=== PATIENT | male | born 1945 | race Caucasian/White ===

== ENCOUNTER 2021-01-01 22:15 | Emergency (ER) | payer OTHER ==
[~2021-01-01] VITALS: Ht 177.8 cm; Wt 63.5 kg
[~2021-01-01 22:15] MED LIST: RANI150 PO
[2021-01-01] MEDS ORDERED: ZESTORETIC 20-1 EAC1 (22:42)
[2021-01-01 22:54] LABS: BASOPHILS ABSOLUTE AUTO 0.04 K/mm3 (0.00-0.23); BASOPHILS PERCENT AUTO 0 % (0-2); EOSINOPHILS PERCENT AUTO 2 % (0-6); Hematocrit 38.8 % (37.0-53.0); Hemoglobin 13.7 g/dL (13.5-17.5); IMMATURE GRAN ABSOLUTE AUTO 0.06 K/mm3 (0.00-0.10); IMMATURE GRAN PERCENT AUTO 1 % (0-1); LYMPHOCYTES ABSOLUTE AUTO 2.42 K/mm3 (0.84-5.20); LYMPHOCYTES PERCENT AUTO 22 % (21-46); MONOCYTES ABSOLUTE AUTO 0.77 K/mm3 (0.16-1.47); MONOCYTES PERCENT AUTO 7 % (4-13); Mean Corpuscular HGB 32.5 pg (26.0-34.0); Mean Corpuscular HGB Conc 35.3 g/dL (31.5-36.5); Mean Corpuscular Volume 92 fL (80-100); Mean Platelet Volume 10.1 fL (9.1-12.4); NEUTROPHILS ABSOLUTE AUTO 7.61 K/mm3 (1.96-9.15); NEUTROPHILS PERCENT AUTO 69 % (41-73); Platelet Count 263 K/mm3 (150-400); RDW Coefficient Variation 12.5 % (11.7-14.2); RDW Standard Deviation 42.1 fL (35.1-46.3); Red Blood Cell Count 4.22 M/mm3 (4.30-5.90)
[2021-01-01 22:55] LABS: Source, Urine Voided
[2021-01-01 22:57] LABS: Bilirubin, Urine Neg (Neg); Blood, Urine 1+ (Neg); Glucose Qualitative, Urine Neg (Neg); Ketones, Urine Neg (Neg); Leukocyte Esterase, Urine Neg (Neg); Nitrite, Urine Neg (Neg); Protein, Urine Neg (Neg); Urobilinogen, Urine NORM (Normal); pH, Urine 6.5 (5.0-8.0)
[2021-01-01 23:08] LABS: International Normalized Ratio 0.98; Prothrombin Time Results 10.5 Sec (9.7-11.5)
[2021-01-01 23:09] LABS: Appearance, Urine Clear (Clear); Bacteria Not Seen /hpf; Color, Urine Yellow (P-Yellow); Red Blood Cells, Urine Rare /hpf (0-2); Squamous Epithelial Cells Not Seen /hpf (Few); White Blood Cells, Urine Not Seen /hpf (0-5)
[2021-01-01 23:13] LABS: Ethanol (Alcohol), Blood, Med 227 mg/dL
[2021-01-01 23:14] LABS: Alanine Aminotransfer (ALT/SGP 18 U/L (12-78); Albumin, Blood 3.9 g/dL (3.4-5.0); Albumin/Globulin Ratio 1.1 (0.8-1.8); Alk Phos 52 U/L (50-136); Anion Gap 10 mmol/L (6-16); Aspartate Aminotrans (AST/SGOT 31 U/L (12-37); Bilirubin, Total 0.6 mg/dL (0.1-1.0); Blood Urea Nitrogen 9 mg/dL (8-24); Bun/Creatinine Ratio 10.9 (12.0-20.0); CO2, Blood 26 mmol/L (21-32); Calcium, Blood 8.9 mg/dL (8.5-10.1); Chloride, Blood 98 mmol/L (98-108); Creatinine, Blood 0.83 mg/dL (0.60-1.20); Globulin, Blood 3.7 g/dL (2.2-4.0); Glomerular Filtration Rate >60 (60-); Glucose, Blood 112 mg/dL (70-99); Potassium, Blood 3.1 mmol/L (3.5-5.5); Sodium, Blood 134 mmol/L (136-145); Total Protein, Blood 7.6 g/dL (6.4-8.2); Troponin I <0.015 ng/mL (0.000-0.040)
[2021-01-02 02:04] LABS: Influenza A, PCR NEGATIVE (NEGATIVE); Influenza B, PCR NEGATIVE (NEGATIVE); Resp Syncytial Virus, PCR NEGATIVE (NEGATIVE); SARS-Cov-2 (COVID-19) PCR, MMC NEGATIVE (NEGATIVE)
[2021-05-12] MEDS ORDERED: CHLO25B PO (17:02)
[2021-05-12] MEDS ORDERED: CREON DR 12,001 EACH PT (17:03)
[2021-05-12] MEDS ORDERED: DOCU LIQUI50 MG/5 ML PO (17:04)
[2021-05-12] MEDS ORDERED: FENTANYL1 EAC7 TOP (17:04)
[2021-05-12] MEDS ORDERED: HYDHCL25 PO (17:05)
[2021-05-12] MEDS ORDERED: NAPROXEN250 MG PO (17:05)
[2021-05-12] MEDS ORDERED: MIRALAX17 GM PO (17:06)
[2021-05-12] MEDS ORDERED: Protonix40 M1 PO (17:06)
[2021-05-12] MEDS ORDERED: SERT20L PO (17:07)
[2021-05-24] MEDS ORDERED: DILAUDID 00.5 MG/0.1 PO (07:51)
[2021-05-24] MEDS ORDERED: Ativan1 MG PO (07:52)
[2021-05-24] MEDS ORDERED: ONDA4SO PO (07:53)
[2021-05-24] MEDS ORDERED: DULCOLAX400 MG/51 PO (07:53)
== END 2021-01-02 02:31 | disposition short-term general hospital (02) ==
LOC: ER 22:15
PROVIDERS: Emergency Medicine
DX: S09.90XA Unspecified injury of head, initial encounter (principal); X58.XXXA Exposure to other specified factors, initial encounter; Z20.822 Contact with and (suspected) exposure to COVID-19
CPT/HCPCS: 0241U; 70450; 71045; 72125; 80053; 81001; 84484; 85025; 85610; 90471; 90714; 93005; 93010; 96374; 96376; 99285-25; G0480; J3010; L0160

== ENCOUNTER 2021-02-01 09:53 | Inpatient (IN) | payer OTHER ==
[~2021-02-01] VITALS: Ht 177.8 cm; Wt 70.2 kg
[~2021-02-01 09:53] MED LIST changes: +ZESTORETIC 20-1 EAC1
[2021-02-01] MEDS ORDERED: Adalat/Procardi10 MG (10:13)
[2021-02-01] MEDS ORDERED: MELATONIN5 M1 PO ×2 (10:25→18:47)
[2021-02-01] MEDS ORDERED: TRAZ50 PO (10:25)
[2021-02-01] MEDS ORDERED: Atarax10 MG PO (10:25)
[2021-02-01 10:30] LABS: Hematocrit 41.3 % (37.0-53.0); Hemoglobin 14.2 g/dL (13.5-17.5); Mean Corpuscular HGB 32.1 pg (26.0-34.0); Mean Corpuscular HGB Conc 34.4 g/dL (31.5-36.5); Mean Corpuscular Volume 93 fL (80-100); Mean Platelet Volume 9.9 fL (9.1-12.4); Platelet Count 370 K/mm3 (150-400); RDW Coefficient Variation 12.8 % (11.7-14.2); RDW Standard Deviation 43.7 fL (35.1-46.3); Red Blood Cell Count 4.42 M/mm3 (4.30-5.90); White Blood Cell Count 14.06 K/mm3 (4.00-11.30)
[2021-02-01 10:47] LABS: Alanine Aminotransfer (ALT/SGP 13 U/L (12-78); Albumin, Blood 3.1 g/dL (3.4-5.0); Albumin/Globulin Ratio 0.8 (0.8-1.8); Alk Phos 59 U/L (50-136); Anion Gap 10 mmol/L (6-16); Aspartate Aminotrans (AST/SGOT 27 U/L (12-37); Bilirubin, Total 1.1 mg/dL (0.1-1.0); Blood Urea Nitrogen 18 mg/dL (8-24); Bun/Creatinine Ratio 22.3 (12.0-20.0); CO2, Blood 27 mmol/L (21-32); Calcium, Blood 10.9 mg/dL (8.5-10.1); Chloride, Blood 100 mmol/L (98-108); Creatinine, Blood 0.81 mg/dL (0.60-1.20); Globulin, Blood 4.1 g/dL (2.2-4.0); Glomerular Filtration Rate >60 (60-); Glucose, Blood 164 mg/dL (70-99); Potassium, Blood 3.5 mmol/L (3.5-5.5); Sodium, Blood 137 mmol/L (136-145); Total Protein, Blood 7.2 g/dL (6.4-8.2); Troponin I <0.015 ng/mL (0.000-0.040)
[2021-02-01 11:15] LABS: BAND PERCENT MAN 28 % (0-8); BASOPHILS PERCENT MAN 0 % (0-2); EOSINOPHILS PERCENT MAN 0 % (0-6); LYMPHOCYTES ABSOLUTE MAN 1.12 K/mm3 (0.84-5.20); LYMPHOCYTES PERCENT MAN 8 % (21-46); METAMYELOCYTE ABSOLUTE MAN 0.14 K/mm3 (0.00-0.00); METAMYELOCYTE PERCENT MAN 1 % (0-0); MONOCYTES ABSOLUTE MAN 0.28 K/mm3 (0.16-1.47); MONOCYTES PERCENT MAN 2 % (4-13); NEUTROPHILS ABSOLUTE MAN 12.51 K/mm3 (1.96-9.15); SEG NEUTROPHILS PERCENT MAN 61 % (41-73); TOTAL CELLS COUNTED 100
[2021-02-01] MEDS ORDERED: Hydroxyzine HCl50 MG PO (16:46)
[2021-02-01] MEDS ORDERED: BACL10 PO (16:46)
[2021-02-01] MEDS ORDERED: CHLO25B PO (16:46)
[2021-02-01] MEDS ORDERED: B-1100 M1 PO (16:47)
[2021-02-01] MEDS ORDERED: NAPROXEN250 M1 PO (16:47)
[2021-02-01] MEDS ORDERED: NIFE30ER PO (16:47)
[2021-02-01] MEDS ORDERED: NICO21TP TOP (16:47)
[2021-02-01] MEDS ORDERED: TRAZ100 PO (16:48)
[2021-02-01 17:00] LABS: Influenza A, PCR NEGATIVE (NEGATIVE); Influenza B, PCR NEGATIVE (NEGATIVE); Resp Syncytial Virus, PCR NEGATIVE (NEGATIVE); SARS-Cov-2 (COVID-19) PCR, MMC NEGATIVE (NEGATIVE)
--- NOTE | 2021-02-01 17:30 | NUR ---
02/01/21 1730 Tesha Arboleda PT ON SCHEDULED ANTIBIOTICS
--- NOTE | 2021-02-02 01:41 | NUR ---
BLADDER SCAN OBTAINED PT HAS BEEN UNABLE TO VOID. DISCUSSED VOIDING POST-OP, URINE RETENTION, AND POSSIBILITY OF NEEDING STRAIGHT CATH. PT WANTS TO WAIT A LITTLE LONGER AND TRY TO VOID.
[2021-02-02 04:39] LABS: Hematocrit 35.3 % (37.0-53.0); Hemoglobin 12.3 g/dL (13.5-17.5); Mean Corpuscular HGB 32.5 pg (26.0-34.0); Mean Corpuscular HGB Conc 34.8 g/dL (31.5-36.5); Mean Corpuscular Volume 93 fL (80-100); Mean Platelet Volume 9.9 fL (9.1-12.4); Platelet Count 297 K/mm3 (150-400); RDW Coefficient Variation 13.1 % (11.7-14.2); RDW Standard Deviation 44.5 fL (35.1-46.3); Red Blood Cell Count 3.78 M/mm3 (4.30-5.90); White Blood Cell Count 18.05 K/mm3 (4.00-11.30)
[2021-02-02 04:53] LABS: Alanine Aminotransfer (ALT/SGP 11 U/L (12-78); Albumin, Blood 2.1 g/dL (3.4-5.0); Albumin/Globulin Ratio 0.6 (0.8-1.8); Alk Phos 40 U/L (50-136); Anion Gap 6 mmol/L (6-16); Aspartate Aminotrans (AST/SGOT 10 U/L (12-37); Bilirubin, Total 0.5 mg/dL (0.1-1.0); Blood Urea Nitrogen 33 mg/dL (8-24); Bun/Creatinine Ratio 33.4 (12.0-20.0); CO2, Blood 27 mmol/L (21-32); Calcium, Blood 9.9 mg/dL (8.5-10.1); Chloride, Blood 106 mmol/L (98-108); Creatinine, Blood 0.99 mg/dL (0.60-1.20); Globulin, Blood 3.5 g/dL (2.2-4.0); Glomerular Filtration Rate >60 (60-); Glucose, Blood 136 mg/dL (70-99); Magnesium, Blood 1.9 mg/dL (1.6-2.4); Potassium, Blood 3.1 mmol/L (3.5-5.5); Sodium, Blood 139 mmol/L (136-145); Total Protein, Blood 5.6 g/dL (6.4-8.2)
[2021-02-02 05:33] LABS: BAND PERCENT MAN 23 % (0-8); BASOPHILS PERCENT MAN 0 % (0-2); EOSINOPHILS PERCENT MAN 0 % (0-6); LYMPHOCYTES ABSOLUTE MAN 1.44 K/mm3 (0.84-5.20); LYMPHOCYTES PERCENT MAN 8 % (21-46); METAMYELOCYTE ABSOLUTE MAN 0.18 K/mm3 (0.00-0.00); METAMYELOCYTE PERCENT MAN 1 % (0-0); MONOCYTES PERCENT MAN 5 % (4-13); NEUTROPHILS ABSOLUTE MAN 15.52 K/mm3 (1.96-9.15); SEG NEUTROPHILS PERCENT MAN 63 % (41-73); TOTAL CELLS COUNTED 100
--- NOTE | 2021-02-02 06:03 | NUR ---
SHIFT SUMMARY PT HAS BEEN A/O X4 OVERNIGHT. S/P GRAHM PATCH ON 02/01. PT HAS DENIED PAIN OVERNIGHT. NPO WITH NG TUBE TO LOW INT. SUCTION IN PLACE. 280ML FROM NG TUBE OVERNIGHT. RICCARDO DRAIN HAD 60ML OUT THIS SHIFT. O2 WEANED FROM 3L DOWN TO 1.5L WITH O2 AT 94%. C-COLLAR IN PLACE R/T RECENT NECK SURGERY. PT WAS UNABLE TO VOID AFTER SURGERY AND HAD BLADDER SCAN OF 471 THIS AM; NOTIFIED PROVIDER AND OBTAINED ORDER FOR ONE TIME STRAIGHT CATH. PT TOLERATED WELL. PT RESTING IN BED AT THIS TIME. CALL LIGHT IN REACH.
--- NOTE | 2021-02-02 17:53 | NUR ---
SHIFT SUMMARY POD 1 PERF ULCER REPAIR.
--- NOTE | 2021-02-02 18:25 | NUR ---
SHIFT SUMMARY POD 1 ULCER REPAIR PT AA0X4, VSS. PT HAS DENIED PASSING GAS DURING SHIFT, NO BM. PT REPORTS NO PAIN DURING SHIFT. DENIES NAUSEA SINCE REMOVAL OF NG TUBE THIS AM. TOLERATING SIPS AND CHIPS. PT ABLE TO STAND AND TRANSFER TO CHAIR WITH MINIMAL ASSISTANCE. REPORTS SOME SOB, REMAINS ON 2L OXYGEN VIA NC. SATS >93%. LEFT LOWER LOBE DIMINISHED DURING SHIFT. RICCARDO DRAIN PATENT AND DRAINING. WOUND VAC IN PLACE. PT REPORTS BEING CONCERNED ABOUT HOME SITUATION WHEN RETURNING TO HIS LIVE IN [place], WILL GET TEARS IN HIS EYE WHEN DISCUSSING GOING HOME. PT CURRENTLY RESTING IN BED WATCHING TV. DENIES FURTHER NEEDS. PT ABLE TO URINATE ON HIS OWN WHILE STANDING.
[2021-02-02] MEDS ORDERED: MELATONIN5 M1 PO (19:11)
[2021-02-03 04:37] LABS: Hemoglobin 10.5 g/dL (13.5-17.5); Mean Corpuscular HGB 32.3 pg (26.0-34.0); Mean Corpuscular Volume 92 fL (80-100); Mean Platelet Volume 9.8 fL (9.1-12.4); Platelet Count 253 K/mm3 (150-400); RDW Coefficient Variation 13.1 % (11.7-14.2); RDW Standard Deviation 44.2 fL (35.1-46.3); Red Blood Cell Count 3.25 M/mm3 (4.30-5.90); White Blood Cell Count 14.88 K/mm3 (4.00-11.30)
[2021-02-03 04:55] LABS: Anion Gap 6 mmol/L (6-16); Blood Urea Nitrogen 25 mg/dL (8-24); Bun/Creatinine Ratio 28.9 (12.0-20.0); CO2, Blood 27 mmol/L (21-32); Calcium, Blood 9.2 mg/dL (8.5-10.1); Chloride, Blood 105 mmol/L (98-108); Creatinine, Blood 0.86 mg/dL (0.60-1.20); Glomerular Filtration Rate >60 (60-); Glucose, Blood 85 mg/dL (70-99); Potassium, Blood 2.9 mmol/L (3.5-5.5); Sodium, Blood 138 mmol/L (136-145)
--- NOTE | 2021-02-03 05:02 | NUR ---
SHIFT SUMMARY PT IS A/O X4. S/P GRAHM PATCH 02/01. BRIANA AND RICCARDO IN PLACE TO MIDLINE WNL. C-COLLAR IN PLACE FOR RECENT NECK SURGERY. PT IS TAKING SIPS OF WATER W/O NAUSEA. VOIDING IN URINAL. NO BM THIS SHIFT. HE HAS DENIED PAIN OVERNIGHT. PT WAS ABLE TO STAND AT EDGE OF BED WITH 2X ASSIST AND CANE. PT IS RESTING AT THIS TIME, CALL LIGHT IN REACH.
[2021-02-03 05:25] LABS: BAND PERCENT MAN 16 % (0-8); BASOPHILS PERCENT MAN 0 % (0-2); EOSINOPHILS PERCENT MAN 0 % (0-6); LYMPHOCYTES ABSOLUTE MAN 1.78 K/mm3 (0.84-5.20); LYMPHOCYTES PERCENT MAN 12 % (21-46); MONOCYTES ABSOLUTE MAN 0.44 K/mm3 (0.16-1.47); MONOCYTES PERCENT MAN 3 % (4-13); NEUTROPHILS ABSOLUTE MAN 12.64 K/mm3 (1.96-9.15); SEG NEUTROPHILS PERCENT MAN 69 % (41-73); TOTAL CELLS COUNTED 100
--- NOTE | 2021-02-03 06:00 | NUR ---
CALL PLACED TO PHYSICIAN REGARDING AM POTASSIUM LEVEL. AWAITING PHONE CALL RETURN.
--- NOTE | 2021-02-03 18:13 | NUR ---
SHIFT SUMMARY PT A&O X 4. POD 2 FROM MANUEL PATCH ULCER REPAIR. PT STATED NOT FEELING WELL TODAY. WAS ABLE TO RELEASE FLATUS FOR THE FIRST TIME TODAY SINCE SURGERY. FELT LIKE HE NEEDED TO HAVE A BM. TRANSFERRED TO BEDSIDE COMMODE BUT JUST RELEASED FLATUS AND URINATED 500 ML WITHOUT DIFFICULTY. ORDERS GIVEN TO SWITCH PT TO CLEAR LIQUID DIET. TOLERATED STRAWBERRY JELLO WITH MILD ABD DISCOMFORT. LEFT FOREARM IV INFULTRATED AND D/C'D. INSERTED NEW 20 G IV ON RIGHT UPPER ARM. PT TOLERATED WELL. COLLECTED 180 ML SEROSANGINOUS FLUID FROM RICCARDO DRAIN DURING SHIFT. DIME SIZE DARK RED DRAINAGE ON PICCO MIDLINE ABD DRESSING THAT IS NEW TODAY FROM YESTERDAY. DISCUSSED IMPORTANCE OF MOVING AND DEEP BREATHING. OFFERED PT TO GET UP TO CHAIR AND ORAL CARE THROUGHOUT THE DAY, PT DECLINED.
--- NOTE | 2021-02-03 18:31 | NUR ---
PT HAD LOW GRADE FEVER AT VITALS CHECK. HAVE BEEN ENCOURAGING COUGHING AND DEEP BREATHING. PT DECLINED COOL WASHCLOTH WHEN OFFERED. REPORTS FEELING A LITTLE COLD AT THIS TIME.
--- NOTE | 2021-02-03 19:44 | NUR ---
spoke with dr dixon regarding fever and pt's pain. pt does not want to take iv pain medications. dr dixon to place orders. will report to oncoming rn and administer once available.
[2021-02-04 04:16] LABS: Anion Gap 7 mmol/L (6-16); Blood Urea Nitrogen 20 mg/dL (8-24); Bun/Creatinine Ratio 23.9 (12.0-20.0); CO2, Blood 26 mmol/L (21-32); Calcium, Blood 8.6 mg/dL (8.5-10.1); Chloride, Blood 107 mmol/L (98-108); Creatinine, Blood 0.84 mg/dL (0.60-1.20); Glomerular Filtration Rate >60 (60-); Glucose, Blood 98 mg/dL (70-99); Magnesium, Blood 1.9 mg/dL (1.6-2.4); Potassium, Blood 2.7 mmol/L (3.5-5.5); Sodium, Blood 140 mmol/L (136-145)
--- NOTE | 2021-02-04 04:36 | NUR ---
SHIFT SUMMARY: POD 3 ULCER REPAIR PATIENT IS ALERT AND ORIENTED X4 WHILE AWAKE. VS ARE WNL AND IS ON RA. PAIN IS CONTROLLED WITH PO ROGER. HE HAS A C-COLLAR ON DUE TO PREVIOUS SPINAL SURGERY. HE IS VOIDING AND TOLERATING SMALL AMOUNTS OF PO INTAKE. BRIANA IS C/D/I. RICCARDO DRAIN HAS HAD SMALL AMOUNTS OF RED OUTPUT. IT WAS RECENTLY EMPTIED AND BULB IS COMPRESSED. PATIENT CALLS APPROPRIATELY. HE HAS CONTINUOUS PROTONIX GOING THROUGH ONE IV AND FLUIDS IN THE OTHER IV. BOTH IVS ARE WNL AND INFUSING. CALL LIGHT WITHIN REACH. THE PLAN IS TO ENCOURAGE DEEP BREATHING AND INCREASE PO INTAKE.
--- NOTE | 2021-02-04 15:12 | NUR ---
RICCARDO OUTPUT: AT ABOUT 11:15, 10ML OF DARK GREEN BILE LIKE FLUID DRAINED FROM RICCARDO, PT REPORTS INCREASED PAIN AT LOWER ABD, ABD IS MODERATLY DISTENDED, NO SIGNIFICANT CHANGE FROM MY ASSESSMENT THIS MORNING, VSS. DR. FITZPATRICK NOTIFIED OF THESE FINDINGS, SEE NEW ORDERS.
--- NOTE | 2021-02-04 16:42 | NUR ---
NGT: THIS RN ATTEMPTED NGT PLACEMENT IN L NARE WITHOUT SUCCESS. DR. FITZPATRICK AT BEDSIDE AT ABOUT 1630 AND NGT PLACED IN R NARE AND SECURED, ABOUT 500ML OF DARK GREEN OUTPUT IN CANISTER. RICCARDO DRAIN TO SUCTION AT THIS TIME WELL, SCANT DRINAGE PRESENT. WILL CTM.
--- NOTE | 2021-02-05 06:35 | NUR ---
SHIFT SUMARRY LYING IN HIGH FOWLERS WITH EYES CLOSED. HAS RESTED WELL THIS SHIFT. NO SIGNIFICANT CHANGES NOTED. HAS HAD SIPS AND CHIPS. NG TUBE TO LEFT NARE REMAINS PATENT, DRAINING GREEN FLUID TO LIWS. PLACEMENT VERIFIED WITH AIR BOLUS AND RESIDUAL CHECK. IVF AT TKO FOR ABX. RESPIRATIONS CLEAR BILATERALLY. HAS DENIES PAIN, DISCOMFORT, OR FURTHER NEEDS AT THIS TIME. SAFETY MEASURES IN PLACE. WILL CONTINUE TO MONITOR AND GIVE HAND OFF TO ONCOMING SHIFT USING SBAR DURING BEDSIDE REPORT.
[2021-02-05 08:40] LABS: Anion Gap 8 mmol/L (6-16); Blood Urea Nitrogen 34 mg/dL (8-24); CO2, Blood 22 mmol/L (21-32); Calcium, Blood 8.4 mg/dL (8.5-10.1); Chloride, Blood 110 mmol/L (98-108); Creatinine, Blood 1.03 mg/dL (0.60-1.20); Glomerular Filtration Rate >60 (60-); Glucose, Blood 190 mg/dL (70-99); Magnesium, Blood 2.2 mg/dL (1.6-2.4); Potassium, Blood 3.6 mmol/L (3.5-5.5); Sodium, Blood 140 mmol/L (136-145)
--- NOTE | 2021-02-05 19:24 | NUR ---
SUMMARY: NO ACUTE CHANGE TODAY, VSS, A/O. SURGICAL SITE WNL. ABD SOFTER TODAY THAN YESTERDAY. RICCARDO AND NGT TO LOW INTER. SUCTION, SEE CHARTED OUTPUT. PT REPORTS PASSING GAS, NO BM. PT REPORTED PAIN AFTER SITTING UP IN CHAIR FOR SOME TIME, OTHERWISE DENIED. PT ABLE TO WORK WITH PHYSICAL THERAPY AND TRANSFERED TO CHAIR X2 TODAY. NO ACUTE CONCERNS AT THIS TIME, REPORT PASSED TO ADILIA RN.
--- NOTE | 2021-02-06 05:00 | NUR ---
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 WHEN ASKED WHAT HE WAS DOING HE STATED, "I'M GOING HOME, I DONE WITH THIS PLACE." WHEN NURSING REITERATED NEED TO STAY IN HOSPITAL AND TALK TO ABOUT WANTING TO GO HOME HE SAID HE DIDN'T CARE. HE SAID THAT HE HAD FRIENDS THAT WILL COME BY AND HELP HIM IF HE NEEDS THEM T. NURSING REMINDED HIM THAT THE NG TUBE WAS A NECESSITY AND NEEDED TO BE REPLACE HE STATED, "LIKE HELL YOU ARE, YOU'RE NOT PUTTING THAT BACK IN ME!" ABLE TO ANSWER ALL QUESTIONS PROPRELY, BUT ADMITS TO CONFUSION AT TIMES. PT FOUND TO HAVE HAD A SMALL BM WITH A NUGGET AND CLEAR MUCUS. STATED THAT HE NEEDED TO GET OOB AND SIT ON COMMODE TO FINISH HAVING HIS BM. 2 PERSON ASSIST WITH GB/FWW TO COMMODE, PT RUSHED AND WORE HIMSELF OUT. NURSING REITERATED NEED TO SLOW DOWN AND MAKE PURPOSEFUL MOVEMENTS. SMALL FORMED BM NOTED AND 400ML URINE IN COMMODE. ASSISTED BACK TO BED AND REPOSITIONED FOR COMFORT. STATED THAT HE HAD PLANNED ON LEAVING THIS MORNING, BUT WILL STILL LEAVE TODAY. STATED, "I DON'T WANT ANYMORE OF THAT FENTANYL STUFF, IT WORE ME OUT." DENIES FURTHER NEEDS OR WANTS AT THIS TIME. SAFETY MEASURES IN PLACE. WILL CONTINUE TO MONITOR AND GIVE HAND OFF TO ONCOMING SHIFT USING SBAR.
[2021-02-06 05:54] LABS: Hematocrit 35.7 % (37.0-53.0); Hemoglobin 11.9 g/dL (13.5-17.5); Mean Corpuscular HGB 31.5 pg (26.0-34.0); Mean Corpuscular HGB Conc 33.3 g/dL (31.5-36.5); Mean Corpuscular Volume 94 fL (80-100); Mean Platelet Volume 9.6 fL (9.1-12.4); Platelet Count 423 K/mm3 (150-400); RDW Coefficient Variation 13.5 % (11.7-14.2); RDW Standard Deviation 47.1 fL (35.1-46.3); Red Blood Cell Count 3.78 M/mm3 (4.30-5.90); White Blood Cell Count 21.29 K/mm3 (4.00-11.30)
[2021-02-06 06:16] LABS: Anion Gap 8 mmol/L (6-16); Blood Urea Nitrogen 38 mg/dL (8-24); Bun/Creatinine Ratio 46.2 (12.0-20.0); CO2, Blood 23 mmol/L (21-32); Calcium, Blood 8.5 mg/dL (8.5-10.1); Chloride, Blood 111 mmol/L (98-108); Creatinine, Blood 0.82 mg/dL (0.60-1.20); Glomerular Filtration Rate >60 (60-); Glucose, Blood 128 mg/dL (70-99); Potassium, Blood 3.2 mmol/L (3.5-5.5); Sodium, Blood 142 mmol/L (136-145)
--- NOTE | 2021-02-06 07:32 | NUR ---
ASSUMED CARE: PT LAYING FLAT IN BED, C COLLAR ON. NG TO LIS TO RICCARDO DRAIN. NG PULLED OUT BY PT OVERNIGHT. WILL DISCUSS WITH SURGEON. NO FURTHER NEEDS AT THIS TIME.
--- NOTE | 2021-02-06 08:44 | NUR ---
DR SHARPE CAME TO SEE PT AND IS AWARE THAT PT REMOVED NG TUBE. CALL TO MANAGER [employer] FOR PICC LINE PLACEMENT
--- NOTE | 2021-02-06 10:17 | NUR ---
MESSAGE LEFT AT DR KESSLER'S OFFICE REGARDING PT REMOVING NG TUBE LAST NIGHT.
--- NOTE | 2021-02-06 10:18 | NUR ---
SPOKE WITH DR KESSLER REGARDING PULLED NG TUBE LAST LIGHT. REPORTED APPROX 240ML GREEN OUTPUT IN DRAIN LAST NIGHT AND MINIMAL TODAY SINCE START OF SHIFT. RECIEVED ORDER TO KEEP NG TUBE OUT AT THIS TIME.
--- NOTE | 2021-02-06 16:19 | NUR ---
DR KESSLER VISIT DR KESSLER IN TO VISIT PATIENT. PRIMARY RN DISCUSSED COLOR AND QUANTITY OF RICCARDO DRAINAGE. PRIMARY RN DISCUSSED PATIENT PULLING NG TUBE OUT DURING THE NIGHT WITH DR KESSLER. NG TUBE TO REMAIN OUT AT THIS TIME. ORDER FOR TPN RECIEVED BY PRIMARY RN.
--- NOTE | 2021-02-06 18:40 | NUR ---
SHIFT SUMMARY POD 4 FROM MANUEL PATCH ULCER REPAIR. PATIENT IS A/O X4 WHILE AWAKE. VS STABLE AND RECIEVING 3.5L VIA NC. C COLLAR IN PLACE FROM RECENT SPINE SURGERY. BRIANA DRESSING C/D/I. RICCARDO DRESSING C/D/I. RICCARDO DRAIN HOOKED UP TO INTERMITTENT SUCTION. GREEN IN COLOR. NG TUBE WAS PULLED OUT DURING THE NIGHT. NG TUBE WILL REMAIN OUT AT THIS TIME PER DR. KESSLER. PICC LINE PLACED THIS MORNING. DIETARY CONSULTED FOR SUPPLEMENTAL NUTRITION. PAIN HAS BEEN WELL CONTROLLED THROUGHOUT SHIFT. MEDICATED PER EMAR. NO FURTHER COMPLAINTS OR CONCERNS FROM PATIENT.
[2021-02-07 06:23] LABS: Anion Gap 7 mmol/L (6-16); Blood Urea Nitrogen 28 mg/dL (8-24); Bun/Creatinine Ratio 37.5 (12.0-20.0); CO2, Blood 25 mmol/L (21-32); Calcium, Blood 8.2 mg/dL (8.5-10.1); Chloride, Blood 112 mmol/L (98-108); Creatinine, Blood 0.75 mg/dL (0.60-1.20); Glomerular Filtration Rate >60 (60-); Glucose, Blood 127 mg/dL (70-99); Magnesium, Blood 2.6 mg/dL (1.6-2.4); Potassium, Blood 3.4 mmol/L (3.5-5.5); Sodium, Blood 144 mmol/L (136-145)
--- NOTE | 2021-02-07 07:25 | NUR ---
SHIFT SUMMARY AOX4.APPROPRIATE AND PLEASANT T/O SHIFT. HE SLEPT GOOD T/O THE NIGHT. PT DENIES PAIN. VSS. PT REMAIN NPO, DENIES NAUSEA AND VOMITING. PT ON 3.5L VIA N/C. RICCARDO DRESSING CDI W/ LOW INT SUCTION WITH 10ML OUTPUT, GREEN COLOR. PT HAD A BED BATH AND SHAMPOO AT THIS MORNING. PT GOT UP IN BEDSIDE COMMODE X1, WEAK AND HAD MILD DIZZINESS. HE HAS BEEN PASSING FLATUS BUT NO BM T/O SHIFT. CALL LIGHT WITHIN REACH. WILL PROVIDE REPORT FOR UPCOMING AM NURSE.
--- NOTE | 2021-02-07 17:02 | NUR ---
SHIFT SUMMARY PT A&OX4, VSS, POD6 EXP LAP, BRIANA WNL, RICCARDO DRAIN TO SUCTION 150 MLS/TO GRAVITY PER SURGEON ORDER NOW. PT REP PASSING FLATUS/SMALL BM TODAY. DENIES PAIN. DENIES N&V WITH INTAKE OF ICE CHIPS, OTHERWISE NPO. TPN @ 75 MLS/HR. STAND PIVOT TO BSC AND UP TO CHAIR TODAY; DEEP BREATHING EXERCISES & BUE/BLE EXERCISES EDU TO/DEMONSTRATED BY PATIENT ENCOURAGED TO DO INTERMITTENTLY WHILE AWAKE. WILL REPORT TO ONCOMING NOC RN.
[2021-02-08 06:28] LABS: Hemoglobin 10.1 g/dL (13.5-17.5); Mean Corpuscular HGB 33.6 pg (26.0-34.0); Mean Corpuscular HGB Conc 32.6 g/dL (31.5-36.5); Mean Platelet Volume 10.7 fL (9.1-12.4); Platelet Count 469 K/mm3 (150-400); RDW Coefficient Variation 14.4 % (11.7-14.2); RDW Standard Deviation 54.4 fL (35.1-46.3); Red Blood Cell Count 3.01 M/mm3 (4.30-5.90); White Blood Cell Count 32.23 K/mm3 (4.00-11.30)
--- NOTE | 2021-02-08 06:28 | NUR ---
SHIFT SUMMARY: GORDON IS A&O X3, VSS, NO ACUTE EVENTS OVERNIGHT. HE REMAINS NPO, DENIES NAUSEA, AND HAS HAD BOWEL MOVEMENTS OVERNIGHT. HE REPORTS THAT HE IS UNABLE TO GET ANY SLEEP AT ALL WITHOUT HIS HOME REGIMEN OF TRAZODONE, MELATONIN, AND HYDROXYZINE. C-COLLAR IN PLACE. HE IS A TWO PERSON ASSIST TO THE BEDSIDE COMMODE WITH THE GAIT BELT AND FWW. ATTENDS IN PLACE. HE HAS DECLINED PAIN MEDICATION THIS SHIFT. HE IS ABLE TO MAKE HIS NEEDS KNOWN. HE IS LYING IN BED WITH THE CALL LIGHT IN REACH. WILL REPORT TO DAY SHIFT RN.
[2021-02-08 06:30] LABS: Mean Corpuscular Volume 103 fL (80-100)
[2021-02-08 06:37] LABS: BAND PERCENT MAN 14 % (0-8); BASOPHILS PERCENT MAN 0 % (0-2); EOSINOPHILS PERCENT MAN 0 % (0-6); LYMPHOCYTES ABSOLUTE MAN 1.61 K/mm3 (0.84-5.20); LYMPHOCYTES PERCENT MAN 5 % (21-46); MONOCYTES ABSOLUTE MAN 0.64 K/mm3 (0.16-1.47); MONOCYTES PERCENT MAN 2 % (4-13); NEUTROPHILS ABSOLUTE MAN 29.97 K/mm3 (1.96-9.15); SEG NEUTROPHILS PERCENT MAN 79 % (41-73); TOTAL CELLS COUNTED 100
[2021-02-08 08:18] LABS: Magnesium, Blood 2.5 mg/dL (1.6-2.4)
[2021-02-08 08:23] LABS: Alanine Aminotransfer (ALT/SGP 9 U/L (12-78); Albumin, Blood 1.3 g/dL (3.4-5.0); Albumin/Globulin Ratio 0.4 (0.8-1.8); Alk Phos 92 U/L (50-136); Anion Gap 6 mmol/L (6-16); Aspartate Aminotrans (AST/SGOT 17 U/L (12-37); Bilirubin, Total 0.5 mg/dL (0.1-1.0); Blood Urea Nitrogen 26 mg/dL (8-24); Bun/Creatinine Ratio 42.3 (12.0-20.0); CO2, Blood 29 mmol/L (21-32); Calcium, Blood 8.2 mg/dL (8.5-10.1); Chloride, Blood 112 mmol/L (98-108); Creatinine, Blood 0.61 mg/dL (0.60-1.20); Globulin, Blood 3.7 g/dL (2.2-4.0); Glomerular Filtration Rate >60 (60-); Glucose, Blood 173 mg/dL (70-99); Phosphorus, Blood 2.1 mg/dL (2.5-4.9); Potassium, Blood 2.6 mmol/L (3.5-5.5); Sodium, Blood 147 mmol/L (136-145)
--- NOTE | 2021-02-08 14:57 | NUR ---
Supportive visit this afternoon. Visit to establish rapport. Pt reports a tolerable 4/10 pain. Pt reports current regimen is managing pain. Pt reports living at home with his girlfriend who is not very supportive. Pt states he is considering breaking off the relationship. Pt reports having 2 children who he has been estranged for 4 years. Engaged in therapeutic listening as Pt reports drinking 6 beers a day and smoking marijuana. Pt had neck surgery at the beginning of January. Listened to life stories and validated concerns. Pt agreeable for continued visits. Palliative Care will remain available.
--- NOTE | 2021-02-08 19:21 | NUR ---
END OF SHIFT SUMMARY: PATIENT STARTED OUT FEELING "HOPEFUL" AND WILLING TO WORK WITH PT THIS MORNING. PATIENT UP TO THE RECLINER THIS MORNING. PATIENT PARTIALLY INCONTINENT IN HIS BRIEF WITH DARK GREEN/BROWN UNFORMED STOOL. PATIENT TOLERATED STANDING WELL AND SITTING IN THE RECLINER. THE DAY PROGRESSED, PATIENT REPORTED INCREASED NAUSEA. PATIENT HAD BEEN MEDICATED FOR PAIN, NAUSEA AND ANXIETY. PATIENT REPORTED THAT THESE MEDICATIONS DID NOT HELP HIM VERY MUCH. PATIENT RELUCTANT TO TAKE MORE MEDICATIONS. PATIENT APPRECIATED COOL CLOTHES AND THE FAN IN THE ROOM. PATIENT DID WORK WITH PT WITH BED EXERCISES. PATIENT REPORTS THAT HE IS FEELING ENCOURAGED THAT TOMORROW WILL BE A BETTER DAY. RICCARDO DRAIN CONTINUED TO HAVE SEROSANGINOUS OUTPUT. PATIENT CONTINUED TO HAVE HYPOACTIVE BOWEL SOUNDS.
[2021-02-09 05:33] LABS: Anion Gap 6 mmol/L (6-16); Blood Urea Nitrogen 24 mg/dL (8-24); Bun/Creatinine Ratio 42.4 (12.0-20.0); CO2, Blood 28 mmol/L (21-32); Calcium, Blood 8.4 mg/dL (8.5-10.1); Chloride, Blood 112 mmol/L (98-108); Creatinine, Blood 0.57 mg/dL (0.60-1.20); Glomerular Filtration Rate >60 (60-); Glucose, Blood 163 mg/dL (70-99); Magnesium, Blood 2.5 mg/dL (1.6-2.4); Phosphorus, Blood 2.6 mg/dL (2.5-4.9); Potassium, Blood 2.7 mmol/L (3.5-5.5); Sodium, Blood 146 mmol/L (136-145)
--- NOTE | 2021-02-09 07:29 | NUR ---
SHIFT SUMMARY POD8 DUODENAL ULCER REPAIR W/ MANUEL PATCH, A/O X4, VSS, TOLERATING SIPS/CHIPS, SOME NAUSEA REPORTED AT BEGINNING OF SHIFT, PT REPORTED CURRENT MED NOT HELPING, ORDER OBTAINED FOR ALTERNATIVE ANTI EMETIC AND PAIN MEDS. PT DENIED PAIN T/O SHIFT. RICCARDO IN PLACE, DRAINING SS FLUID, BRIANA IN PLACE SUCTION SEAL INTACT, PT GIVEN 900 ML CONTRAST IN WHICH HE WAS ABLE TO DRINK 825 ML W/O COMPLAINT OF N/V. PT REQUESTING TO HAVE DIET ADVANCED. NO ACUTE EVENTS THIS SHIFT. CALL LIGHT IN REACH, REPORT GIVEN TO DAY RN.
--- NOTE | 2021-02-09 09:50 | NUR ---
TACHYPNEA AND TACHYCARDIA: MARIAN HART AND MYSELF IN ROOM AT ABOUT 0920 TO HELP PT TO TRANSFER TO RECLINER. CALL RECEIVED FROM BENZOL STILL OPERATOR REPORTING THAT PT HR IN THE 140-160 SR WITH FREQUENT PVC'S AND PAC'S. PT DENIES CP, DOES REPORT "SOME DIZZINESS" AND PAIN AT ABD, PAIN MED GIVEN AND VITAL SIGNS TAKEN AT THIS TIME, RR IS 30-40, LUNGS ARE CLEAR AND DIM, SP02 95% ON 2L NC. PT REPORTS MORE SOB WITH MOVEMENT. DR. SHARPE MADE AWEAR OF THESE FINDINGS AT 0950, NO NEW ORDERS DR. SHARPE TO SPEAK WITH DR. KESSLER. PT RECLINED IN CHAIR AT THIS TIME, RESTING. HR PER TELE IS 109 AND RR 30. WILL CTM.
--- NOTE | 2021-02-09 17:01 | NUR ---
ATTEMPTED TO CALL PT FRIEND SHINE WITH AN UPDATE ON PT STATUS AT THIS TIME. MESSAGE LEFT WITH CALL BACK NUMBER.
--- NOTE | 2021-02-09 17:46 | NUR ---
CHEST PAIN: MYSELF AND MARIAN YANG IN ROOM AT ABOUT 1630 TO TURN AND CHANGE PT'S ATTENDS. AFTER TURNING PT REPORTED CHEST PAIN AND PAIN THAT RADIATED TO L ARM. VSS, SEE RESULTS. DR. SHARPE MADE AWARE OF CP AND PT RR OF 40, ALL OTHER VSS. SEE NEW ORDERS. WILL CTM.
--- NOTE | 2021-02-09 18:14 | NUR ---
PT CONTINUES TO HAVE TACHYPNEA, RR 40'S. PT DENIES CP AT THIS TIME. PER RATING OFFICER HR 110-130'S, SR WITH FREQUENT PAC'S AND PVC'S. DR. SHARPE NOTIFIED OF THESE FINDINGS, AWAITING NEW ORDERS AT THIS TIME.
[2021-02-09 18:35] LABS: PCO2 Arterial 25.5 mmHg (35-45); PO2 Arterial 72.1 mmHg (80-100); pH Blood Arterial 7.54 (7.35-7.45)
--- NOTE | 2021-02-09 18:50 | NUR ---
ATTEMPTED TO CALL REPORT TO PCU AT THIS TIME, AWAITING CALL BACK
--- NOTE | 2021-02-09 19:31 | NUR ---
REPORT PASSED TO MANAGER RAILCORIE VARGAS AT THIS TIME
--- NOTE | 2021-02-09 20:00 | NUR ---
PT AND BELONGINGS TRANSFERED TO ICU 13. SAM Rene RN IN ROOM
--- NOTE | 2021-02-09 20:30 | NUR ---
PT ARRIVES TO ROOM ICU 13 FROM SURGICAL FLOOR AT 1950 THIS EVENENING. PT SLIDE TRANSFERRED FROM BED TO BED. PT GRIMACING, AND SPLINTING ABDOMEN. RICCARDO DRAIN DEFLATED AND HAS SEROUSAINGEOUS DRAINAGE. PT'S HEART RATE IN 130'S WITH RESPIRATORY RATE 30'S. PT MEDICATED WITH 1 MG DILAUDID, AND 1 MG ATIVAN. THIS WAS AFFECTIVE. 16 KOREAN NG TUBE PLACED WITH RETURN OF GAS AND BILE COLORED SECRETIONS. PT RESTING AT THIS TIME. ABDOMEN NO LONGER TAUT AND PT NO LONGER GAURDING. SIMPLE PERCUSION TO ABDOMEN REVEALS VERY HOLLOW SOUNDS LOWER BI LATERAL QUADRANTS, AND LEFT UPPER QUADRANT. DULL TO RIGHT UPPER QUADRANT. HYPO BOWEL TONES NOTED. WILL REVIEW CHART AND PLAN OF CARE FOR THIS PT.
--- NOTE | 2021-02-09 23:42 | NUR ---
PT HAS RECEIVED ONE LITER LACTATED RINGERS BOLUS. 250 ML SALINE BOLUS WITH BLOOD PRESSURES IMPROVING FROM BEING HYPOTENSIVE. WILL USE LEVOPHED IF NEEDED FOR BLOOD PRESSURE SUPPORT. PT REMAINS IN BED RESTING. DOES AWAKEN AND STATE THAT HE IS FEELING SOME BETTER. HAVE SPOKEN TO PT'S FRIEND BRY ON TELEPHONE AND GAVE UPDATE. WILL GIAUE TO MONITOR PT.
--- NOTE | 2021-02-10 05:09 | NUR ---
PT HAS NOT REQUIRED TO HAVE LEVOPHED STARTED. BLOOD PRESSURES REMAINS WITH MAP > 60. HAS BEEN MEDICATED TWICE WITH 1 MG DILAUDID FOR PAIN. PT VOICES THAT HE HAS AN ADDICTIVE PERSONALITY, AND IS AFRAID HE WILL BECOME ADDICTED TO PAIN MEDICATIONS. TEACHING DONE ON PAIN MEDS USED ADEQUATELY AND NOT TO EXCESS TO PAIN MANAGEMENT HAS LOW CHANCES OF ADDICTION. PT VOICES UNDERSTANDING. RICCARDO DRAIN WITH SEROUSAINGEOUS DRAINAGE. NGT WITH GREENISH COLORED DRAINAGE. PT STATES THAT HE FEELS MUCH BETTER SINCE LIWS INITIATED AND GOOD RESULTS FROM DILAUDID. WILL CONTINUE TO MONITOR PT, AND WILL REPORT OFF TO ONCOMING RN.
[2021-02-10 05:25] LABS: Anion Gap 7 mmol/L (6-16); Blood Urea Nitrogen 40 mg/dL (8-24); Bun/Creatinine Ratio 46.2 (12.0-20.0); CO2, Blood 25 mmol/L (21-32); Calcium, Blood 7.9 mg/dL (8.5-10.1); Chloride, Blood 111 mmol/L (98-108); Creatinine, Blood 0.87 mg/dL (0.60-1.20); Glomerular Filtration Rate >60 (60-); Glucose, Blood 211 mg/dL (70-99); Magnesium, Blood 2.4 mg/dL (1.6-2.4); Phosphorus, Blood 4.4 mg/dL (2.5-4.9); Potassium, Blood 4.3 mmol/L (3.5-5.5); Sodium, Blood 143 mmol/L (136-145)
--- NOTE | 2021-02-10 08:00 | NUR ---
[place] of Care: Care assumed at 0700hr. Patient alert and oriented x4. C/o pain to ABD 4/10 and requested prn pain medications. x1 prn Dilaudid given with good effect noted. VSS, spO2 90-94% on RA at shift change, patient then required 2L/NC after receiving prn Dilaudid. ABD moderate distention with hypoactive bowel tones. Mid-line ABD incision with mariana-drain/vac in place. Dressing to mid-line incision shows scant amount of dry serosanguineous drainage, otherwise C/D/I. RICCARDO drain also in place to rt mid ABD, small amount of bile drainage noted in tubing, secured with transparent dressing. Small amount of purulent drainage noted around insertion site, plan to clean and re-place transparent dressing early this shift. PICC line to CLARITA patent and intact, infusing without difficulty. Voiding using urinal in bed without difficulty. Call light in reach, makes needs known. Plan to discuss plan of care with Dr. Bartholomew this morning. Will continue to monitor.
[2021-02-10 09:00] LABS: Vancomycin, Trough 8.5 ug/mL (5.0-10.0)
[2021-02-10 09:31] LABS: Hematocrit 36.1 % (37.0-53.0); Hemoglobin 12.1 g/dL (13.5-17.5); Mean Corpuscular HGB 31.8 pg (26.0-34.0); Mean Corpuscular HGB Conc 33.5 g/dL (31.5-36.5); Mean Platelet Volume 10.6 fL (9.1-12.4); Platelet Count 565 K/mm3 (150-400); RDW Coefficient Variation 13.7 % (11.7-14.2); RDW Standard Deviation 47.8 fL (35.1-46.3); White Blood Cell Count 41.86 K/mm3 (4.00-11.30)
[2021-02-10 09:37] LABS: Mean Corpuscular Volume 95 fL (80-100)
--- NOTE | 2021-02-10 09:53 | NUR ---
Spoke with Bedside RN Paul and discussed case. Pt's perforation is worsening. Dr Bartholomew plans to call [facility] to consider transfer. Pt resting in bed and denies pain and dyspnea at this time. Offered therapeutic listening as Pt discusses current condition. Pt reports hopefullnes that he can be transfered to [facility] and receive intervention. Continued therapeutic listening and validated concerns. Palliative Care will remain available for supportive and therapeutic visits.
[2021-02-10 10:02] LABS: BAND PERCENT MAN 3 % (0-8); BASOPHILS PERCENT MAN 0 % (0-2); EOSINOPHILS PERCENT MAN 0 % (0-6); LYMPHOCYTES ABSOLUTE MAN 2.51 K/mm3 (0.84-5.20); LYMPHOCYTES PERCENT MAN 6 % (21-46); MONOCYTES ABSOLUTE MAN 2.09 K/mm3 (0.16-1.47); MONOCYTES PERCENT MAN 5 % (4-13); MYELOCYTE ABSOLUTE MAN 0.41 K/mm3 (0.00-0.00); MYELOCYTE PERCENT MAN 1 % (0-0); NEUTROPHILS ABSOLUTE MAN 36.83 K/mm3 (1.96-9.15); SEG NEUTROPHILS PERCENT MAN 85 % (41-73); TOTAL CELLS COUNTED 100
--- NOTE | 2021-02-10 10:16 | NUR ---
Update on Plan of Care: Dr. Bartholomew to patient's room at approx 0800hr. Discussed plan with Dr. Bartholomew, who stated he would contact [facility] to [facility] for transfer. Dr. Bartholomew then returned to unit and informed this RN that [facility] would not accept the patient as he is not a surgical candidate at this time. Dr. Bartholomew also stated plan to talk with radiology department to place a drain in the sub-hepatic space.
[2021-02-10 11:15] LABS: International Normalized Ratio 1.03
--- NOTE | 2021-02-10 17:43 | NUR ---
Shift Summary: Patient remains stable throughout shift. VSS, spO2 90-97% on 2-3L/NC. Continues to have ABD pain, affectively managed with x3 prn doses of Dilaudid. Patient transferred to CT room 1 and 1400hr, for CT guided drain placement by Dr. Mc. Uresil drain inserted to upper mid ABD, just medial of midline incision. Drain placed to sub-hepatic space, draining fluid from perforated ulcer. Dark green/brown drainage noted from Uresil drain, serous drainage noted from RICCARDO drain. Gricelda wound vac removed from mid-line incision (per Dr. Bartholomew), remains well approximated with no drainage noted. PICC line remains patent and intact, infusing without difficulty. Voiding using urinal in bed, although only approx 575ml output this shift. Call light in reach, makes needs known. Will continue to monitor until report to NOC shift RN.
--- NOTE | 2021-02-10 19:00 | NUR ---
ASSUMED CARE NOTE: ASSUMED CARE OF PT AT 1900, RECEVIED REPORT FROM ERROL FONTENOT. PT IS SLEEPING, AWAKENS TO VERBAL STIMULI. PT IS ORIENTED TO SELF, PLACE, EVENT AND ABLE TO FOLLOW COMMANDS. PT IS ABLE TO COMMUNICATE NEEDS EFFECTIVLEY. PT ON 2L OF O2 VIA NC, WITH SPO2 ABOVE 90% NO RESP DISTRESS NOTED. PT IN SINUS RYTHYM TO SINUS TACH WITH PAC'S AND PVC'S HR BETWEEN 90-110. SOFT BP NOTED, MAP REMAIN ABOVE 65. PT HAS AN OGT TO LIS, MINIMAL OUTPUT NOTED. MIDLINE INCISION IS FREE FROM REDNESS, BLEEDING, OR DRAIINGE AROUND STABLES.TEGADREM DRESSING COVERING INCISION. PERC DRAIN LOCATED ON THE RIGHT SIDE OF MIDLINE INCISION. PERC DRAIN TO URESIL COLLECTION BAG, DARK BROWN DRAINAGE NOTED. RICCARDO DRAIN TO LOWER ABDOMEN NOTED, SEROUS FLUID NOTED, DRESSING TO INSERTION SITE IS CLEAN AND DRY. SEE SHIFT ASSESSMENT. PT DENIES ANY PAINN AT THIS TIME. PT USING URINAL AT BEDSIDE. WILL CONTINUE TO MONITOR PT T/O SHIFT.
--- NOTE | 2021-02-11 03:40 | NUR ---
UPDATE: RICCARDO DRESSING CHANGED. SEROUS FLUID NOTED IN COLLECTION BULB, THICK STRINGY PURULENT DRAINAGE NOTED IN TUBE AND AROUND INSERTION SITE. PT HAS BEEN C/O PAIN TO ABD, PAIN MEDS GIVEN PER EMAR.
[2021-02-11 04:48] LABS: Hemoglobin 11.9 g/dL (13.5-17.5); Mean Corpuscular HGB 31.3 pg (26.0-34.0); Mean Corpuscular HGB Conc 33.1 g/dL (31.5-36.5); Mean Corpuscular Volume 95 fL (80-100); Mean Platelet Volume 10.5 fL (9.1-12.4); NRBC ABSOLUTE 0.02 K/mm3 (0.00-0.02); NRBC Auto 0.1 /100 WBC (0.0-0.2); Platelet Count 484 K/mm3 (150-400); RDW Coefficient Variation 13.8 % (11.7-14.2); White Blood Cell Count 29.95 K/mm3 (4.00-11.30)
[2021-02-11 05:07] LABS: Alanine Aminotransfer (ALT/SGP 10 U/L (12-78); Albumin/Globulin Ratio 0.3 (0.8-1.8); Alk Phos 65 U/L (50-136); Anion Gap 5 mmol/L (6-16); Aspartate Aminotrans (AST/SGOT 17 U/L (12-37); Bilirubin, Total 0.6 mg/dL (0.1-1.0); Blood Urea Nitrogen 37 mg/dL (8-24); Bun/Creatinine Ratio 49.3 (12.0-20.0); CO2, Blood 28 mmol/L (21-32); Calcium, Blood 7.6 mg/dL (8.5-10.1); Chloride, Blood 113 mmol/L (98-108); Creatinine, Blood 0.75 mg/dL (0.60-1.20); Globulin, Blood 3.4 g/dL (2.2-4.0); Glomerular Filtration Rate >60 (60-); Glucose, Blood 158 mg/dL (70-99); Potassium, Blood 3.9 mmol/L (3.5-5.5); Sodium, Blood 146 mmol/L (136-145); Total Protein, Blood 4.4 g/dL (6.4-8.2)
[2021-02-11 05:30] LABS: BAND PERCENT MAN 6 % (0-8); BASOPHILS PERCENT MAN 0 % (0-2); EOSINOPHILS PERCENT MAN 0 % (0-6); LYMPHOCYTES ABSOLUTE MAN 3.29 K/mm3 (0.84-5.20); LYMPHOCYTES PERCENT MAN 11 % (21-46); MONOCYTES ABSOLUTE MAN 0.89 K/mm3 (0.16-1.47); MONOCYTES PERCENT MAN 3 % (4-13); NEUTROPHILS ABSOLUTE MAN 25.75 K/mm3 (1.96-9.15); SEG NEUTROPHILS PERCENT MAN 80 % (41-73); TOTAL CELLS COUNTED 100
--- NOTE | 2021-02-11 05:38 | NUR ---
SHIFT SUMMARY: NO SIGNIFICANT CHANGES. PT CONTINUES TO BE ALERT AND ORIENTEDX3. PT HAS BEEN ON 2L OF 02 VIA NC WHILE SLEEPING TO MAINTAIN SPO2 ABOVE 90% PT HAS BEEN HAVING FREQUENT PVC'S AND PAC'S T/O SHIFT, HR BETWEEN 90-110. SP HAS BEEN STABLE. NO CHANGES TO MIDLINE INCISION, KJ INTACT. PERC DRAIN IS DRAINING DARK BROWN/GREEN DRAINAGE. RICCARDO DRAINING PURULET/SEROUS DRAINAGE. RICCARDO DRESSING CHANGED TWICE THIS SHIFT. PT HAS BEEN USING URINAL T/O SHIFT, DRAK TEA COLORED URINE NOTED. PT HAS BEEN USING BEDPAN, MUCOUSY BROWN STOOL NOTED, PT HAS BEEN INCONT OF STOOL AT TIMES. PT HAS BEEN RECEVING HYDROMORPHONE PER EMAR FOR PAIN. PT GIVEN PILLOW TO HOLD WITH REPOSITIONING TO LESSEN STRAIN TO ABDOMEN. C-COLLAR STILL IN PLACE. WILL CONTINUE TO MONITOR PT UNTIL REPORT IS GIVEN TO ONCOMING SHIFT.
--- NOTE | 2021-02-11 08:05 | NUR ---
AM NOTE... ASSUMED CARE OF PT AT 0700. PT IS A&Ox4. PT IS S/P EX LAP WITH MIDLINE INCISION SECURED WITH KJ, PT HAS A RICCARDO DRAIN TO THE RLQ AND PERC DRAIN TO THE MID/LEFT QUADRANT. RICCARDO DRAIN HAS CLEAR YELLOW FLUID WITH SOME WHITE CREAMY SEDIMENT/CHUNKS. PERC DRAIN HAS GREENISH/BROWN LIQUID NOTED WITH THE URISIL DRAIN. ABD HAS MODERATE DISTENTION, FIRM AND TENDER TO PALP. BT VERY HYPOACTIVE. PT IS IN SR W/PACs AND PVCs IN THE 80'S-100'S PT'S BP STABLE WITH MAPS >65. PT HAS 1+-2+ EDEMA TO HIS BUE, BILAT KNEES AND BLE. PT IS ABLE TO VOID IN A URINAL WITH MIN ASSIST. PT HAS NG TUBE SET TO INT LOW SUCTION. PT HAS CPN RUNNING PER ORDERS INTO THE PICC LINE IN THE CLARITA. PT IS ON RA AT THIS TIME L/S CLEAR AND DIM T/O. NECK BRACE IS IN PLACE AND IS TO STAY UNTIL February PER THE PT. CALL LIGHT IN REACH WILL CONTINUE TO MONITOR.
--- NOTE | 2021-02-11 11:23 | NUR ---
PT UPDATE... AT APROX 0900 DR[address] BROOKS AT THE BEDSIDE TO ASSESS THE PT. THE INT SUCTION THE PT'S NG TUBE WAS CONNECTED TO WAS NOT WORKING, DR. BROOKS SWITCHED THE SUCTION HEAD TO CONT AND APROX 100MLS OF CLEAR FLUID WITH A PINK/YELLOW TING CAME OUT. THIS HAPPENED THE PT'S ABD BECAME LESS FIRM THE FLUID WAS REMOVED VIA THE NG TUBE. PT WAS C/O OF A 5/10 PAIN, HOWEVER THE PT NEVER SAYS ANYTHING HIGHER THAN A 5/10 WHEN HIS PAIN IS ASSESSED. PT WAS ABLE TO USE THE BED WHITLEY AND HAD A MED BROWN LOOSE MUCOUSY STOOL. PT ALSO USED THE URINAL AND VOIDED 175MLS OF CLEAR DARK YELLOW URINE. A NEW SUCTION HEAD WAS OBTAINED AND VERIFIED THAT THE INT SUCTION DOES INDEED WORK. AT 1110 THIS RN WAS DOING HOURLY ROUNDING, PT WAS AWAKE AND SEEMED MORE PALE THAN HE HAD BEFORE, PT'S BP 134/54 HR IN THE 90'S-110'S. PT C/O OF 10/10 PAIN "ALL OVER BUT MORE IN MY ABDOMEN." WHEN ASKED ABOUT THE PAIN THE PT SAID "ITS WORSE THAN BEFORE AND A LITTLE DIFFERENT." PT THEN STARTED TO MAKE COMMENTS ABOUT BEING IN ROOM 13 AND 13 BEING "AN UNLUCKY NUMBER." PT ALSO WAS MAKING COMMENTS ABOUT BEING READY TO "GIVE UP." PT'S DRAINS WERE QUICKLY ASSESSED TO ENSURE THEY WERE NOT BLOCKED OR KINKED IN ANYWAY, PT'S ABD IS MORE FRIM AND PAINFUL TO PALP THAN IT WAS AFTER DR. BROOKS HAD LEFT. THE INT SUCTION IS RUNNING WELL TO THE NG TUBE. A BLADDER SCAN WAS DONE AND FOUND 274MLS OF URINE. PT WAS MEDICATED PER EMAR WHICH HAS PACO HIS PAIN FROM A 10/10 TO AN 8/10. PALLIATIVE CARE RN JAME AT THE BEDSIDE TO VISIT WITH THE PT. WILL CONTINUE TO MONITOR.
--- NOTE | 2021-02-11 11:30 | NUR ---
[facility] Care Visit - RN and chargeback specialist in room with pt, assessing bladder fullness by ultrasound due to pt's report of increased abdominal pain. Pt alert, oriented, appears anxious and painful. Pt had approx 264ml urine noted by bladderscan. Pt verbalized feeling scared and worried about his current condition. He states his head feels "fuzzy". I asked if he had a proxy medical decision maker if needed. He states Laurence Alford, friend and Caregiver, would be his proxy decision maker. He states he was in phone contact with her earlier this am and RN states she called nurses for an update also. Pt was stressed about Laurence being able to reach the [place] Pt advocate to get an advanced directive done. I offered to assist him with that while he is here. Pt states he needs to do one thru the [place] for his burial expenses to be paid for. I am unsure if this is correct but pt is distressed about it. I asked Grant, what he was most afraid of and we discussed his wishes for life sustaining treatment also. He states, "I'm not ready to go yet. I thought I was but I'm not". He reports that he wants FULL Code status at this time. I educated on benefits vs burdens of CPR. Pt was processing information and I offered to come back if he would like to talk about it further or with his friend, Laurence, when she came to visit. Updated RN on my visit. Friend/proxy of pt, Laurence's # is [phone].
--- NOTE | 2021-02-11 18:00 | NUR ---
SHIFT SUMMARY.... NO ACUTE NEGATIVE CHANGES SINCE PREVIOUS NOTES. PT'S VS HAVE BEEN STABLE T/O SHIFT. PT'S BP HAS BEEN ON THE SOFT SIDE BUT MAPS >60. PT HAS BEEN MEDICATED FOR PAIN AND ANXIETY PER EMAR. CLEAR YELLOW FLUID WITH SOLID WHITE SEDIMENT. PT'S URISIL DRAIN HAS EMPTIED APROX 400MLS OF THICK BROWNISH/YELLOW FLUID. PT HAS BEEN USING THE URINAL TO VOID SMALL AMOUNTS OF URINE T/O THE SHIFT, PT WAS BLADDER SCANNED AND FOUND TO HAVE 357MLS OF URINE, DR. CHU NOTIFIED, ORDERS FOR BLADDER SCAN AND STRAIGHT CATH Q4 IF >400MLS IS FOUND. PT HAD ONE MED BM THIS SHIFT USING THE BED WHITLEY. NG TUBE IS SET TO LIGHT INT SUCTION, 450MLS OF CLEAR/PINKISH/YELLOWISH FLUID WITH SOME DARK YELLOW/BROWN SEDIMENT WAS NOTED. PT HAS TPN RUNNING AT 72MLS/HR AND LR RUNNING AT 100MLS/HR. PT'S FRIEND WAS AT THE BEDSIDE THIS AFTERNOON FOR APROX 1 HOUR VISITING. CALL LIGHT IN REACH, WILL CONTINUE TO MONITOR UNTIL REPORT IS GIVEN TO ONCOMING RN.
--- NOTE | 2021-02-11 21:07 | NUR ---
SHIFT ASSESSMENT ASSUMED CARE OF PT @ 1900, REPORT FROM CORIE MIMS. PT ALERT AND ORIENTED X 4, RESTING QUIETLY IN BED. APPEARS FAIRLY COMFORTABLE BUT GRIMACES WITH SMALL MOVEMENT OF ARMS, ESPECIALLY WHEN MOVING ARMS OFF THE PILLOWS ON ABDOMEN, WILL MEDICATE WITH PRN PAIN MEDS. C-COLLARY IN PLACE. PICC LINE FLUSHES EASILY, SITE C/D/I. PT IS POST OP EX LAP c INCISION TO MIDLINE ABDOMEN, INCISION C/D/I WITH KJ SECURELY IN PLACE. ABDOMEN FIRM AND DISTENDED. RICCARDO DRAIN TO R LOWER ABD QUADRANT AND PERC DRAIN TO MID LEFT QUADRANT. RICCARDO DRAIN c CLEAR/ YELLOW FLUID, PERC DRAINING DARK GREENISH LIQUID IN THE URESIL. VOIDING WITH THE USE OF THE URINAL IN BED WITHOUT ISSUE CURRENTLY. PT USING BED WHITLEY FOR BM'S, ABLE TO NOTIFY NURSE. CALL LIGHT WITHIN REACH, WILL CONTINUE TO MONITOR.
[2021-02-12 03:38] LABS: Hematocrit 31.5 % (37.0-53.0); Hemoglobin 10.4 g/dL (13.5-17.5); Mean Corpuscular HGB 31.5 pg (26.0-34.0); Mean Corpuscular Volume 96 fL (80-100); NRBC ABSOLUTE 0.02 K/mm3 (0.00-0.02); NRBC Auto 0.1 /100 WBC (0.0-0.2); Platelet Count 564 K/mm3 (150-400); RDW Coefficient Variation 13.7 % (11.7-14.2); RDW Standard Deviation 48.5 fL (35.1-46.3); White Blood Cell Count 29.87 K/mm3 (4.00-11.30)
[2021-02-12 03:57] LABS: BAND PERCENT MAN 8 % (0-8); BASOPHILS PERCENT MAN 0 % (0-2); EOSINOPHILS PERCENT MAN 0 % (0-6); LYMPHOCYTES ABSOLUTE MAN 0.59 K/mm3 (0.84-5.20); LYMPHOCYTES PERCENT MAN 2 % (21-46); METAMYELOCYTE ABSOLUTE MAN 0.29 K/mm3 (0.00-0.00); METAMYELOCYTE PERCENT MAN 1 % (0-0); MONOCYTES ABSOLUTE MAN 0.59 K/mm3 (0.16-1.47); MONOCYTES PERCENT MAN 2 % (4-13); NEUTROPHILS ABSOLUTE MAN 28.37 K/mm3 (1.96-9.15); SEG NEUTROPHILS PERCENT MAN 87 % (41-73); TOTAL CELLS COUNTED 100
--- NOTE | 2021-02-12 06:41 | NUR ---
SHIFT SUMMARY PT REMAINS A&OX4, STATES HE FEELS A BIT STRONGER, BUT STILL VERY WEAK WHEN TURNING AND ASSISTING WITH BEDPAN. PT VERY PAINFUL WITH ANY MOVEMENT, MEDICATED c PRN PAIN MEDS. PT HAD NO ISSUES URINATING DURING THE NIGHT, UTILIZING URINAL WITH MINIMAL ASSISTANCE. ONE LOOSE BM DURING THE NIGHT. NO CHANGES IN THE INTEGRITY OF THE MIDLINE INCISION, REMAINS C/D/I. RICCARDO DRAINING YELLOWISH FLUID. PERC CONTINUES TO DRAIN GREEN/ DARK FLUID. VSS REMAIN STABLE. NO OTHER CHANGES IN PT CONDITION DURING THE NIGHT, WILL CONTINUE TO MONITOR. CALL LIGHT WITHIN REACH.
--- NOTE | 2021-02-12 08:10 | NUR ---
INITIAL ASSESSMENT PATIENT ALERT AND ORIENTED X 4, AFEBRILE. PATIENT PLEASANT AND COOPERATIVE. PATIENT IN C-COLLAR FROM RECENT NECK INJURY. PATIENT STATES THAT HE HAS BEENF FALLING AT HOME. PATIENT WEAK BUT ABLE TO MOVE ALL EXTREMITIES. PATIENT VERY PAINFUL IN STOMACH WITH REPOSITIONING; PRN PAIN MEDICATIONS BEING GIVEN BEFORE TURNS. PATIENT SATTING 90% AND GREATER ON 2 L NC. PATIENT ON RA AT HOME. SHALLOW BREATHS NOTED. PATIENT STATES HE HAS OCCASIONAL COUGH AND DOES COUGH UP SMALL AMOUNTS OF PHLEGM BUT THAT HE DOES SWALLOW IT. LUNGS CLEAR IN UPPER LOBES, DIMINISHED IN R LOWER LOBE AND HAS RUB NOTED IN L LOWER LUNG LOBE. PATIENT IN SR TO ST, WITH PACS AND PVCS. HR 90S TO LOW 100S. SBP 90S TO 1-TEENS. ABDOMEN MODERATELY DISTENDED AND FIRM. ALL QUADRANTS HYPOACTIVE EXCEPT L LOWER LOBE THAT IS HYPERACTIVE. NG TO LIS. PATIENT TOLERATING ICE CHIPS WELL. 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 PATIENT VOIDING DARK YELLOW COLORED URINE. PATIENT DOES HAVE PROBLEMS WITH RETENTION. BLADDER SCANS Q4H. SCAN SHOWED 308 MLS OF URINE IN BLADDER AFTER AM VOID. ORDER TO STRAIGHT CATH IF OVER 400 MLS OF URINE IN BLADDER. PATIENT IS BEING ASSISTED WITH USE OF URINAL. MIDLINE INCISION WITH KJ NOTED. TEGADERM IN PLACE. PER DRAIN FROM INCISION NOTED TO URISEAL COLLECTION BAG; DRAINAGE GREEN IN COLOR. RICCARDO DRAIN TO R ABDOMEN- DRAINAGE SEROUS IN COLOR. SCATTERED BRUISING NOTED. BODY OF PENIS BEHIND GLANS IS EDEMATOUS. NS TKO, LR AT 100 MLS/ HOUR, TPN AT 72 MLS/ HOUR. PATIENT HAS BEEN RECEIVING VANCO, ZOSYN AND DIFLUCAN SCHEDULED. BED LOW, CALL LIGHT IN REACH. WILL CONTINUE TO MONITOR PATIENT FREQUENTLY THROUGHOUT SHIFT.
[2021-02-12 09:33] LABS: Vancomycin, Trough 8.9 ug/mL (5.0-10.0)
--- NOTE | 2021-02-12 10:33 | NUR ---
Pt affect is a little brighter, we reviewed his needs and symptoms. He denies headache, no fdifficulty swallowing, he dienes ringing in his ears or dizziness, His neck and shoulders are sore and he has deep pressures in pain in abdomen some cramping. HE is rigid and guarding his torso. Review of medication with nursing, hopitalist and suregeon. Plan is to start him aon a fentanly patch and start reducing his iv pain meds. Will start with a lower judicious dose due to his BMI and work our way up. Pt feels urge to have a BM today. Doctor Dudley spoke with pt about time for his GI system to settle and loosen and then they will consider going back in. Asked pt if he want to rehab here in [place] or would consider going to [facility] services. He woudl go but prefers to stay here in [place]. [facility] and ask they fax a copy of their advance directive and we will help him fill it out and have a notary witness it and get into his [facility] chart. Pt pps score is score is 20%. Pt have more hope for survival so converstion today was supportive. Told him today that out team will help him plan his future care and help him with his stress and fear over possibly not surviving this event versus another major surgery. Will have the chaplian speak with him about some resolution in his life with his family. it
--- NOTE | 2021-02-12 10:47 | NUR ---
DR. BROOKS AND DR. WHITNEY UPDATED ON PATIENT STATUS. DR. BROOKS STATED OKAY TO RESUME LOVENOX. ORDERS RECEIVED.
--- NOTE | 2021-02-12 12:56 | NUR ---
SHIFT SUMMARY PATIENT REMAINED ALERT AND ORIENTED X 4, AFEBRILE. PATIENT GIVEN PRN FENTANYL AND DILAUDID TO HELP WITH STOMACH PAIN. FENTANYL PATCH STARTED THIS SHIFT. RUB REMAINS TO LEFT LOWER LOBE. PATIENT DECREASED FROM 2 L NC TO 1 L NC. PATIENT HAS REMAINED SR TO ST, HR 80S TO LOW 100S. SBP 90S TO 140S. NG TO LIS- 100 MLS OF CLEAR LIQUID OUT. AMOUNT OF ICE CUBES PATIENT ALLOWED HAS DECREASED PER DR. BROOKS. ABDOMEN REMAINS MODERATELY DISTENDED, FIRM, WITH HYPERACTIVE BS THROUGHOUT. BLADDER SCAN SHOWED 308 AND 280 MLS OF URINE IN BLADDER AFTER VOIDS. PATIENT REMAINS USING URINAL WELL WITH ASSISTANCE. NO CHANGE IN SKIN. RICCARDO DRAINED DRAINING SCANT AMOUNT OF SEROUS FLUID. UROSEAL DRAINED 180 MLS OF DARK GREEN DRAINAGE. PATIENT REPOSITIONED Q2H. ABD XR PERFORMED THIS SHIFT. PATIENT TO TRANSFER TO SURGICAL FLOOR SHORTLY.
--- NOTE | 2021-02-12 13:10 | NUR ---
PATIENT TRANSFERRED TO SURGICAL FLOOR. ALL BELONGINGS SENT WITH PATIENT.
--- NOTE | 2021-02-12 13:34 | NUR ---
TRANSFER PT TRANSFERED TO UNIT FROM ICU AT APROX 1300. REPORT RECIEVED FROM ARTHUR FONTENOT.
--- NOTE | 2021-02-12 18:04 | NUR ---
SHIFT SUMMARY SINCE TX TO UNIT PT UP TO BSC 2 PERSON MOD ASSIST WITH GAIT BELT AND THEN SAT UP IN CHAIR FOR APROX 1 HR, TOLERATED FAIRLY WELL. CPN AND LR TO PICC LINE PER EMAR. PERCUTANEOUS DRAIN WITH MOD AMT BROWN/GREEN DRAINAGE. RICCARDO WITH SMALL AMT SS DRAINAGE. NG TUBE TO LIS SINCE ARRIVAL TO UNIT WITH NO GASTRIC OUTPUT. PT C/O ABD PAIN ONCE, MEDICATED WITH DILAUDID. PLAN TO CONTINUE IV ABX.
--- NOTE | 2021-02-12 23:36 | NUR ---
PT GIVES PERMISSION TO PARTICIPATE IN CARE
--- NOTE | 2021-02-13 04:49 | NUR ---
SHIFT SUMMARY: TRANSFER FROM ICU, TELE SINUS 97-112 W/ PAC AND PVC,PT CSPINE IN PLACE,HUMMID O2 @2LNC AND HAS NG TO LIS,HAS UROSEAL MIDLINE W/ DARK GREEN DRAINAGE T/O THE SHIFT, MIDLINE RICCARDO WITH CLEAR YELLOW DRAINAGE, DRESSINGSX3 C/D/I TO MID UMBILICUS WITH KJ, PT HAS APPRESOLINE AVAILABLE FOR HTN, PAIN MANAGED W/ MEDICATONS, PT HAS BSC BUT WAS INC.OF STOOLX1, APPEARS TO BE RESTING CALL LIGHT WITHIN REACH.
[2021-02-13 05:38] LABS: BASOPHILS ABSOLUTE AUTO 0.09 K/mm3 (0.00-0.23); BASOPHILS PERCENT AUTO 0 % (0-2); EOSINOPHILS ABSOLUTE AUTO 0.12 K/mm3 (0.00-0.68); EOSINOPHILS PERCENT AUTO 0 % (0-6); Hematocrit 30.8 % (37.0-53.0); Hemoglobin 10.3 g/dL (13.5-17.5); IMMATURE GRAN ABSOLUTE AUTO 1.03 K/mm3 (0.00-0.10); IMMATURE GRAN PERCENT AUTO 4 % (0-1); LYMPHOCYTES ABSOLUTE AUTO 1.25 K/mm3 (0.84-5.20); LYMPHOCYTES PERCENT AUTO 5 % (21-46); MONOCYTES ABSOLUTE AUTO 1.11 K/mm3 (0.16-1.47); MONOCYTES PERCENT AUTO 4 % (4-13); Mean Corpuscular HGB 31.9 pg (26.0-34.0); Mean Corpuscular HGB Conc 33.4 g/dL (31.5-36.5); Mean Corpuscular Volume 95 fL (80-100); Mean Platelet Volume 9.8 fL (9.1-12.4); NEUTROPHILS ABSOLUTE AUTO 23.96 K/mm3 (1.96-9.15); NEUTROPHILS PERCENT AUTO 87 % (41-73); NRBC ABSOLUTE 0.02 K/mm3 (0.00-0.02); NRBC Auto 0.1 /100 WBC (0.0-0.2); Platelet Count 609 K/mm3 (150-400); RDW Coefficient Variation 13.6 % (11.7-14.2); RDW Standard Deviation 47.7 fL (35.1-46.3); Red Blood Cell Count 3.23 M/mm3 (4.30-5.90); White Blood Cell Count 27.56 K/mm3 (4.00-11.30)
[2021-02-13 06:05] LABS: Alanine Aminotransfer (ALT/SGP 13 U/L (12-78); Albumin, Blood 1.1 g/dL (3.4-5.0); Albumin/Globulin Ratio 0.3 (0.8-1.8); Alk Phos 82 U/L (50-136); Anion Gap 6 mmol/L (6-16); Aspartate Aminotrans (AST/SGOT 20 U/L (12-37); Bilirubin, Total 0.8 mg/dL (0.1-1.0); Blood Urea Nitrogen 22 mg/dL (8-24); Bun/Creatinine Ratio 33.9 (12.0-20.0); CO2, Blood 27 mmol/L (21-32); Chloride, Blood 111 mmol/L (98-108); Creatinine, Blood 0.65 mg/dL (0.60-1.20); Globulin, Blood 3.9 g/dL (2.2-4.0); Glomerular Filtration Rate >60 (60-); Glucose, Blood 138 mg/dL (70-99); Potassium, Blood 3.4 mmol/L (3.5-5.5); Sodium, Blood 144 mmol/L (136-145)
--- NOTE | 2021-02-13 15:21 | NUR ---
contacted [place] palliative care team. INformation obtained on burial benefits will help pt sign up. He is a little distraught today on his progress and feearful. Theraputic time with patient. Will see if he can go to the [facility] for care.
--- NOTE | 2021-02-13 18:15 | NUR ---
SHIFT SUMMARY PT SAT UP IN CHAIR FOR > 1 HR. NGT APPEARS TO ONLY HAVE THE ICE CHIPS HE ATE. URESEL DRAIN SLOWED ON OUTPUT & HAVING LOOSE JELLY, GREEN BM's. IV LASIX DECREASED SWELLING. PT PLEASANT & COOPERATIVE.
[2021-02-14 04:15] LABS: BASOPHILS ABSOLUTE AUTO 0.08 K/mm3 (0.00-0.23); BASOPHILS PERCENT AUTO 0 % (0-2); EOSINOPHILS ABSOLUTE AUTO 0.09 K/mm3 (0.00-0.68); EOSINOPHILS PERCENT AUTO 0 % (0-6); Hematocrit 29.7 % (37.0-53.0); Hemoglobin 9.9 g/dL (13.5-17.5); IMMATURE GRAN ABSOLUTE AUTO 1.02 K/mm3 (0.00-0.10); IMMATURE GRAN PERCENT AUTO 4 % (0-1); LYMPHOCYTES ABSOLUTE AUTO 1.15 K/mm3 (0.84-5.20); LYMPHOCYTES PERCENT AUTO 5 % (21-46); MONOCYTES ABSOLUTE AUTO 0.93 K/mm3 (0.16-1.47); MONOCYTES PERCENT AUTO 4 % (4-13); Mean Corpuscular HGB 31.4 pg (26.0-34.0); Mean Corpuscular HGB Conc 33.3 g/dL (31.5-36.5); Mean Corpuscular Volume 94 fL (80-100); Mean Platelet Volume 9.9 fL (9.1-12.4); NEUTROPHILS ABSOLUTE AUTO 21.67 K/mm3 (1.96-9.15); NEUTROPHILS PERCENT AUTO 87 % (41-73); Platelet Count 637 K/mm3 (150-400); RDW Coefficient Variation 13.5 % (11.7-14.2); RDW Standard Deviation 46.7 fL (35.1-46.3); Red Blood Cell Count 3.15 M/mm3 (4.30-5.90); White Blood Cell Count 24.94 K/mm3 (4.00-11.30)
[2021-02-14 04:34] LABS: BAND PERCENT MAN 1 % (0-8); BASOPHILS PERCENT MAN 0 % (0-2); EOSINOPHILS PERCENT MAN 0 % (0-6); LYMPHOCYTES ABSOLUTE MAN 1.24 K/mm3 (0.84-5.20); LYMPHOCYTES PERCENT MAN 5 % (21-46); METAMYELOCYTE ABSOLUTE MAN 0.24 K/mm3 (0.00-0.00); METAMYELOCYTE PERCENT MAN 1 % (0-0); MONOCYTES ABSOLUTE MAN 0.24 K/mm3 (0.16-1.47); MONOCYTES PERCENT MAN 1 % (4-13); MYELOCYTE ABSOLUTE MAN 0.24 K/mm3 (0.00-0.00); MYELOCYTE PERCENT MAN 1 % (0-0); NEUTROPHILS ABSOLUTE MAN 22.69 K/mm3 (1.96-9.15); PROMYELOCYTE ABSOLUTE MAN 0.24 K/mm3 (0.00-0.00); PROMYELOCYTE PERCENT MAN 1 % (0-0); SEG NEUTROPHILS PERCENT MAN 90 % (41-73); TOTAL CELLS COUNTED 100
[2021-02-14 04:36] LABS: Alanine Aminotransfer (ALT/SGP 15 U/L (12-78); Albumin, Blood 1.3 g/dL (3.4-5.0); Albumin/Globulin Ratio 0.3 (0.8-1.8); Alk Phos 86 U/L (50-136); Anion Gap 6 mmol/L (6-16); Aspartate Aminotrans (AST/SGOT 21 U/L (12-37); Bilirubin, Total 1.1 mg/dL (0.1-1.0); Blood Urea Nitrogen 18 mg/dL (8-24); CO2, Blood 29 mmol/L (21-32); Calcium, Blood 8.1 mg/dL (8.5-10.1); Chloride, Blood 111 mmol/L (98-108); Globulin, Blood 4.1 g/dL (2.2-4.0); Glomerular Filtration Rate >60 (60-); Glucose, Blood 153 mg/dL (70-99); Magnesium, Blood 2.1 mg/dL (1.6-2.4); Phosphorus, Blood 3.4 mg/dL (2.5-4.9); Sodium, Blood 146 mmol/L (136-145); Total Protein, Blood 5.4 g/dL (6.4-8.2); Triglycerides 186 mg/dL (30-160)
--- NOTE | 2021-02-14 06:02 | NUR ---
SHIFT SUMMARY POD13 EXLAP W/ MANUEL PATCH OVER DUODENAL ULCER, A/O X4, VSS, TOLERATING ICE CHIPS, NG SET TO LIS, REPORTS PAIN TOLERABLE T/O SHIFT, DENIES NEED FOR PAIN MEDS, URESIL AND RICCARDO DRAINS ARE PATENT, VOIDING IN URINAL, MULTIPLE LOOSE BM THIS SHIFT. NO ACUTE EVENTS THIS SHIFT. CALL LIGHT IN REACH, WILL CONTINUE TO MONITOR AND REPORT TO ONCOMING DAY RN.
--- NOTE | 2021-02-14 18:34 | NUR ---
SHIFT SUMMARY PT HAS BEEN MORE DEPRESSED TODAY. WAS ONLY ABLE TO STAND TWICE W/ OT. BOTH DRAIN OUTPUTS HAVE CONTINUED TO DECREASE.
--- NOTE | 2021-02-15 02:00 | NUR ---
PT DESATURATING AT 46% W/ HIS CONTINOUS BIOX FOR APPROXIMATELY 20-30 SECS AND OXIMIZER ON 2L. APPEARS CALM AND COMFORTABLE SLEEPING IN BED. PT AWAKEN, ENC TO TAKE DEEP BREATHES, OXIMIZER INCRESED TO 4L 02, SAT PATIENT IN BED. PT'S SATURATION IMPROVED TO 99%. STILL COMFORTABLE SLEEPING IN BED. WILL CONTINUE TO MONITOR FOR ANY CHANGES. CALL LIGHT W/IN REACH.
--- NOTE | 2021-02-15 03:36 | NUR ---
SHIFT SUMMARY POD14 EXPLAP W/ MANUEL PATCH R/T DUODENAL ULCER. AOX4. TOLERATING ICE CHIPS, DENIES N/V. NG TUBE INTACT W/ LOW INT SUCTIONING. WITH 50 CLEAR OUTPUT.PT DENIES PAIN. HE HAD 1 LIQ BOWEL MOV'T LAST NIGHT. URESIL WITH AN OUTPUT OF 120ML, GREEN BILE LIQ. AND RICCARDO DRAIN ON RIGHT ABD OUTPUT OF 10ML, LIGHT YELLOW. NO ACUTE CHANGES OVERNIGHT. PT SLEPT GOOD T/O SHIFT. VSS, PT ON 3L 02 N/C. DENIES CP AND SOB. PT ALSO USES URINAL, DENIES DIFFICULTY/ISSUES IN VOIDING. CALL LIGHT W/IN REACH. WILL PROVIDE REPORT TO ONCOMING NURSE.
[2021-02-15 04:52] LABS: BASOPHILS ABSOLUTE AUTO 0.05 K/mm3 (0.00-0.23); BASOPHILS PERCENT AUTO 0 % (0-2); EOSINOPHILS ABSOLUTE AUTO 0.14 K/mm3 (0.00-0.68); EOSINOPHILS PERCENT AUTO 1 % (0-6); Hematocrit 29.5 % (37.0-53.0); Hemoglobin 9.7 g/dL (13.5-17.5); IMMATURE GRAN ABSOLUTE AUTO 0.88 K/mm3 (0.00-0.10); IMMATURE GRAN PERCENT AUTO 4 % (0-1); LYMPHOCYTES ABSOLUTE AUTO 1.04 K/mm3 (0.84-5.20); LYMPHOCYTES PERCENT AUTO 5 % (21-46); MONOCYTES ABSOLUTE AUTO 0.85 K/mm3 (0.16-1.47); MONOCYTES PERCENT AUTO 4 % (4-13); Mean Corpuscular HGB 30.9 pg (26.0-34.0); Mean Corpuscular HGB Conc 32.9 g/dL (31.5-36.5); Mean Corpuscular Volume 94 fL (80-100); Mean Platelet Volume 9.7 fL (9.1-12.4); NEUTROPHILS PERCENT AUTO 87 % (41-73); NRBC ABSOLUTE 0.02 K/mm3 (0.00-0.02); NRBC Auto 0.1 /100 WBC (0.0-0.2); Platelet Count 617 K/mm3 (150-400); RDW Coefficient Variation 13.8 % (11.7-14.2); Red Blood Cell Count 3.14 M/mm3 (4.30-5.90); White Blood Cell Count 22.76 K/mm3 (4.00-11.30)
[2021-02-15 05:12] LABS: Albumin, Blood 1.3 g/dL (3.4-5.0); Anion Gap 6 mmol/L (6-16); Blood Urea Nitrogen 17 mg/dL (8-24); Bun/Creatinine Ratio 31.6 (12.0-20.0); CO2, Blood 29 mmol/L (21-32); Calcium, Blood 8.1 mg/dL (8.5-10.1); Chloride, Blood 107 mmol/L (98-108); Creatinine, Blood 0.54 mg/dL (0.60-1.20); Glomerular Filtration Rate >60 (60-); Glucose, Blood 142 mg/dL (70-99); Phosphorus, Blood 3.7 mg/dL (2.5-4.9); Sodium, Blood 142 mmol/L (136-145)
--- NOTE | 2021-02-15 07:44 | NUR ---
repositioned pt he req more ice chips stated that he has some tenderness to the abd but other hernandez ok dist no flatus except when having loose stool pt has scant drainage to alexis drain light yellow poss removal today per pt uracel drain has dk green drainage ngt to low int sx min drainage cl on color
--- NOTE | 2021-02-15 10:45 | NUR ---
pt sitting up in recliner ice chips given pt req his legs be elev
--- NOTE | 2021-02-15 13:37 | NUR ---
s/s at bedside to talk with pt
--- NOTE | 2021-02-15 16:49 | NUR ---
pt resting this morning. Will see if we shoudl start tapering his nicotine patch. Will review his pain and symptoms daily to refine medications.
--- NOTE | 2021-02-15 17:00 | NUR ---
ice chips given per pt req earlier pt had liq bm oob to bsc also voided
--- NOTE | 2021-02-15 18:15 | NUR ---
awaiting dr jarvis will req iv benadryl per pt req to help sleep
[2021-02-16 04:52] LABS: BASOPHILS ABSOLUTE AUTO 0.07 K/mm3 (0.00-0.23); BASOPHILS PERCENT AUTO 0 % (0-2); EOSINOPHILS ABSOLUTE AUTO 0.18 K/mm3 (0.00-0.68); EOSINOPHILS PERCENT AUTO 1 % (0-6); Hematocrit 28.3 % (37.0-53.0); Hemoglobin 9.5 g/dL (13.5-17.5); IMMATURE GRAN ABSOLUTE AUTO 0.84 K/mm3 (0.00-0.10); IMMATURE GRAN PERCENT AUTO 4 % (0-1); LYMPHOCYTES ABSOLUTE AUTO 1.24 K/mm3 (0.84-5.20); LYMPHOCYTES PERCENT AUTO 6 % (21-46); MONOCYTES ABSOLUTE AUTO 0.78 K/mm3 (0.16-1.47); MONOCYTES PERCENT AUTO 4 % (4-13); Mean Corpuscular HGB 31.6 pg (26.0-34.0); Mean Corpuscular HGB Conc 33.6 g/dL (31.5-36.5); Mean Corpuscular Volume 94 fL (80-100); Mean Platelet Volume 9.5 fL (9.1-12.4); NEUTROPHILS ABSOLUTE AUTO 18.01 K/mm3 (1.96-9.15); NEUTROPHILS PERCENT AUTO 85 % (41-73); Platelet Count 550 K/mm3 (150-400); RDW Coefficient Variation 13.6 % (11.7-14.2); RDW Standard Deviation 46.5 fL (35.1-46.3); Red Blood Cell Count 3.01 M/mm3 (4.30-5.90); White Blood Cell Count 21.12 K/mm3 (4.00-11.30)
[2021-02-16 05:07] LABS: Anion Gap 5 mmol/L (6-16); Blood Urea Nitrogen 17 mg/dL (8-24); Bun/Creatinine Ratio 29.9 (12.0-20.0); CO2, Blood 29 mmol/L (21-32); Chloride, Blood 106 mmol/L (98-108); Creatinine, Blood 0.57 mg/dL (0.60-1.20); Glomerular Filtration Rate >60 (60-); Glucose, Blood 102 mg/dL (70-99); Potassium, Blood 3.4 mmol/L (3.5-5.5); Sodium, Blood 140 mmol/L (136-145)
--- NOTE | 2021-02-16 05:12 | NUR ---
SHIFT SUMMARY AOX4. VSS. PT WAS ANXIOUS AT THE BEGINNING OF SHIFT. CONCERN ABOUT NIGHTMARES. PT REPORTS THAT HE DIDN'T GET SLEEP NIGHT AGO. REQUESTING A MEDICATION FOR SLEEP AT NIGHT. TELEPHONE ORDER OBTAINED FROM DR. KESSLER. IV BENADRYL WAS PRESCRIBED. PT REPORTS THAT BENADRYL HAD HELPED WITH HIS SLEEP T/O SHIFT. NG TUBE STILL IN PLACED, IN LOW INT SUCTION. PT ON 3L O2 N/C. DENIES SOB AND CHEST PAIN. URESIL DRAINING AT 250ML T/O SHIFT, WITH GREEN/BILE COLOR. VERY MINIMAL OUTPUT ON RICCARDO DRAIN WITH YELLOW DRAINAGE. PT REPORTS PAIN THIS AM AFTER REPOSITIONING. PAIN MANAGED WITH DILAUDID. HE WAS ALSO ANXIOUS, ATIVAN WAS ADMINISTERED. TPN INFUSING. HE ALSO HAD BM THIS MORNING. PT TOLERATING ICE CHIPS DENIES NAUSEA AND VOMITING. CALL LIGHT WITHIN REACH. WILL PROVIDE REPORT TO AM NURSE.
--- NOTE | 2021-02-16 10:36 | NUR ---
Pt resting in recliner chair upon arrival. Pt recently worked with therapy and reports tiredness. Pt denies pain, dyspnea, and anxiety at this time. Listened as Pt reports continued optimism and hopefulness of recovery. Pt reports no concerns at this time. Spoke with Bedside RN Keyona and discussed case. Keyona reports no concerns at this time. Palliative Care will remain available.
--- NOTE | 2021-02-16 15:58 | NUR ---
NG TUBE CAME OUT OF PT
--- NOTE | 2021-02-16 15:59 | NUR ---
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 DENIES PAIN. NG CAME OUT TODAY; PT PJ ICE CHIPS, DENIES N&V. AMBULATES WITH FWW/SBA, UP IN ROOM, TO BSC, UP TO CHAIR = PT TOLERATES VERY WELL. VOIDING WELL, BMS TODAY. WILL REPORT TO ONCOMING NOC RN.
--- NOTE | 2021-02-17 03:16 | NUR ---
SHIFT SUMMARY: POD 16 EXPLORE LAP PATIENT IS ALERT AND ORIENTED X4 WHILE AWAKE. VS ARE WNL AND IS ON RA. PAIN REPORTS NO PAIN. PATIENT IS TOLERATING PO ICE CHIPS WITH NO NAUSEA AND VOMITING. AMBULATES WITH FWW AND USES A BEDSIDE COMMODE. URICEL IS DRIANING GREEN/BROWN FLUID. PATIENT USES A URNAL AND WILL CALL WHEN NEEDING HELP. PATIENT IS RECIEVING TPN FOR NUTRITION WITH PICC LINE. C-COLLAR BRACE IS IN PLACE. KJ ARE OPEN TO AIR AND ARE DRY/INTACT. CALL LIGHT WITHIN REACH. THE PLAN IS TO HAVE PATIENT AMBULATE MORE WITH PT/OT.
[2021-02-17 04:29] LABS: Hematocrit 27.1 % (37.0-53.0); Mean Corpuscular HGB 30.8 pg (26.0-34.0); Mean Corpuscular HGB Conc 33.2 g/dL (31.5-36.5); Mean Corpuscular Volume 93 fL (80-100); Mean Platelet Volume 9.2 fL (9.1-12.4); Platelet Count 547 K/mm3 (150-400); RDW Coefficient Variation 13.6 % (11.7-14.2); RDW Standard Deviation 46.5 fL (35.1-46.3); Red Blood Cell Count 2.92 M/mm3 (4.30-5.90); White Blood Cell Count 23.35 K/mm3 (4.00-11.30)
[2021-02-17 04:59] LABS: Albumin, Blood 1.4 g/dL (3.4-5.0); Anion Gap 7 mmol/L (6-16); Blood Urea Nitrogen 17 mg/dL (8-24); CO2, Blood 27 mmol/L (21-32); Calcium, Blood 7.9 mg/dL (8.5-10.1); Chloride, Blood 103 mmol/L (98-108); Creatinine, Blood 0.63 mg/dL (0.60-1.20); Glomerular Filtration Rate >60 (60-); Glucose, Blood 104 mg/dL (70-99); Phosphorus, Blood 4.2 mg/dL (2.5-4.9); Potassium, Blood 3.4 mmol/L (3.5-5.5); Sodium, Blood 137 mmol/L (136-145)
--- NOTE | 2021-02-17 13:42 | NUR ---
Pt resting in bed and denies pain at this time. Pt reports feeling fatigued from working with therapy. Pt states being in agreement with plan [facility]. Offered therapeutic listening and validated concerns. Pt expresses appreciation of visit and reports no other concerns at this time. Spoke with Bedside Kaye and discussed case. Palliative Care will remain available.
--- NOTE | 2021-02-17 17:28 | NUR ---
SHIFT SUMMARY PT IS ALERT AND ORIENTEDx4, REPORTS MORE FATIGUE TODAY. MODERATE ABD DISTENTION. UROSIL DRAIN CONTINUES TO PUT OUT GREEN DRAINAGE AND LOTS OF AIR WHERE BAG NEEDS BURPED MULTIPLE TIMES DURING THE DAY. SMALL LOOSE BM TODAY. BOWEL TONES HYPOACTIVE. PT TOLERATING ICE CHIPS. PICC IN PLACE TO LEFT UPPER EXTREMETY, DRESSING CHANGE DONE TODAY. TPN CONTINUES TO INFUSE. PT WORKED WITH PHYSICAL THERAPY WALKING IN ROOM, BUT TIRED QUICKLY AND BECAME DYSPNIC. SPO2 REMAINED >92% ON ROOM AIR. VITALS HAVE REMAINED STABLE.
--- NOTE | 2021-02-18 03:34 | NUR ---
SHIFT SUMMARY: POD 17 PERF BOWEL RELATED TO NSAIDS PATIENT IS ALERT AND ORIENTED X4 WHILE AWAKE. HE HAS BEEN ASLEEP MAJORITY OF THE SHIFT. VS ARE WNL AND IS ON RA. PATIENT DENIES PAIN THROUGHOUT SHIFT THOUGH HAS HAD BENEDRYL AND ATIVAN TO "HAVE BETTER SLEEP AND LESS ANXIETY". URICEL HAS HAD BROWN OUTPUT AND SOMETIMES BURPED. KJ ARE DRY AND INTACT DOWN THE MIDLINE. C-COLLAR IS STILL ON AND IS STABLE. PATIENT IS A SBA TO BEDSIDE COMMODE. HE HAS BEEN VOIDING AND DID HAVE A SMALL BM YESTERDAY DURING DAYSHIFT. HE IS TOLERATING HIS ICE CHIPS. CALLS WHEN NEEDING ASSISTANCE WITH PLACEMENT OF URNAL. CALL LIGHT WITHIN REACH. THE PLAN IS TO CONTINUE PT LATER TODAY.
--- NOTE | 2021-02-18 12:01 | NUR ---
REPORT PASSED TO CORIE SUAREZ
[2021-02-18 13:57] LABS: BASOPHILS ABSOLUTE AUTO 0.05 K/mm3 (0.00-0.23); BASOPHILS PERCENT AUTO 0 % (0-2); EOSINOPHILS ABSOLUTE AUTO 0.06 K/mm3 (0.00-0.68); EOSINOPHILS PERCENT AUTO 0 % (0-6); Hematocrit 24.8 % (37.0-53.0); Hemoglobin 8.3 g/dL (13.5-17.5); IMMATURE GRAN ABSOLUTE AUTO 0.36 K/mm3 (0.00-0.10); IMMATURE GRAN PERCENT AUTO 2 % (0-1); LYMPHOCYTES ABSOLUTE AUTO 1.11 K/mm3 (0.84-5.20); LYMPHOCYTES PERCENT AUTO 5 % (21-46); MONOCYTES ABSOLUTE AUTO 0.74 K/mm3 (0.16-1.47); MONOCYTES PERCENT AUTO 4 % (4-13); Mean Corpuscular HGB Conc 33.5 g/dL (31.5-36.5); Mean Corpuscular Volume 93 fL (80-100); Mean Platelet Volume 9.4 fL (9.1-12.4); NEUTROPHILS ABSOLUTE AUTO 18.85 K/mm3 (1.96-9.15); NEUTROPHILS PERCENT AUTO 89 % (41-73); Platelet Count 451 K/mm3 (150-400); RDW Coefficient Variation 13.4 % (11.7-14.2); RDW Standard Deviation 45.6 fL (35.1-46.3); Red Blood Cell Count 2.68 M/mm3 (4.30-5.90); White Blood Cell Count 21.17 K/mm3 (4.00-11.30)
--- NOTE | 2021-02-18 18:13 | NUR ---
PATIENT HAS BEEN STABLE SINCE THIS RN ASSUMED CARE. PT HAS HAD SOME LOW GRADE FEVERS. ENCOURAGED SPIROMETRY. RESP ELEVATED AT TIMES. PT TACHY. PT WORKED POORLY WITH THERAPY AND IS RELUCTANT TO GET OOB. TURNING EVERY 2 HOURS. PT USING URINAL WITH ASSIST. ALSO HAS SOME URGENCY INCONTINENCE. ATTENDS IN PLACE. PT HAVING SMALL AMTS SMEARED BM. REMAINS NPO EXCEPT FOR ICE CHIPS. NO N/V. CONT TPN. PAIN CONTROLLED WITH FENT PATCH WHICH WAS CHANGED TODAY. LARGE AMT BROWN GREEN DRAINAGE FROM URACIL DRAIN CHARTED. CBC COMPLETED THIS AFTERNOON. PT CALLS APPROPRIATELY FOR HELP NEEDED.
[2021-02-19 04:30] LABS: BASOPHILS ABSOLUTE AUTO 0.03 K/mm3 (0.00-0.23); BASOPHILS PERCENT AUTO 0 % (0-2); EOSINOPHILS ABSOLUTE AUTO 0.12 K/mm3 (0.00-0.68); EOSINOPHILS PERCENT AUTO 1 % (0-6); Hematocrit 24.5 % (37.0-53.0); Hemoglobin 7.9 g/dL (13.5-17.5); IMMATURE GRAN ABSOLUTE AUTO 0.34 K/mm3 (0.00-0.10); IMMATURE GRAN PERCENT AUTO 2 % (0-1); LYMPHOCYTES ABSOLUTE AUTO 1.15 K/mm3 (0.84-5.20); LYMPHOCYTES PERCENT AUTO 6 % (21-46); MONOCYTES ABSOLUTE AUTO 0.69 K/mm3 (0.16-1.47); MONOCYTES PERCENT AUTO 4 % (4-13); Mean Corpuscular HGB 30.3 pg (26.0-34.0); Mean Corpuscular HGB Conc 32.2 g/dL (31.5-36.5); Mean Corpuscular Volume 94 fL (80-100); Mean Platelet Volume 9.5 fL (9.1-12.4); NEUTROPHILS ABSOLUTE AUTO 16.58 K/mm3 (1.96-9.15); NEUTROPHILS PERCENT AUTO 88 % (41-73); Platelet Count 443 K/mm3 (150-400); RDW Coefficient Variation 13.4 % (11.7-14.2); RDW Standard Deviation 46.2 fL (35.1-46.3); Red Blood Cell Count 2.61 M/mm3 (4.30-5.90); White Blood Cell Count 18.91 K/mm3 (4.00-11.30)
[2021-02-19 04:54] LABS: Albumin, Blood 1.4 g/dL (3.4-5.0); Anion Gap 6 mmol/L (6-16); Blood Urea Nitrogen 15 mg/dL (8-24); Bun/Creatinine Ratio 24.8 (12.0-20.0); CO2, Blood 28 mmol/L (21-32); Calcium, Blood 7.7 mg/dL (8.5-10.1); Chloride, Blood 103 mmol/L (98-108); Creatinine, Blood 0.61 mg/dL (0.60-1.20); Glomerular Filtration Rate >60 (60-); Glucose, Blood 114 mg/dL (70-99); Phosphorus, Blood 4.3 mg/dL (2.5-4.9); Potassium, Blood 3.4 mmol/L (3.5-5.5); Sodium, Blood 137 mmol/L (136-145)
--- NOTE | 2021-02-19 05:26 | NUR ---
SHIFT SUMMARY LYING IN SEMI FOWLERS WITH EYES CLOSED, HAS SLEPT WELL THIS SHIFT. MEDICATED WITH PRN PAIN MEDS PER REQUEST. DRESSINGS TO UPPER ABD ARE C/D/I. RUQ UROSEAL DRAIN IS PATENT, CHAMBER DEPRESSED AND BROWN/GREEN FLUID WITH AIR EMPTIED INTO THE BAG. NO SIGNIFICANT CHANGED NOTED THIS SHIFT. DENIES PAIN, DISCOMFORT, OR FURTHER NEEDS AT THIS TIME. SAFETY MEASURES IN PLACE. WILL CONTINUE TO MONITOR FOR CHANGES/NEEDS AND ADDRESS THEM THEY ARISE, AND WILL GIVE HAND OFF TO ONCOMING SHIFT USING SBAR DURING BEDSIDE REPORT.
[2021-02-19 18:01] LABS: Source, Urine Clean Catch
[2021-02-19 18:12] LABS: Appearance, Urine Clear (Clear); Bilirubin, Urine Neg (Neg); Color, Urine Yellow (P-Yellow); Glucose Qualitative, Urine Neg (Neg); Ketones, Urine Neg (Neg); Nitrite, Urine Neg (Neg); Urobilinogen, Urine NORM (Normal)
[2021-02-19 18:25] LABS: Leukocyte Esterase, Urine Neg (Neg); Protein, Urine Neg (Neg); pH, Urine 6.5 (5.0-8.0)
[2021-02-19 18:26] LABS: Blood, Urine Neg (Neg)
--- NOTE | 2021-02-19 18:52 | NUR ---
DR. LOPES IN ROOM AT ABOUT 1330 AND MADE AWARE OF BROWN DRAINAGE FROM URESIL. BAG APPEARS TO FILL WITH GAS AND NEED TO BE FREQUENTLY RE-COMPRESSED. TOTAL DRAINAGE OUT TODAY WAS ABOUT 350ML. NO NEW ORDERS AT THIS TIME
--- NOTE | 2021-02-19 18:56 | NUR ---
SUMMARY: PT IS POD17 GRAM PATCH.NO ACUTE CHANGE TODAY, VSS, A/O. SURGICAL SITES WNL. PT CONTINUES TO TAKE IN ICE CHIPS, TPN INFUSING. ABD IS FIRM AND MODERATELY DISTENDED. PT HAD MUCUS AND LIQ BROWN BM TODAY. DID HAVE SOME URINE RETENTION, BLADDER SCAN SHOWED OVER 500ML. PT STRAIGHT CATHED AT 1530 AND 600ML URINE DRAINED. OTHERWISE PT STABLE, PARTICIPATES WITH CARE AND Q2 TURNS. IS ANXIOUS AT TIMES WHEN MOVING. NO ACUTE SAFETY CONCERNS.
[2021-02-20 05:58] LABS: Anion Gap 6 mmol/L (6-16); Blood Urea Nitrogen 13 mg/dL (8-24); Bun/Creatinine Ratio 20.5 (12.0-20.0); CO2, Blood 27 mmol/L (21-32); Calcium, Blood 7.9 mg/dL (8.5-10.1); Chloride, Blood 103 mmol/L (98-108); Creatinine, Blood 0.63 mg/dL (0.60-1.20); Glomerular Filtration Rate >60 (60-); Glucose, Blood 118 mg/dL (70-99); Magnesium, Blood 1.9 mg/dL (1.6-2.4); Phosphorus, Blood 4.5 mg/dL (2.5-4.9); Potassium, Blood 4.2 mmol/L (3.5-5.5); Sodium, Blood 136 mmol/L (136-145); Triglycerides 105 mg/dL (30-160)
--- NOTE | 2021-02-20 06:32 | NUR ---
SHIFT SUMMARY LYING IN LOW FOWLERS WITH EYES CLOSED. PT HAS NAPPED OFF AND ON THIS SHIFT. MEDICATED WITH PRN MEDS AVAILABLE. NO SIGNIFICANT CHANGED NOTED THIS SHIFT. ABDOMEN REMAINS FIRM, HAS HAD A FEW SMALL BM'S THAT WERE BROWN TINGED MUCUS. RUQ UROSEL DRAIN REMAINS PATENT, DRAINAING BROWN/GREEN FLUID INTO COLLECTION BAG. DENIES PAIN, DISCOMFORT, OR FURTHER NEEDS AT THIS TIME. SAFETY MEASURES IN PLACE. WILL CONTINUE TO MONITOR FOR CHANGES/NEEDS AND ADDRESS THEM THEY ARISE, AND WILL GIVE HAND OFF TO ONCOMING SHIFT USING SBAR DURING BEDSIDE REPORT.
--- NOTE | 2021-02-20 18:18 | NUR ---
SHIFT SUMMARY PT A&OX4, VSS, S/P DUOD ULCER REPAIR, KJ REMOVED/STERIS ON, URACIL DRAIN WITH GREEN BILE & AIR. PJ ICE CHIPS. PICC LINE, INFUSING WITH TPN & ABX ORDERED. URINATING FREQUENTLY IN URINAL. PAIN MANAGED WITH 0.5 MG DIL, FENT PATCH R SHOULDER. NICOTINE PATCH ON RIGHT SHOULDER. WILL REPORT TO ONCOMING ADILIA FONTENOT.
--- NOTE | 2021-02-21 04:54 | NUR ---
SHIFT SUMMARY: DARRON AROUSES EASILY AND RESPONDS APPROPRIATELY. VSS, NO ACUTE EVENTS OVERNIGHT. C-COLLAR IN PLACE, URESIL DRAINING GAS AND BROWNISH GREEN FLUID. HE IS ABLE TO MAKE HIS NEEDS KNOWN. HE IS CONTINENT/INCONTINENT, VOIDING SMALL AMOUNTS AT A TIME, ATTENDS IN PLACE. PICC TO CLARITA, TPN INFUSING. HE IS TOLERATING ICE CHIPS WELL, DENIES NAUSEA. HE IS LYING IN BED WITH HIS CALL LIGHT IN REACH. WILL REPORT TO DAY SHIFT RN.
[2021-02-21 06:14] LABS: Anion Gap 7 mmol/L (6-16); Blood Urea Nitrogen 15 mg/dL (8-24); Bun/Creatinine Ratio 25.6 (12.0-20.0); CO2, Blood 27 mmol/L (21-32); Calcium, Blood 8.1 mg/dL (8.5-10.1); Chloride, Blood 100 mmol/L (98-108); Creatinine, Blood 0.59 mg/dL (0.60-1.20); Glomerular Filtration Rate >60 (60-); Glucose, Blood 114 mg/dL (70-99); Phosphorus, Blood 4.8 mg/dL (2.5-4.9); Potassium, Blood 3.7 mmol/L (3.5-5.5); Sodium, Blood 134 mmol/L (136-145)
--- NOTE | 2021-02-21 18:24 | NUR ---
SHIFT SUMMARY PT A&OX4, VSS, S/P ULCER REPAIR, URACIL DRAIN W/GREEN BILE AND GAS OUT, STERI STRIPS CDI. PAIN MANAGED WITH 0.5 MG DILAUDID AND FENT PATCH. NPO, PJ PO ICE CHIPS ONLY. PICC LINE FLUSHES/DRAWS, TPN @ 84 MLS. AMB 1 PP MOD ASSIST W/ W/FWW & GB; UP TO CHAIR T/O SHIFT, BLE ELEVATED. VOIDING IN URINAL AND/OR BSC, FREQUENCY AND URGENCY; LIQUID BMS TODAY. XRAY CERVICAL COMPLETED TODAY, PUSHED BY IMAGING TO [facility], DR AZIZA RUTH; AWAITING DR RUTH'S RECOMMENDATION ON REMOVING C-COLLAR AND FOLLOW UP AT [facility]. WILL REPORT TO ONCOMING NOC CORIE.
--- NOTE | 2021-02-22 00:45 | NUR ---
0045 PT WOULD BENEFIT FROM STOOL SOFTENER. MOVING BOWELS WITH SOME DIFFICULTY.
--- NOTE | 2021-02-22 05:33 | NUR ---
SUMMARY PT HAD NOT VOIDED FOR MOST OF SHIFT. PT C/O OF LOW ABD DISCOMFORT. PT BLADDER SCANNED AND NOTED >850ML. DR SHARPE CALLED AND INFORMED. PROVIDER ORDERED PT TO HAVE BENOIT CATH, 1400 ML REMOVED. PT REPORTS DECREASED DISCOMFORT. PT IS EAGER TO HAVE OK TO REMOVE C-COLLAR WILL PASS ON TO DAY RN TO FOLLOW UP. PT ABD WOUND IS C/D/I. PT URSIL DRAIN HAD LITTLE OUT PUT NOTED THIS SHIFT. PT CONTINUES TO BE ANXIOUS. PT CURRENTLY SLEEPING IN NO DISTRESS. CALL LIGHT IN REACH.
[2021-02-22 06:38] LABS: Albumin, Blood 1.5 g/dL (3.4-5.0); Anion Gap 7 mmol/L (6-16); Blood Urea Nitrogen 18 mg/dL (8-24); Bun/Creatinine Ratio 25.2 (12.0-20.0); CO2, Blood 26 mmol/L (21-32); Calcium, Blood 7.4 mg/dL (8.5-10.1); Chloride, Blood 102 mmol/L (98-108); Creatinine, Blood 0.71 mg/dL (0.60-1.20); Glomerular Filtration Rate >60 (60-); Glucose, Blood 120 mg/dL (70-99); Phosphorus, Blood 5.2 mg/dL (2.5-4.9); Potassium, Blood 4.1 mmol/L (3.5-5.5); Sodium, Blood 135 mmol/L (136-145)
--- NOTE | 2021-02-22 07:17 | NUR ---
ASSUMED CARE: PT RESTING IN BED, CPN RUNNING THROUGH PICC LINE. C-COLLAR IN PLACE, WITH DISCUSS WITH NEUROLOGIST IF IT CAN COME OFF. NO ACUTE NEEDS OR CONCERNS AT THIS TIME.
--- NOTE | 2021-02-22 10:10 | NUR ---
CALL TO DR RUTH'S OFFICE TO SEE IF C-COLLAR CAN BE REMOVED. LAB CLERK STATES DR IS IN OR AND WILL GIVE MESSAGE WHEN DR BECOMES AVAILABLE. PT AWARE
--- NOTE | 2021-02-22 17:59 | NUR ---
SHIFT SUMMARY PT A/OX4. VERY SOFT SPOKEN. DR RUTH'S OFFICE WAS CALLED ABOUT REMOVAL OF C COLLAR, WITH NO RETURN OF PHONE CALL TO PRIMARY RN. BENOIT PLACED DURING PSYCH SPECIALIST DUE TO RETENTION AND DISCOMFORT PER PATIENT AND PSYCH SPECIALIST RN. PATIENT REMAINS NPO BUT IS TOLERATING ICE CHIPS. MIDLINE INCISION HAS MINIMAL REDNESS AND STERI STRIPS REMAIN C/D/I. URESEL DRAINING BROWN/GREEN FLUID AND FREQUENTLY FILLING WITH GAS. PICC LINE DRESSING CHANGED TODAY, CPN INFUSING. PATIENT HAVING BOWEL MOVEMENTS AND IS USING BEDSIDE COMMODE WITH ONE ASSIST AND WALKER.
[2021-02-23 05:53] LABS: BASOPHILS ABSOLUTE AUTO 0.02 K/mm3 (0.00-0.23); BASOPHILS PERCENT AUTO 0 % (0-2); EOSINOPHILS ABSOLUTE AUTO 0.25 K/mm3 (0.00-0.68); EOSINOPHILS PERCENT AUTO 2 % (0-6); Hematocrit 21.7 % (37.0-53.0); IMMATURE GRAN ABSOLUTE AUTO 0.13 K/mm3 (0.00-0.10); IMMATURE GRAN PERCENT AUTO 1 % (0-1); LYMPHOCYTES ABSOLUTE AUTO 0.86 K/mm3 (0.84-5.20); LYMPHOCYTES PERCENT AUTO 8 % (21-46); MONOCYTES PERCENT AUTO 7 % (4-13); Mean Corpuscular HGB Conc 32.3 g/dL (31.5-36.5); Mean Corpuscular Volume 93 fL (80-100); Mean Platelet Volume 9.5 fL (9.1-12.4); NEUTROPHILS ABSOLUTE AUTO 8.89 K/mm3 (1.96-9.15); NEUTROPHILS PERCENT AUTO 81 % (41-73); Platelet Count 545 K/mm3 (150-400); RDW Coefficient Variation 13.3 % (11.7-14.2); RDW Standard Deviation 45.3 fL (35.1-46.3); Red Blood Cell Count 2.33 M/mm3 (4.30-5.90); White Blood Cell Count 10.95 K/mm3 (4.00-11.30)
[2021-02-23 06:18] LABS: Alanine Aminotransfer (ALT/SGP 14 U/L (12-78); Albumin, Blood 1.5 g/dL (3.4-5.0); Albumin/Globulin Ratio 0.3 (0.8-1.8); Alk Phos 86 U/L (50-136); Anion Gap 7 mmol/L (6-16); Aspartate Aminotrans (AST/SGOT 14 U/L (12-37); Bilirubin, Total 0.6 mg/dL (0.1-1.0); Blood Urea Nitrogen 15 mg/dL (8-24); Bun/Creatinine Ratio 25.3 (12.0-20.0); CO2, Blood 26 mmol/L (21-32); Chloride, Blood 102 mmol/L (98-108); Creatinine, Blood 0.59 mg/dL (0.60-1.20); Globulin, Blood 4.3 g/dL (2.2-4.0); Glomerular Filtration Rate >60 (60-); Glucose, Blood 105 mg/dL (70-99); Phosphorus, Blood 4.2 mg/dL (2.5-4.9); Potassium, Blood 3.8 mmol/L (3.5-5.5); Sodium, Blood 135 mmol/L (136-145); Total Protein, Blood 5.8 g/dL (6.4-8.2)
--- NOTE | 2021-02-23 07:32 | NUR ---
PT HAD NO CHANGES T/O NIGHT. URESIL DRAINING LARGE AMT OF BILE DRNG+GAS. INCISIONS CDI. ABD MOD DISTENDED, BT HYPERACTIVE. PT REMAINS NPO, TPN CONT PER ORDERS. PT REPOSITIONED PJ, MED FOR PAIN X1 W/REP RELIEF. C-COLLAR IN PLACE, AWAITING FOLLOW UP FROM [facility]. REPORT GIVEN TO GOKUL Mcmahan RN.
--- NOTE | 2021-02-23 07:59 | NUR ---
PT GAVE STUDENT NURSE PERMISSION FOR CARE AT 0700 ON 02/23/21
--- NOTE | 2021-02-23 10:39 | NUR ---
PT'S NEUROSURGEON DR. RUTH'S OFFICE CONTACTED REGARDING C-COLLAR STATUS, PER WATER GAS OPERATOR RAND, "THE IMAGES HAVEN'T BEEN REVIEWED" STATES WILL LET US KNOW ONCE IMAGES HAVE BEEN REVIEWED.
[2021-02-23 13:21] LABS: Hematocrit 20.9 % (37.0-53.0); Hemoglobin 6.9 g/dL (13.5-17.5); Mean Corpuscular HGB 30.7 pg (26.0-34.0); Mean Corpuscular Volume 93 fL (80-100); Mean Platelet Volume 9.4 fL (9.1-12.4); Platelet Count 528 K/mm3 (150-400); RDW Coefficient Variation 13.2 % (11.7-14.2); Red Blood Cell Count 2.25 M/mm3 (4.30-5.90); White Blood Cell Count 10.78 K/mm3 (4.00-11.30)
--- NOTE | 2021-02-23 15:00 | NUR ---
DR KESSLER IN TO SEE PT.
--- NOTE | 2021-02-23 18:11 | NUR ---
SHIFT SUMMARY. PT POD 22 FOR PERFORATED DUODENAL ULCER REPAIR. URICEL DRAIN PUT OUT 610ML OF DARK GREEN THICK DRAINAGE AND GAS. PT TOLERATING NPO DIET, ICE CHIPS AND TPN. OT AND PT VISITED PT TODAY. PT ABLE TO AMBULATE WITH ASSISTANCE AND FWW. CCOLLAR IN PLACE- JAYMIE FONTENOT CALLED DR PICKERING OFFICE, AWAITING FURTHER INSTRUCTION. PAIN TREATED PER EMAR. PT RECEIVING ONE UNIT OF PRBC. PT RESTING IN BED. CALL LIGHT IN REACH.
--- NOTE | 2021-02-23 21:03 | NUR ---
1 UNIT OF BLOOD FINISHED AT 2054. PT TOLERATED WELL.
--- NOTE | 2021-02-23 22:17 | NUR ---
BLOOD DRAWN FOR CBC AND SENT TO LAB
[2021-02-23 22:25] LABS: Hematocrit 23.9 % (37.0-53.0); Hemoglobin 8.1 g/dL (13.5-17.5); Mean Corpuscular HGB 30.7 pg (26.0-34.0); Mean Corpuscular HGB Conc 33.9 g/dL (31.5-36.5); Mean Corpuscular Volume 91 fL (80-100); Mean Platelet Volume 9.2 fL (9.1-12.4); Platelet Count 533 K/mm3 (150-400); RDW Coefficient Variation 13.2 % (11.7-14.2); RDW Standard Deviation 43.5 fL (35.1-46.3); Red Blood Cell Count 2.64 M/mm3 (4.30-5.90); White Blood Cell Count 11.73 K/mm3 (4.00-11.30)
--- NOTE | 2021-02-24 03:21 | NUR ---
SURGERY AT 23 DAYS AGO FOR A PERFORATED DUODENAL ULCER. URECIL DRAIN IN PLACE, DRAINING THICK GREEN/BROWN LIQUID. CATHETER PATENT AND DRAINING YELLOW URINE. PT HAS NOT BEEN OOB DURING OUR SHIFT. TPN RUNNING. CCOLLAR IS STILL ON, WAITING FOR DR. RUTH ([facility]) TO GIVE THE OK TO TAKE IT OFF. PT HAS BEEN WORKING WITH OT AND PT DURING THE DAYS. 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 HE WAS GIVEN ONE UNIT OF PRBC YESTERDAY EVENING, WHICH HE TOLERATED WELL. VS STABLE. PT IS NPO EXCEPT FOR TPN AND ICE CHIPS, WHICH HE TOLERATES WELL. PT HAS BEEN RESTING IN BED MOST OF THE NIGHT AND HIS CALL LIGHT IS WITHIN REACH.
--- NOTE | 2021-02-24 05:10 | NUR ---
PIC LINE FLUSHES WELL BUT UNABLE TO PULL LABS. LAB NOTIFIED AND THEY WILL DRAW AM LABS.
[2021-02-24 05:33] LABS: BASOPHILS ABSOLUTE AUTO 0.02 K/mm3 (0.00-0.23); BASOPHILS PERCENT AUTO 0 % (0-2); EOSINOPHILS ABSOLUTE AUTO 0.21 K/mm3 (0.00-0.68); EOSINOPHILS PERCENT AUTO 2 % (0-6); Hematocrit 27.8 % (37.0-53.0); Hemoglobin 9.3 g/dL (13.5-17.5); IMMATURE GRAN ABSOLUTE AUTO 0.15 K/mm3 (0.00-0.10); IMMATURE GRAN PERCENT AUTO 1 % (0-1); LYMPHOCYTES ABSOLUTE AUTO 0.97 K/mm3 (0.84-5.20); LYMPHOCYTES PERCENT AUTO 9 % (21-46); MONOCYTES ABSOLUTE AUTO 0.78 K/mm3 (0.16-1.47); MONOCYTES PERCENT AUTO 7 % (4-13); Mean Corpuscular HGB 30.5 pg (26.0-34.0); Mean Corpuscular HGB Conc 33.5 g/dL (31.5-36.5); Mean Corpuscular Volume 91 fL (80-100); Mean Platelet Volume 9.1 fL (9.1-12.4); NEUTROPHILS ABSOLUTE AUTO 9.18 K/mm3 (1.96-9.15); NEUTROPHILS PERCENT AUTO 81 % (41-73); Platelet Count 585 K/mm3 (150-400); RDW Coefficient Variation 13.4 % (11.7-14.2); RDW Standard Deviation 45.1 fL (35.1-46.3); Red Blood Cell Count 3.05 M/mm3 (4.30-5.90); White Blood Cell Count 11.31 K/mm3 (4.00-11.30)
[2021-02-24 06:19] LABS: Alanine Aminotransfer (ALT/SGP 15 U/L (12-78); Albumin, Blood 2.4 g/dL (3.4-5.0); Albumin/Globulin Ratio 0.5 (0.8-1.8); Alk Phos 98 U/L (50-136); Anion Gap 7 mmol/L (6-16); Aspartate Aminotrans (AST/SGOT 13 U/L (12-37); Bilirubin, Total 1.1 mg/dL (0.1-1.0); Blood Urea Nitrogen 12 mg/dL (8-24); Bun/Creatinine Ratio 16.8 (12.0-20.0); CO2, Blood 28 mmol/L (21-32); Calcium, Blood 8.5 mg/dL (8.5-10.1); Chloride, Blood 98 mmol/L (98-108); Creatinine, Blood 0.72 mg/dL (0.60-1.20); Globulin, Blood 4.6 g/dL (2.2-4.0); Glomerular Filtration Rate >60 (60-); Glucose, Blood 94 mg/dL (70-99); Magnesium, Blood 1.8 mg/dL (1.6-2.4); Phosphorus, Blood 4.6 mg/dL (2.5-4.9); Potassium, Blood 3.4 mmol/L (3.5-5.5); Sodium, Blood 133 mmol/L (136-145)
--- NOTE | 2021-02-24 07:23 | NUR ---
PT VSS T/O NIGHT; LUNGS DIM. PRBC COMPLETED, PT PJ WELL. PT REP FEELING BETTER THIS AM; LESS WORN OUT. EDEMA TO BLE MUCH IMPROVED. URESIL CONT TO HAVE BILE +GAS OUTPUT; APPX 210 ML THIS SHIFT. PT SHIFTS SELF IN BED, REPOSITIONED PJ T/O NIGHT. PT NPO X ICE CHIPS, CPN CONT PER ORDERS. BEDSIDE REP GIVEN TO RASHIDA Erickson RN.
--- NOTE | 2021-02-24 18:28 | NUR ---
SUMMARY: NO CHANGE TODAY. VSS, A/O. SURGICAL SITES WNL, ABD IS MODERATELY DISTENDED, BUT SOFT. PT TOLERATES ICE CHIPS. TOTAL URESIL OUTPUT WAS 350ML OF BROWN/GREEN DRAINAGE AND GAS. PT WORKED WITH PT/OT, SEE NOTES, REPOSITIONS SELF IN BED. UNABLE TO REACH DR. RUTH THIS SHIFT TO ASK ABOUT C COLLAR, PLAN TO CALL AGAIN TOMORROW. NUMBER IS [phone]. REPEAT ABD CT ORDERED FOR SATURDAY. NO ACUTE SAFETY CONCERNS, WILL REPORT TO NOC CORIE.
--- NOTE | 2021-02-25 05:44 | NUR ---
PT AGREES TO ALLOW STUDENT TO PARTICIPATE IN CARE
--- NOTE | 2021-02-25 05:46 | NUR ---
SHIFT SUMMARY: PNEUMOPERITONEUM PERF DUO ULCER PT IS A&OX3 SLOW VERBAL RESPONSE, PT REPORTS WHARTON PAIN 3/10W POSITSONAL CSPINE HOB @<30 RIGHT SIDED FENTYNAL PATCH. LEFT SIDED PICC LINE IS POSITSONAL BUT PATENT INFUSING TPN AND MEDICATIONS, URESEAL DRAINING DARK GREEN AND IS COMPRESSED, BENOIT FOR RETENTION DRAINING CLEAR YELLOW,PT IS NPO,ABDOMINAL DRESSINGS ARE C/D/I WITH CLEAR SEALS SIDE RAILS UP,CALL LIGHT WITHIN REACH,BEDSIDE TABLE FOR ICE CHIPS WITHIN REACH
[2021-02-25 05:48] LABS: BASOPHILS ABSOLUTE AUTO 0.03 K/mm3 (0.00-0.23); BASOPHILS PERCENT AUTO 0 % (0-2); EOSINOPHILS PERCENT AUTO 2 % (0-6); Hematocrit 25.4 % (37.0-53.0); Hemoglobin 8.5 g/dL (13.5-17.5); IMMATURE GRAN ABSOLUTE AUTO 0.18 K/mm3 (0.00-0.10); IMMATURE GRAN PERCENT AUTO 2 % (0-1); LYMPHOCYTES ABSOLUTE AUTO 0.95 K/mm3 (0.84-5.20); LYMPHOCYTES PERCENT AUTO 8 % (21-46); MONOCYTES PERCENT AUTO 7 % (4-13); Mean Corpuscular HGB 30.4 pg (26.0-34.0); Mean Corpuscular HGB Conc 33.5 g/dL (31.5-36.5); Mean Corpuscular Volume 91 fL (80-100); Mean Platelet Volume 9.3 fL (9.1-12.4); NEUTROPHILS ABSOLUTE AUTO 9.64 K/mm3 (1.96-9.15); NEUTROPHILS PERCENT AUTO 82 % (41-73); Platelet Count 593 K/mm3 (150-400); RDW Coefficient Variation 13.2 % (11.7-14.2); RDW Standard Deviation 43.6 fL (35.1-46.3)
[2021-02-25 06:15] LABS: Alanine Aminotransfer (ALT/SGP 14 U/L (12-78); Albumin, Blood 2.6 g/dL (3.4-5.0); Albumin/Globulin Ratio 0.6 (0.8-1.8); Alk Phos 90 U/L (50-136); Anion Gap 6 mmol/L (6-16); Aspartate Aminotrans (AST/SGOT 10 U/L (12-37); Bilirubin, Total 0.9 mg/dL (0.1-1.0); Blood Urea Nitrogen 11 mg/dL (8-24); Bun/Creatinine Ratio 19.2 (12.0-20.0); CO2, Blood 28 mmol/L (21-32); Calcium, Blood 8.4 mg/dL (8.5-10.1); Chloride, Blood 96 mmol/L (98-108); Creatinine, Blood 0.57 mg/dL (0.60-1.20); Globulin, Blood 4.4 g/dL (2.2-4.0); Glomerular Filtration Rate >60 (60-); Glucose, Blood 108 mg/dL (70-99); Magnesium, Blood 1.9 mg/dL (1.6-2.4); Phosphorus, Blood 4.2 mg/dL (2.5-4.9); Potassium, Blood 3.4 mmol/L (3.5-5.5); Sodium, Blood 130 mmol/L (136-145)
--- NOTE | 2021-02-25 18:16 | NUR ---
SHIFT SUMMARY PT AAO X4. SITTING UP IN HIS BED WITH HOB ELEVATED. PICC LINE IN LEFT UPPER ARM PATENT AND INFUSING CPN. URESIL PATENT AND DRAINING THICK BROWN LIQUID. CATHETER PATENT AND DRAINING YELLOW URINE. PT WORKED WITH PHYSICAL THERAPY THIS AM AND TOLERATED WELL. PT HAS TOLERATED A SMALL AMOUNT OF ICE CHIPS WELL. PT DENIES ANY PAIN, NAUSEA, OR VOMITING. PT MEDICATED PER EMAR. NICOTINE PATCH ON RIGHT UPPER ARM. CALL LIGHT WITHIN REACH.
--- NOTE | 2021-02-25 21:13 | NUR ---
PT AGREES TO ALLOW STUDENT TO PARTICIPATE IN CARE
--- NOTE | 2021-02-26 06:41 | NUR ---
SHIFT SUMMARY: SEPSIS SECONFARY TO PERF DUO ULCER PT A&OX3 PAIN WITHIN TOLERABLE RANGE, DRESSING TO ABD C/D/I PICCO, URESEAL DRESSING IN PLACE C/D/I DRAINING GREEN BROWN COMPRESSED, BENOIT DRAINING, CPN IN FUSING PT NPO, REPOSITSONED T/O NIGHT PT SLEPT WELL, LEFT CENTRAL LINE WAS UNABLE TO DRAW AM LAB FLUSHES WELL, C-SPINE IN PLACE, CALL LIGHT WITHIN REACH HOB 30 DEGREES.
[2021-02-26 07:18] LABS: Hematocrit 28.2 % (37.0-53.0); Hemoglobin 9.3 g/dL (13.5-17.5); Mean Corpuscular HGB 30.6 pg (26.0-34.0); Mean Corpuscular Volume 93 fL (80-100); Mean Platelet Volume 9.1 fL (9.1-12.4); Platelet Count 675 K/mm3 (150-400); RDW Coefficient Variation 13.2 % (11.7-14.2); RDW Standard Deviation 44.9 fL (35.1-46.3); Red Blood Cell Count 3.04 M/mm3 (4.30-5.90); White Blood Cell Count 14.93 K/mm3 (4.00-11.30)
[2021-02-26 07:36] LABS: Albumin, Blood 2.4 g/dL (3.4-5.0); Anion Gap 6 mmol/L (6-16); Blood Urea Nitrogen 15 mg/dL (8-24); Bun/Creatinine Ratio 21.7 (12.0-20.0); CO2, Blood 27 mmol/L (21-32); Calcium, Blood 8.7 mg/dL (8.5-10.1); Chloride, Blood 98 mmol/L (98-108); Creatinine, Blood 0.69 mg/dL (0.60-1.20); Glomerular Filtration Rate >60 (60-); Glucose, Blood 116 mg/dL (70-99); Magnesium, Blood 2.1 mg/dL (1.6-2.4); Phosphorus, Blood 4.5 mg/dL (2.5-4.9); Potassium, Blood 4.1 mmol/L (3.5-5.5); Sodium, Blood 131 mmol/L (136-145)
[2021-02-26 15:34] LABS: BASOPHILS ABSOLUTE AUTO 0.04 K/mm3 (0.00-0.23); BASOPHILS PERCENT AUTO 0 % (0-2); EOSINOPHILS ABSOLUTE AUTO 0.23 K/mm3 (0.00-0.68); EOSINOPHILS PERCENT AUTO 2 % (0-6); Hematocrit 28.1 % (37.0-53.0); Hemoglobin 9.1 g/dL (13.5-17.5); IMMATURE GRAN ABSOLUTE AUTO 0.43 K/mm3 (0.00-0.10); IMMATURE GRAN PERCENT AUTO 3 % (0-1); LYMPHOCYTES ABSOLUTE AUTO 1.31 K/mm3 (0.84-5.20); LYMPHOCYTES PERCENT AUTO 9 % (21-46); MONOCYTES ABSOLUTE AUTO 0.82 K/mm3 (0.16-1.47); MONOCYTES PERCENT AUTO 6 % (4-13); Mean Corpuscular HGB 29.8 pg (26.0-34.0); Mean Corpuscular HGB Conc 32.4 g/dL (31.5-36.5); Mean Corpuscular Volume 92 fL (80-100); Mean Platelet Volume 9.2 fL (9.1-12.4); NEUTROPHILS ABSOLUTE AUTO 11.75 K/mm3 (1.96-9.15); NEUTROPHILS PERCENT AUTO 81 % (41-73); Platelet Count 709 K/mm3 (150-400); RDW Coefficient Variation 13.2 % (11.7-14.2); RDW Standard Deviation 44.9 fL (35.1-46.3); Red Blood Cell Count 3.05 M/mm3 (4.30-5.90); White Blood Cell Count 14.58 K/mm3 (4.00-11.30)
--- NOTE | 2021-02-26 17:53 | NUR ---
SHIFT SUMMARY PT SLEEPING IN BED WITH HOB ELEVATED. PT AAO X4. VSS STABLE. COUDE CATH IN PLACE PATENT AND DRAINING YELLOW URINE. URESIL PATENT AND DRAINING THICK BROWN/GREEN LIQUID. CPN INFUSING PER EMAR. PICC PATENT AND FUNCTIONING. PT GOT UP TO CHAIR TODAY FOR A COUPLE HOURS. PT WALKED TODAY WITH WALKER BUT WAS FATIGUED AFTER WALK. CONTINUED TO REINFORCE DEEP BREATHING AND USE INCENTIVE SPIROMETER. PT HAS DECLINED INCENTIVE SPIROMETRY THROUGHOUT THE DAY BUT STATES HE IS CONTINUING TO TAKE DEEP BREATHS. NEW RED AREA NOTED ON LEFT UPPER BACK AREA AND MEPILEX APPLIED. PT GOT UP TO BEDSIDE COMMODE TODAY AND HAD MODERATE AMOUNT OF THICK, MUCOUSY, BROWN/GREEN STOOL. CALL LIGHT WITHIN REACH. PT TO HAVE CT OF ABD TOMORROW.
--- NOTE | 2021-02-26 19:31 | NUR ---
PT AGREES TO STUDENT PARTICIPATING IN CARE
--- NOTE | 2021-02-27 05:09 | NUR ---
shift summary: sepsis r/t perf duo ulcer, c-spine collar in place waiting for [facility] surgical attending to confirm removal date PT is A&OX4 presents with depressed tearful affect r/t current illness, logical slow speech,ureseal dressing C/D/I draining green brown bilious compressed, johnson r/t retention clear jeny, CPN infusing PICC @82hr, dressing C/D/I, helped repositson pt throughout the shift HOB@30, call light and phone within reach.
[2021-02-27 06:13] LABS: BASOPHILS ABSOLUTE AUTO 0.07 K/mm3 (0.00-0.23); BASOPHILS PERCENT AUTO 0 % (0-2); EOSINOPHILS ABSOLUTE AUTO 0.41 K/mm3 (0.00-0.68); EOSINOPHILS PERCENT AUTO 3 % (0-6); Hematocrit 26.5 % (37.0-53.0); Hemoglobin 8.8 g/dL (13.5-17.5); IMMATURE GRAN ABSOLUTE AUTO 0.43 K/mm3 (0.00-0.10); IMMATURE GRAN PERCENT AUTO 3 % (0-1); LYMPHOCYTES ABSOLUTE AUTO 1.42 K/mm3 (0.84-5.20); LYMPHOCYTES PERCENT AUTO 9 % (21-46); MONOCYTES ABSOLUTE AUTO 1.05 K/mm3 (0.16-1.47); MONOCYTES PERCENT AUTO 7 % (4-13); Mean Corpuscular HGB 30.2 pg (26.0-34.0); Mean Corpuscular HGB Conc 33.2 g/dL (31.5-36.5); Mean Corpuscular Volume 91 fL (80-100); NEUTROPHILS ABSOLUTE AUTO 12.25 K/mm3 (1.96-9.15); NEUTROPHILS PERCENT AUTO 78 % (41-73); Platelet Count 701 K/mm3 (150-400); RDW Coefficient Variation 13.2 % (11.7-14.2); Red Blood Cell Count 2.91 M/mm3 (4.30-5.90); White Blood Cell Count 15.63 K/mm3 (4.00-11.30)
[2021-02-27 06:31] LABS: Alanine Aminotransfer (ALT/SGP 16 U/L (12-78); Albumin, Blood 2.3 g/dL (3.4-5.0); Albumin/Globulin Ratio 0.5 (0.8-1.8); Alk Phos 108 U/L (50-136); Anion Gap 6 mmol/L (6-16); Aspartate Aminotrans (AST/SGOT 16 U/L (12-37); Bilirubin, Total 0.5 mg/dL (0.1-1.0); Blood Urea Nitrogen 14 mg/dL (8-24); Bun/Creatinine Ratio 23.2 (12.0-20.0); CO2, Blood 26 mmol/L (21-32); Calcium, Blood 8.7 mg/dL (8.5-10.1); Chloride, Blood 97 mmol/L (98-108); Globulin, Blood 4.8 g/dL (2.2-4.0); Glomerular Filtration Rate >60 (60-); Glucose, Blood 103 mg/dL (70-99); Phosphorus, Blood 4.7 mg/dL (2.5-4.9); Potassium, Blood 4.3 mmol/L (3.5-5.5); Sodium, Blood 129 mmol/L (136-145); Total Protein, Blood 7.1 g/dL (6.4-8.2); Triglycerides 107 mg/dL (30-160)
--- NOTE | 2021-02-27 15:04 | NUR ---
PT TO IMAGING VIA GRUPO
--- NOTE | 2021-02-27 16:16 | NUR ---
PT RETURNED TO ROOM FROM IMAGING. BANDAID IN PLACE OVER PARACENTESIS INSERTION SITE ON ABDOMEN. PT DENIES PAIN OR TENDERNESS AROUND THE AREA.
[2021-02-27 17:19] LABS: Automated BF RBC Count 0.003 M/mm3 (0-0); Body Fluid WBC Count 4642 /mm3 (0-999); RBC Count, Body Fluid 3000 /mm3 (0-0)
[2021-02-27 17:29] LABS: Automated BF WBC Count 4.642 K/mm3 (0-999)
[2021-02-27 17:40] LABS: Albumin, Body Fluid 1.3 g/dL; Protein, Body Fluid 3.9 g/dL; Triglycerides, Body Fluid 38 mg/dL
[2021-02-27 17:45] LABS: Glucose, Body Fluid <1 mg/dL; Lactate Dehydrogenase, Body Fl 3542 U/L
[2021-02-27 17:58] LABS: Appearance, Body Fluid Hazy (Clear); Color, Body Fluid Yellow (None-Yellow); Total Cell Count, Body Fluid 100
--- NOTE | 2021-02-27 18:30 | NUR ---
SHIFT SUMMARY PT IS A/O X4, FLAT AFFECT BUT COOPERATIVE WITH STAFF T/O SHIFT. VSS. PT REPORTS A MILD AMT OF PAIN, BUT TOLERABLE WITH FENT PATCH PER EMAR. URESIL AND BENOIT IN PLACE AND DRAINING APPROPRIATLY. C COLLAR REMOVED TODAY PER DR. RUTH. CALL LIGHT IN REACH, WILL CONTINUE TO MONITOR UNTIL REPORT GIVEN TO ONCOMING RN.
[2021-02-27 19:37] LABS: pH, Body Fluid 7.3
--- NOTE | 2021-02-28 06:15 | NUR ---
SUMMARY PT SAD TONIGHT IMAGING DONE DURING THE DAY NOTED MORE ABSCESSES.PT VERB ANXIOUS TO GO HOME HE HAS ELDERLY PETS HE IS WORRIED ABOUT.FRIENDS REPORTED TO DAY RN THEY ARE DOING WELL.PT CHEERED UP WHEN I REMINDED HIM OF THIS,HOWEVER CONTINUES VERY ANXIOUS FOR DISCHARGE.
[2021-02-28 06:17] LABS: Anion Gap 7 mmol/L (6-16); Blood Urea Nitrogen 15 mg/dL (8-24); Bun/Creatinine Ratio 22.9 (12.0-20.0); CO2, Blood 26 mmol/L (21-32); Calcium, Blood 8.8 mg/dL (8.5-10.1); Chloride, Blood 96 mmol/L (98-108); Creatinine, Blood 0.65 mg/dL (0.60-1.20); Glomerular Filtration Rate >60 (60-); Glucose, Blood 112 mg/dL (70-99); Potassium, Blood 3.6 mmol/L (3.5-5.5); Sodium, Blood 129 mmol/L (136-145)
[2021-02-28 08:44] LABS: BASOPHILS ABSOLUTE AUTO 0.06 K/mm3 (0.00-0.23); BASOPHILS PERCENT AUTO 0 % (0-2); EOSINOPHILS ABSOLUTE AUTO 0.41 K/mm3 (0.00-0.68); EOSINOPHILS PERCENT AUTO 3 % (0-6); Hematocrit 26.7 % (37.0-53.0); Hemoglobin 8.7 g/dL (13.5-17.5); IMMATURE GRAN ABSOLUTE AUTO 0.54 K/mm3 (0.00-0.10); IMMATURE GRAN PERCENT AUTO 4 % (0-1); LYMPHOCYTES PERCENT AUTO 8 % (21-46); MONOCYTES ABSOLUTE AUTO 0.86 K/mm3 (0.16-1.47); MONOCYTES PERCENT AUTO 6 % (4-13); Mean Corpuscular HGB 30.3 pg (26.0-34.0); Mean Corpuscular HGB Conc 32.6 g/dL (31.5-36.5); Mean Corpuscular Volume 93 fL (80-100); Mean Platelet Volume 9.9 fL (9.1-12.4); NEUTROPHILS ABSOLUTE AUTO 11.45 K/mm3 (1.96-9.15); NEUTROPHILS PERCENT AUTO 79 % (41-73); Platelet Count 646 K/mm3 (150-400); RDW Coefficient Variation 13.2 % (11.7-14.2); RDW Standard Deviation 45.1 fL (35.1-46.3); Red Blood Cell Count 2.87 M/mm3 (4.30-5.90); White Blood Cell Count 14.52 K/mm3 (4.00-11.30)
--- NOTE | 2021-02-28 18:28 | NUR ---
SHIFT SUMMARY PT A/O X4, VSS. PAIN CONTROLLED W/ FENT PATCH PER EMAR. PT MOOD AND AFFECT A LITTLE BRIGHTER THIS AFTERNOON. CONTINUES TO DECLINE REPOSITIONING OR SITTING IN A CHAIR. REMAINS NPO W/ ICE CHIPS AND TPN. URESIL AND BENOIT IN PLACE AND DRAINING APPROPRIATELY. CALL LIGHT IN REACH, WILL CONTINUE TO MONITOR UNTIL REPORT GIVEN TO ONCOMING RN.
--- NOTE | 2021-02-28 19:20 | NUR ---
ASSUMED CARE FROM DAY SHIFT STUDENT NURSE
--- NOTE | 2021-03-01 04:28 | NUR ---
SHIFT SUMMARY PT MOOD AND AFFECT ARE MUCH IMPROVED TODAY. HE WILL BE GOING TO SURGERY THIS AM AND IS HAPPY ABOUT THE POSSIBILITIES SURGERY WILL BRING FOR HIM. PT DECLINES TO BE REPOSITIONED. URECIL DRAIN STILL IN TACT AND DRAINING BROWN/GREEN LIQUID. PATENT BENOIT CATHETER IN PLACE AND DRAINING. CALL LIGHT WITHIN REACH AND WILL CONTINUE TO MONITOR PT. FENTANYL PATCH IS WORKING WELL FOR PAIN CONTROL. PT WAS GIVEN ONE 5MG MELOTONIN FOR SLEEP AT BEDTIME. PT ALSO HAS A NICOTINE PATCH IN PLACE.
[2021-03-01 04:34] LABS: BASOPHILS ABSOLUTE AUTO 0.06 K/mm3 (0.00-0.23); BASOPHILS PERCENT AUTO 1 % (0-2); EOSINOPHILS PERCENT AUTO 2 % (0-6); Hematocrit 30.1 % (37.0-53.0); Hemoglobin 9.6 g/dL (13.5-17.5); IMMATURE GRAN ABSOLUTE AUTO 0.54 K/mm3 (0.00-0.10); IMMATURE GRAN PERCENT AUTO 4 % (0-1); LYMPHOCYTES ABSOLUTE AUTO 1.16 K/mm3 (0.84-5.20); LYMPHOCYTES PERCENT AUTO 9 % (21-46); MONOCYTES ABSOLUTE AUTO 0.79 K/mm3 (0.16-1.47); MONOCYTES PERCENT AUTO 6 % (4-13); Mean Corpuscular HGB Conc 31.9 g/dL (31.5-36.5); Mean Corpuscular Volume 91 fL (80-100); Mean Platelet Volume 9.2 fL (9.1-12.4); NEUTROPHILS ABSOLUTE AUTO 10.23 K/mm3 (1.96-9.15); NEUTROPHILS PERCENT AUTO 78 % (41-73); Platelet Count 790 K/mm3 (150-400); RDW Standard Deviation 43.6 fL (35.1-46.3); Red Blood Cell Count 3.31 M/mm3 (4.30-5.90); White Blood Cell Count 13.08 K/mm3 (4.00-11.30)
[2021-03-01 04:58] LABS: Alanine Aminotransfer (ALT/SGP 16 U/L (12-78); Albumin, Blood 2.3 g/dL (3.4-5.0); Albumin/Globulin Ratio 0.5 (0.8-1.8); Alk Phos 128 U/L (50-136); Anion Gap 6 mmol/L (6-16); Aspartate Aminotrans (AST/SGOT 11 U/L (12-37); Bilirubin, Total 0.6 mg/dL (0.1-1.0); Blood Urea Nitrogen 11 mg/dL (8-24); Bun/Creatinine Ratio 16.9 (12.0-20.0); CO2, Blood 28 mmol/L (21-32); Calcium, Blood 8.7 mg/dL (8.5-10.1); Chloride, Blood 97 mmol/L (98-108); Creatinine, Blood 0.65 mg/dL (0.60-1.20); Glomerular Filtration Rate >60 (60-); Glucose, Blood 133 mg/dL (70-99); Phosphorus, Blood 4.3 mg/dL (2.5-4.9); Potassium, Blood 3.4 mmol/L (3.5-5.5); Sodium, Blood 131 mmol/L (136-145); Total Protein, Blood 7.3 g/dL (6.4-8.2)
--- NOTE | 2021-03-01 06:14 | NUR ---
URICEL DRAIN EMPTIED 10ML
--- NOTE | 2021-03-01 06:27 | NUR ---
PT VSS T/O NIGHT. URESIL DRAIN HAD MINIMAL OUTPUT. PT REP PAIN PJ; FENTANYL PATCH IN PLACE. ABD REMAINS FIRM/DISTENDED, PT HAD NO C/O N/V, IS PASSING FLATUS, NO BM THIS SHIFT. CPN AND ABX CONT. PT NPO FOR PLAN FOR SURGERY TODAY. PT APPEARS IN BETTER SPIRITS, REPORTS FEELING EAGER FOR SURGERY. PT DECLINING REPOSITIONING IN BED.
--- NOTE | 2021-03-01 09:30 | NUR ---
TO DAY SURGERY VIA BED
--- NOTE | 2021-03-01 09:42 | NUR ---
2 ATTEMPTS BY GABBY FONTENOT.
--- NOTE | 2021-03-01 12:34 | NUR ---
03/01/[address] PLACED BILATERAL TAP BLOCKS PRIOR TO START OF CASE
[2021-03-01 14:20] LABS: Hematocrit 26.9 % (37.0-53.0); Hemoglobin 8.7 g/dL (13.5-17.5)
--- NOTE | 2021-03-01 16:50 | NUR ---
REPORT TO ICU, RN. CAREGIVER, ARVIN, UPDATED ON STATUS CHANGE.
--- NOTE | 2021-03-01 17:20 | NUR ---
INITIAL ASSESSMENT PATIENT ALERT AND ORIENTED X 4, AFEBRILE. SOFT SPOKEN. PATIENT APPEARS DEPRESSED, WITH FLAT AFFECT. PATIENT REPORTS HE HAD L HAND AND ARM DEFICIT FROM RECENT C-SPINE SURGERY. C-SPINE COLLAR ABLE TO BE TAKEN OFF 2 DAYS AGO PER REPORT. PATIENT HAS COMPLAINED OF LUNG PAIN WHEN BREATHING IN AND ALSO OF STOMACH PAIN. MEDS BEING GIVEN PER EMAR. LUNGS CLEAR TO AUSCULTATION. PATIENT TITRATED DOWN FROM 15 L NONREBREATHER TO RA DURING SHIFT. PATIENT SR TO ST, WITH PVCS. HR 90S TO LOW 100S. SBP 60S TO 70S UPON ARRIVAL; INCREASED TO SBP LOW 100S. NG TO LIS. BENOIT DRAINING DARK YELLOW COLORED URINE. RICCARDO DRAINS TO L ABD, R UPPER ABD, AND R LOWER ABD. JPS ALL DRAINING SANGUINEOUS FLUID. SKIN PALE AND BRUISED T/O. REDDENED AREAS NOTED TO L SCAPULA AND R CALF. MIDLINE ABD BRIANA NOTED. PATIENT RECEIVING FLUID BOLUSES. PATIENT ORIENTED TO UNIT, ROOM AND CALL LIGHT. BED LOW, CALL LIGHT IN REACH.
[2021-03-01 17:23] LABS: Hematocrit 20.6 % (37.0-53.0); Hemoglobin 6.6 g/dL (13.5-17.5); Mean Corpuscular Volume 94 fL (80-100); Mean Platelet Volume 9.2 fL (9.1-12.4); Platelet Count 676 K/mm3 (150-400); RDW Coefficient Variation 13.2 % (11.7-14.2); White Blood Cell Count 32.65 K/mm3 (4.00-11.30)
[2021-03-01 17:55] LABS: BAND PERCENT MAN 6 % (0-8); BASOPHILS PERCENT MAN 0 % (0-2); EOSINOPHILS PERCENT MAN 0 % (0-6); LYMPHOCYTES ABSOLUTE MAN 0.97 K/mm3 (0.84-5.20); LYMPHOCYTES PERCENT MAN 3 % (21-46); METAMYELOCYTE ABSOLUTE MAN 0.65 K/mm3 (0.00-0.00); METAMYELOCYTE PERCENT MAN 2 % (0-0); MONOCYTES ABSOLUTE MAN 1.63 K/mm3 (0.16-1.47); MONOCYTES PERCENT MAN 5 % (4-13); MYELOCYTE ABSOLUTE MAN 0.65 K/mm3 (0.00-0.00); MYELOCYTE PERCENT MAN 2 % (0-0); NEUTROPHILS ABSOLUTE MAN 28.73 K/mm3 (1.96-9.15); SEG NEUTROPHILS PERCENT MAN 82 % (41-73); TOTAL CELLS COUNTED 100
[2021-03-01 18:02] LABS: Alanine Aminotransfer (ALT/SGP 40 U/L (12-78); Albumin, Blood 1.4 g/dL (3.4-5.0); Albumin/Globulin Ratio 0.4 (0.8-1.8); Alk Phos 76 U/L (50-136); Anion Gap 8 mmol/L (6-16); Aspartate Aminotrans (AST/SGOT 51 U/L (12-37); Bilirubin, Total 0.5 mg/dL (0.1-1.0); Blood Urea Nitrogen 15 mg/dL (8-24); Bun/Creatinine Ratio 19.4 (12.0-20.0); CO2, Blood 21 mmol/L (21-32); Calcium, Blood 7.6 mg/dL (8.5-10.1); Chloride, Blood 106 mmol/L (98-108); Creatinine, Blood 0.78 mg/dL (0.60-1.20); Globulin, Blood 3.2 g/dL (2.2-4.0); Glomerular Filtration Rate >60 (60-); Glucose, Blood 175 mg/dL (70-99); Potassium, Blood 3.7 mmol/L (3.5-5.5); Sodium, Blood 135 mmol/L (136-145)
[2021-03-01 18:03] LABS: Total Protein, Blood 4.6 g/dL (6.4-8.2)
--- NOTE | 2021-03-01 18:04 | NUR ---
DR. HARRIS CALLED AND INFORMED OF HGB OF 6.6, WBC INCREASED TO 32.65, LACTIC OF 5.7. INFORMED THAT SBP IN 90S AND MAP 77 CURRENTLY. ORDERS RECEIVED.
--- NOTE | 2021-03-01 19:15 | NUR ---
SHIFT SUMMARY PATIENT HAS REMAINED A AND O X 4, AFEBRILE. PATIENT GIVEN SCHEDULED BACLOFEN AND PRN DILAUDID OT FOR COMPLAINTS OF PAIN IN LUNGS WHEN BREATHING IN AND IN STOMACH. PATIENT REMAINS SATTING 90% AND GREATER ON RA. PATIENT HAS REMAINED SR TO ST WITH PVCS. HR 90S TO LOW 100S. SBP UP TO 120S. PATIENT HAD 1 L LR FROM PACU ON ADMITTANCE TO ICU. PATIENT HAS SINCE THEN HAD 3 BOLUSES OF 1 L NS. NO BM THIS SHIFT. PATIENT ABLE TO HAVE SIPS AND CHIPS. NG TO LIS. BENOIT DRAINING DARK YELLOW URINE. JPS DRAINED 225 MLS OF SEROSANGUINEOUS FLUID. TPN INFUSING AT 84 MLS/ HOUR. PATIENT WILL BE RECEIVING 1 UNITS PRBC FOR HEMOGLOBIN OF 6.6. REPORT HAS BEEN GIVEN TO ASSUMING FIELD ASSESSOR NURSE.
--- NOTE | 2021-03-01 19:49 | NUR ---
ASSUMPTION OF CARE REPORT RECEIVED FROM ARTHUR FONTENOT. PT ALERT AND ORIENTED, SOFT SPOKEN, STATES "FEELING BETTER". SBP 130'S, HR 100-115'S WITH OCCASSIONAL PVCS, SPO2 97% ON RA. BENOIT PATENT AND DRAINING TO GRAVITY. BRIANA DRESSING INTACT WITH TWO SMALL AREAS OF DRAINAGE NOTED. RICCARDO DRAINS COMPRESSED AND DRAINING SEROSANGUINEOUS FLUID. TPN INFUSING AT 84 ML/HR, NS AT BOLUS RATE, AND ZOSYN AT 12.5 ML/HR. NG TO LIS, PT REQUESTED SIP OF WATER THEN STATED "IT UPSET MY STOMACH". PT DENIES PAIN AT THIS TIME.
[2021-03-02 01:16] LABS: Hematocrit 23.8 % (37.0-53.0); Hemoglobin 8.1 g/dL (13.5-17.5); Mean Corpuscular HGB 30.3 pg (26.0-34.0); Mean Corpuscular Volume 89 fL (80-100); Mean Platelet Volume 9.2 fL (9.1-12.4); Platelet Count 639 K/mm3 (150-400); RDW Coefficient Variation 13.5 % (11.7-14.2); RDW Standard Deviation 44.2 fL (35.1-46.3); Red Blood Cell Count 2.67 M/mm3 (4.30-5.90); White Blood Cell Count 24.48 K/mm3 (4.00-11.30)
[2021-03-02 01:33] LABS: Anion Gap 8 mmol/L (6-16); Blood Urea Nitrogen 17 mg/dL (8-24); Bun/Creatinine Ratio 25.3 (12.0-20.0); CO2, Blood 22 mmol/L (21-32); Calcium, Blood 7.2 mg/dL (8.5-10.1); Chloride, Blood 106 mmol/L (98-108); Creatinine, Blood 0.67 mg/dL (0.60-1.20); Glomerular Filtration Rate >60 (60-); Glucose, Blood 208 mg/dL (70-99); Potassium, Blood 3.7 mmol/L (3.5-5.5); Sodium, Blood 136 mmol/L (136-145)
[2021-03-02 01:36] LABS: BAND PERCENT MAN 16 % (0-8); BASOPHILS PERCENT MAN 0 % (0-2); EOSINOPHILS PERCENT MAN 0 % (0-6); LYMPHOCYTES ABSOLUTE MAN 0.24 K/mm3 (0.84-5.20); LYMPHOCYTES PERCENT MAN 1 % (21-46); METAMYELOCYTE ABSOLUTE MAN 0.24 K/mm3 (0.00-0.00); METAMYELOCYTE PERCENT MAN 1 % (0-0); MONOCYTES ABSOLUTE MAN 0.97 K/mm3 (0.16-1.47); MONOCYTES PERCENT MAN 4 % (4-13); NEUTROPHILS ABSOLUTE MAN 23.01 K/mm3 (1.96-9.15); SEG NEUTROPHILS PERCENT MAN 78 % (41-73); TOTAL CELLS COUNTED 100
--- NOTE | 2021-03-02 06:13 | NUR ---
SHIFT SUMMARY PT ALERT AND ORIENTED T/O SHIFT. HR SR/ST 90-115'S, SBP 90-120'S, SPO2 >92% ON RA. PT COMPLAINING OF ABD PAIN, PRN DILAUDID GIVEN TWICE THIS SHIFT PER EMAR. RICCARDO DRAINS X3 COMPRESSED AND DRAINING SEROSANGENOUS FLUID. BENOIT PATENT AND DRAINING TO GRAVITY. MIDLINE BRIANA DRESSING CDI. 1 UNIT PRBCS GIVEN THIS SHIFT. TPN INFUSING AT 84 ML/HR, NS AT 125 ML/HR. NG REMAINS TO LIS.
--- NOTE | 2021-03-02 08:00 | NUR ---
PT A&OX4-APPEARS WITHDRAWN. FLAT AFFECT. DISCUSSED CODE STATUS WITH PT HE APPEARS DEPRESSED AND HAS BEEN HOSPITALIZED SINCE 02/01/21. PT WISHES TO REMAIN A FULL CODE. HE STATES "I'M NOT READY TO GIVE UP YET!" PT REPORTS 03/13 ABDOMINAL PAIN-FENTANYL PATCH TO BE REPLACED THIS AM-MED WITH DILAUDID 0.5 MG IVP X 1-SEE EMAR. ABDOMINAL BRIANA WOUND DRESSING/VAC IN PLACE- RICCARDO #1 RUQ DRAINING DARK, RED/BLACK LIQUID DRAINAGE-50 CC EMPTIED AND RICCARDO TO BULB SUCTION-RICCARDO #2 RLQ WITH SANGINOUS DRAINAGE-80 CC EMPTIED AND RICCARDO TO BULB SUCTION, RICCARDO #3 TO LUQ WITH SANGINOUS DRAINAGE-30 CC EMPTIED AND RICCARDO TO BULB SUCTION. NGT TO LEFT NARES CLAMPED BRIEFLY AFTER ROUTINE AM MEDS GIVEN-PT IMMEDIATELY REPORTED NAUSEA-MED WITH ZOFRAN 4 MG IVP X 1 WITH NO IMPROVEMENT IN SYMPTOMS-NGT RETURNED TO SUCTION AND SYMPTOMS RESOLVED. BT'S HYPOACTIVE X 4. PT IS AFEBRILE, ECG SHOWS SR WITH PAC'S. BP STABLE. BENOIT WITH SMALL AMOUNT OF DARK, YELLOW URINE TO BSD. SKIN OVERALL C/D/I/ FOAM DRESSING TO RIGHT SCAPULA-C/D/I. COCCYX CLEAR, BUT PT RELUCTANT TO TURN-PLACED FOAM DRESSING FOR PREVENTATIVE MEASURE AND PT POSITIONED TO RIGHT SIDE WITH HEELS FLOATED ON PILLOW.
--- NOTE | 2021-03-02 10:00 | NUR ---
PT APPEARS TO BE SLEEPING. NO NOTED DISTRESS AT THIS TIME.
--- NOTE | 2021-03-02 11:46 | NUR ---
PT DENIES PAIN. REQUESTING ICE CHIPS. RN HAS BEEN GIVING ICE CHIPS SPARINGLY PT VERY NAUSEAOUS WHEN GIVEN MED PT THIS AM. REGLAN GIVEN-SEE EMAR. PT GIVEN A FEW ICE CHIPS AND HE BEGAN TO BELCH AND GRIMACE IMMEDIATELY. NGT TO LIS WITH SMALL AMOUNT OF GREEN, LIQUID DRAINAGE. ABDOMINAL/BRIANA DRESSING REMAINS C/D/I. LUNGS REMAIN CLEAR-RESPIRATIONS SHALLOW. ASKED PT TO COUGH AND DEEP BREATH. PT STATES"I CAN'T." PT DID ATTEMPT TO TAKE 5 DEEP BREATHS WITH COACHING-MAINTAINS SATS>90% ON RA. NO NOTED RESPIRATORY DISTRESS.
--- NOTE | 2021-03-02 16:00 | NUR ---
PT NOW SURGICAL STATUS. VS REMAIN STABLE. PT REPORTED 5/10 ABDOMINAL PAIN AND WAS MEDICATED WITH DILAUDID 0.5 MG IVP X 1 (SEE EMAR), THEN GIVEN BED BATH, GOWN CHANGE COMPLETED, HAIR WASHED, SHAVED, AND THEN PT ABLE TO SIT AT THE BEDSIDE X 5 MINUTES. ENCOURAGED C&DB. HOWEVER, PT STATES "I CAN'T!" PT INSTRUCTED IN SPLINTING, BUT STILL POOR COUGH EFFORT.
--- NOTE | 2021-03-02 16:36 | NUR ---
NO ACUTE CHANGES NOTED-REPORT PHONED TO CORIE CUETO IN PREP TO TRANSFER PT TO ROOM 229.
[2021-03-02 17:14] LABS: Vancomycin, Trough 10.5 ug/mL (5.0-10.0)
--- NOTE | 2021-03-02 18:46 | NUR ---
PT ARRIVED TO UNIT AT 1700 VIA BED FROM ICU, MEDICATED PER EMAR. PT LYING IN BED RELAXING, OCCASIONALLY EATING ICE CHIPS. PT HAS DIFFICULTY FEEDING HIMSELF ICECHIPS. MIDLINE ABD BRIANA C/D/I. RICCARDO DRAIN X2 TO THE R ABD, 1 RICCARDO DRAIN TO THE L ABD. DRAINS 1 & 2 DRAINING DARK BROWN RED AND DRAIN 3 DRAINING BRIGHTER RED. POD1 EX LAP. PICC LINE CLARITA, 20G IV RAC. BED IN LOW POSITION, CALL LIGHT IN PLACE. WILL REPORT TO ONCOMING RN.
--- NOTE | 2021-03-02 20:44 | NUR ---
CALLED HOSPITALIST HUB CUTTER REGARDING VITALS. HOSPITALIST REPORTS WILL LOOK AT CHART AND PUT IN ORDERS IF NECESSARY.
[2021-03-02 21:15] LABS: Hemoglobin 7.2 g/dL (13.5-17.5); Mean Corpuscular HGB 30.4 pg (26.0-34.0); Mean Corpuscular HGB Conc 34.3 g/dL (31.5-36.5); Mean Corpuscular Volume 89 fL (80-100); Mean Platelet Volume 9.3 fL (9.1-12.4); Platelet Count 636 K/mm3 (150-400); RDW Coefficient Variation 14.3 % (11.7-14.2); RDW Standard Deviation 46.2 fL (35.1-46.3); Red Blood Cell Count 2.37 M/mm3 (4.30-5.90); White Blood Cell Count 34.31 K/mm3 (4.00-11.30)
--- NOTE | 2021-03-02 21:38 | NUR ---
HOSPITALIST HERE TO SEE PT; DISCUSSED LABS AND TREATMENT. NEW ORDER FOR NS @150. BIOX AND TELE RECENTLY PLACED; PT ON 3L O2 AT 95%, TELE SHOWING HR IN 120'S.
[2021-03-02 21:40] LABS: BAND PERCENT MAN 5 % (0-8); BASOPHILS PERCENT MAN 0 % (0-2); EOSINOPHILS PERCENT MAN 0 % (0-6); LYMPHOCYTES ABSOLUTE MAN 1.71 K/mm3 (0.84-5.20); LYMPHOCYTES PERCENT MAN 5 % (21-46); MONOCYTES ABSOLUTE MAN 1.02 K/mm3 (0.16-1.47); MONOCYTES PERCENT MAN 3 % (4-13); MYELOCYTE ABSOLUTE MAN 0.34 K/mm3 (0.00-0.00); MYELOCYTE PERCENT MAN 1 % (0-0); NEUTROPHILS ABSOLUTE MAN 31.22 K/mm3 (1.96-9.15); SEG NEUTROPHILS PERCENT MAN 86 % (41-73); TOTAL CELLS COUNTED 100
--- NOTE | 2021-03-03 00:32 | NUR ---
PT AGREES TO STUDENT PARTICIPATING IN CARE
--- NOTE | 2021-03-03 03:57 | NUR ---
SHIFT SUMMARY PT HAS BEEN A/O X4 OVERNIGHT, PLEASANT, AND COOPERATIVE WITH CARE. ASSISTED WITH REPOSITIONING PRN; DECLINING AT TIMES. BENOIT IN PLACE, PATENT, DRAINING DARK YELLOW URINE. CPN INFUSING INTO PICC LINE IN CLARITA. NS @150 STARTED THIS SHIFT PER HOSPITALIST. LACTIC RE-DRAW WNL. PT HAS CONTINUED TO HAVE ELEVATED VITALS WITH HR 115-130, BP ELEVATED, TEMP OF 99-100.7, AND RR 24-30 OVERNIGHT. DISCUSSED WITH HOSPITALIST ON-CALL. DRESSINGS TO ABD CHANGED THIS SHIFT ORIGINAL BRIANA WOULD NOT SEAL. RICCARDO X3 TO ABD IN PLACE WITH RICCARDO #1 DRAINING LARGE AMT DARK BROWN/RED FLUID. NG TUBE IS IN PLACE TO LIS; NO OUTPUT OVERNIGHT. PT HAS HAD ONE DOSE OF PAIN MED THIS SHIFT WITH DRESSING CHANGE, BUT HAS OTHERWISE DECLINED PAIN MEDICATION OVERNIGHT. PT IS RESTING IN BED AT THIS TIME, CALL LIGHT IN REACH.
[2021-03-03 04:51] LABS: Hematocrit 18.3 % (37.0-53.0); Hemoglobin 6.1 g/dL (13.5-17.5); Mean Corpuscular HGB Conc 33.3 g/dL (31.5-36.5); Mean Corpuscular Volume 90 fL (80-100); Mean Platelet Volume 9.5 fL (9.1-12.4); Platelet Count 558 K/mm3 (150-400); RDW Standard Deviation 46.1 fL (35.1-46.3); Red Blood Cell Count 2.03 M/mm3 (4.30-5.90); White Blood Cell Count 28.63 K/mm3 (4.00-11.30)
[2021-03-03 05:16] LABS: BAND PERCENT MAN 4 % (0-8); BASOPHILS PERCENT MAN 0 % (0-2); EOSINOPHILS PERCENT MAN 0 % (0-6); LYMPHOCYTES ABSOLUTE MAN 0.57 K/mm3 (0.84-5.20); LYMPHOCYTES PERCENT MAN 2 % (21-46); MONOCYTES ABSOLUTE MAN 1.43 K/mm3 (0.16-1.47); MONOCYTES PERCENT MAN 5 % (4-13); NEUTROPHILS ABSOLUTE MAN 26.62 K/mm3 (1.96-9.15); SEG NEUTROPHILS PERCENT MAN 89 % (41-73); TOTAL CELLS COUNTED 100
--- NOTE | 2021-03-03 05:35 | NUR ---
SPOKE WITH DR. HIDALGO REGARDING HGB OF 6.1. ORDER GIVEN TO TRANSFUSE ONE UNIT PRBC'S.
[2021-03-03 05:54] LABS: Alanine Aminotransfer (ALT/SGP 23 U/L (12-78); Albumin, Blood 1.4 g/dL (3.4-5.0); Albumin/Globulin Ratio 0.4 (0.8-1.8); Alk Phos 59 U/L (50-136); Anion Gap 5 mmol/L (6-16); Aspartate Aminotrans (AST/SGOT 20 U/L (12-37); Bilirubin, Total 0.8 mg/dL (0.1-1.0); Blood Urea Nitrogen 16 mg/dL (8-24); Bun/Creatinine Ratio 24.2 (12.0-20.0); CO2, Blood 23 mmol/L (21-32); Calcium, Blood 7.2 mg/dL (8.5-10.1); Chloride, Blood 110 mmol/L (98-108); Creatinine, Blood 0.66 mg/dL (0.60-1.20); Globulin, Blood 3.5 g/dL (2.2-4.0); Glomerular Filtration Rate >60 (60-); Glucose, Blood 158 mg/dL (70-99); Magnesium, Blood 1.8 mg/dL (1.6-2.4); Phosphorus, Blood 2.6 mg/dL (2.5-4.9); Potassium, Blood 2.9 mmol/L (3.5-5.5); Sodium, Blood 138 mmol/L (136-145); Total Protein, Blood 4.9 g/dL (6.4-8.2)
--- NOTE | 2021-03-03 06:30 | NUR ---
BLOOD TRANSFUSION STARTED AT 0620. PT TOLERATING WELL SO FAR. PT RESTING IN BED, HOB ELEVATED. RICCARDO DRAIN #1 EMPTIED AGAIN. DRAIN #1 CONTINUES TO HAVE LARGE QUANTITY OF BROWN OUTPUT.
--- NOTE | 2021-03-03 11:30 | NUR ---
REPORT GIVEN TO PCU MARYLU RN, PT TRANSFERRED TO PCU 6.
[2021-03-03 17:02] LABS: Hematocrit 25.8 % (37.0-53.0); Mean Corpuscular HGB Conc 34.9 g/dL (31.5-36.5); Mean Corpuscular Volume 86 fL (80-100); Mean Platelet Volume 9.3 fL (9.1-12.4); NRBC ABSOLUTE 0.02 K/mm3 (0.00-0.02); NRBC Auto 0.1 /100 WBC (0.0-0.2); Platelet Count 501 K/mm3 (150-400); RDW Coefficient Variation 14.2 % (11.7-14.2); RDW Standard Deviation 44.1 fL (35.1-46.3); White Blood Cell Count 31.59 K/mm3 (4.00-11.30)
--- NOTE | 2021-03-03 17:40 | NUR ---
SHIFT NOTE PT ARRIVED FROM SURGICAL FLOOR THIS AFTERNOON. PT HAS RECIEVED A TOTAL OF 2 UNITS OF PRBC THIS SHIFT, HE ARRIVED WITH THE SECOND UNIT TRANSFUSING. PT HAS RECIEVED ZOSYN, AND VANCOMYCIN TODAY. TPN INFUSING WELL AT THIS TIME. RICCARDO DRAINS X3 ARE DRAINING WELL, DRAINAGE APPEARS TO HAVE DECREASED SINCE ARRIVAL. NG IS DRAINING WELL TO LOW INTERMITTENT WALL SUCTION, WITH DARK BROWN DRAINAGE. PT REPORTS MODERATE PAIN STS THAT DILAUDID PROVIDES MODERATE PAIN RELIEF. ABD DISTENDED AND ROUND, HYPOACTIVE BT NOTED IN ALL 4 QUADRANTS. PT A/O X4, ANSWERING QUESTIONS APPROPRIATELY
[2021-03-03 23:38] LABS: Hematocrit 25.2 % (37.0-53.0); Hemoglobin 8.9 g/dL (13.5-17.5); Mean Corpuscular HGB 30.4 pg (26.0-34.0); Mean Corpuscular HGB Conc 35.3 g/dL (31.5-36.5); Mean Corpuscular Volume 86 fL (80-100); Mean Platelet Volume 9.1 fL (9.1-12.4); NRBC ABSOLUTE 0.04 K/mm3 (0.00-0.02); NRBC Auto 0.1 /100 WBC (0.0-0.2); Platelet Count 491 K/mm3 (150-400); RDW Coefficient Variation 14.5 % (11.7-14.2); RDW Standard Deviation 44.9 fL (35.1-46.3); Red Blood Cell Count 2.93 M/mm3 (4.30-5.90); White Blood Cell Count 28.91 K/mm3 (4.00-11.30)
[2021-03-04 05:38] LABS: BASOPHILS ABSOLUTE AUTO 0.06 K/mm3 (0.00-0.23); BASOPHILS PERCENT AUTO 0 % (0-2); EOSINOPHILS ABSOLUTE AUTO 0.04 K/mm3 (0.00-0.68); EOSINOPHILS PERCENT AUTO 0 % (0-6); Hematocrit 24.4 % (37.0-53.0); Hemoglobin 8.5 g/dL (13.5-17.5); IMMATURE GRAN ABSOLUTE AUTO 0.86 K/mm3 (0.00-0.10); IMMATURE GRAN PERCENT AUTO 3 % (0-1); LYMPHOCYTES ABSOLUTE AUTO 1.32 K/mm3 (0.84-5.20); LYMPHOCYTES PERCENT AUTO 5 % (21-46); MONOCYTES ABSOLUTE AUTO 1.28 K/mm3 (0.16-1.47); MONOCYTES PERCENT AUTO 5 % (4-13); Mean Corpuscular HGB 30.4 pg (26.0-34.0); Mean Corpuscular HGB Conc 34.8 g/dL (31.5-36.5); Mean Corpuscular Volume 87 fL (80-100); Mean Platelet Volume 9.3 fL (9.1-12.4); NEUTROPHILS ABSOLUTE AUTO 22.14 K/mm3 (1.96-9.15); NEUTROPHILS PERCENT AUTO 86 % (41-73); NRBC ABSOLUTE 0.02 K/mm3 (0.00-0.02); NRBC Auto 0.1 /100 WBC (0.0-0.2); Platelet Count 460 K/mm3 (150-400); RDW Coefficient Variation 14.4 % (11.7-14.2); RDW Standard Deviation 45.9 fL (35.1-46.3)
[2021-03-04 06:16] LABS: Alanine Aminotransfer (ALT/SGP 19 U/L (12-78); Albumin, Blood 1.3 g/dL (3.4-5.0); Albumin/Globulin Ratio 0.3 (0.8-1.8); Alk Phos 65 U/L (50-136); Anion Gap 6 mmol/L (6-16); Aspartate Aminotrans (AST/SGOT 16 U/L (12-37); Blood Urea Nitrogen 10 mg/dL (8-24); Bun/Creatinine Ratio 17.5 (12.0-20.0); CO2, Blood 26 mmol/L (21-32); Calcium, Blood 7.4 mg/dL (8.5-10.1); Chloride, Blood 104 mmol/L (98-108); Creatinine, Blood 0.57 mg/dL (0.60-1.20); Globulin, Blood 3.8 g/dL (2.2-4.0); Glomerular Filtration Rate >60 (60-); Glucose, Blood 132 mg/dL (70-99); Magnesium, Blood 1.8 mg/dL (1.6-2.4); Phosphorus, Blood 2.8 mg/dL (2.5-4.9); Potassium, Blood 2.5 mmol/L (3.5-5.5); Sodium, Blood 136 mmol/L (136-145); Total Protein, Blood 5.1 g/dL (6.4-8.2); Vancomycin, Trough 12.1 ug/mL (5.0-10.0)
--- NOTE | 2021-03-04 06:20 | NUR ---
SHIFT SUMMARY PT WAS ALERT AND ORIENTED T/O THE SHIFT, QUIET AND SLOW TO RESPOND. NG TUBE TO INTERMITTENT SUCTION T/O THE NIGHT WITH MINIMAL OUTPUT. R SIDE RICCARDO DRAINS HAD DARK BROWN/GREEN DRAINAGE. L SIDE RICCARDO DRAIN HAD SEROSANGUINEOUS FLUID OUTPUT. MIDLINE PICCO DRAIN AND DRESSING HAD NO CHANGE T/O THE NIGHT. VITALS WERE STABLE WITH BP HYPERTENSIVE IN THE 160'S SYSTOLIC DOWN TO 199 SYSTILIC IN AM. HR 100-110'S. O2 SATS >90% WITH PT ON 4 LPM VIA NC. PT HAD A QUIET UNEVENTFUL NIGHT WITH SOME REST, SURGICAL NURSE STATES HE IS MAKING PROGRESS.
[2021-03-04 06:22] LABS: C-REACTIVE PROTEIN, EXT RANGE >19.000 mg/dL (0.000-0.300)
--- NOTE | 2021-03-04 10:35 | NUR ---
DR FITZPATRICK IS CALLED THIS AM PT'S BRIANA DRESSING IS COMPLETELY SATURATED IN GREEN D/C. DR FITZPATRICK GIVES ORDER TO REMOVE THE BRIANA DRAIN AND APPLY GUAZE AND MEDIPORE TAPE, WHICH IS PEROFMRED. THE INCISION WAS REVEALED, IS CLOSED ON ALL BORDERS WITH KJ, WHEN PT COUGHS GREEN D/C IS NOTED TO LEAK FROM THE INCISION. RICCARDO DRAINS DRAINING WELL. DR FITZPATRICK WILL ARRIVE SOON TO ASSESS PT
--- NOTE | 2021-03-04 11:30 | NUR ---
DR FITZPATRICK TO ROOM, DR REMOVED OVER HALF OF THE KJ HOLDING THE INCISION CLOSED, PER DR FITZPATRICK THE FASCIA REMAINS CLOSED, SHE IRRIGATED THE SURGICAL SITE WITH 500ML NS. DR FITZPATRICK ORDERS THAT THE WOUND BE COVERED WITH A WET TO DRY GAUZE DRESSING AND ABD PAD TO COVER WITHOUT TAPE STS TO CHANGE DRESSING TWICE A DAY, MORE IF NEEDED. RICCARDO DRAIN 1 CONTINUES TO DRAIN LARGE AMOUNTS, WILL ASSESS DRAINS MORE FREQUENTLY FOR SIGNS OF BLOCKAGE.
--- NOTE | 2021-03-04 18:36 | NUR ---
SHIFT NOTE THIS AM DR FITZPATRICK WAS IN TO REMOVE KJ FROM ADB INCISION PT HAD GREEN DRAINAGE FROM AROUND THE BRIANA DRAIN. INCISION WAS LEFT OPEN BY DR FITZPATRICK, AND WET TO DRY DRESSINGS WERE APPLIED WITHOUT TAPE PER HER V/O. RICCARDO DRAIN #1 NOTED TO HAVE A LARGE AMT OF DRAINAGE WHILE RICCARDO 2 AND 3 WITH SMALL AMT OF DRAINAGE. PT ALSO RECIEVED OCTRETIDE SQ TO REDUCE BILE PRODUCTION. VSS. PT REAMINS WITH SLIGHTLY FLAT AFFECT, PLEASANT AND COOPERATIVE WITH CARE. PT REPORTS GOOD PAIN CONTROL T/O THE DAY WITH ONE DOSE OF DILAUDID GIVEN TODAY FOR WHARTON. PT REPOSITIOED T/O THE DAY FOR COMFORT, WAS ON BEDPAN ONCE WELL. PT LYING IN BED WATCHING TV AT THIS TIME
[2021-03-05 04:07] LABS: Hematocrit 26.8 % (37.0-53.0); Hemoglobin 9.1 g/dL (13.5-17.5); Mean Corpuscular Volume 88 fL (80-100); Mean Platelet Volume 9.6 fL (9.1-12.4); Platelet Count 529 K/mm3 (150-400); RDW Coefficient Variation 14.1 % (11.7-14.2); Red Blood Cell Count 3.03 M/mm3 (4.30-5.90)
[2021-03-05 04:35] LABS: Alanine Aminotransfer (ALT/SGP 18 U/L (12-78); Albumin, Blood 1.4 g/dL (3.4-5.0); Albumin/Globulin Ratio 0.4 (0.8-1.8); Alk Phos 73 U/L (50-136); Anion Gap 5 mmol/L (6-16); Aspartate Aminotrans (AST/SGOT 13 U/L (12-37); Bilirubin, Total 1.8 mg/dL (0.1-1.0); Blood Urea Nitrogen 10 mg/dL (8-24); Bun/Creatinine Ratio 18.6 (12.0-20.0); CO2, Blood 30 mmol/L (21-32); Calcium, Blood 7.5 mg/dL (8.5-10.1); Chloride, Blood 98 mmol/L (98-108); Creatinine, Blood 0.54 mg/dL (0.60-1.20); Glomerular Filtration Rate >60 (60-); Glucose, Blood 129 mg/dL (70-99); Potassium, Blood 2.4 mmol/L (3.5-5.5); Sodium, Blood 133 mmol/L (136-145); Total Protein, Blood 5.4 g/dL (6.4-8.2)
--- NOTE | 2021-03-05 06:23 | NUR ---
SHIFT SUMMARY PT WAS ALERT, ORIENTED AND COOPERATIVE WITH CARE. ABD INCISION DRESSING SATURATED WITH GREED DRAINAGE, REPLACED WITH CLEAN WET DRESSING AND COVERED. RICCARDO DRAIN #1 HAD ABOUT 150ML OUT T/O THE NIGHT WITH DARK GREEN DRAINAGE, THE OTHER TWO RICCARDO DRAINS HAVING LESS THAN 75ML OUT. NG TUBE HAD LESS THAN 50ML OUT OF CLEAR LIQUID. PT ATE ABOUT 100-200 ML OF ICE CHIPS T/O THE NIGHT. NG TUBE FLUSHED WITH CLEAR/WHITE MUCUS RETURN. PT STATED HAVING SOME PAIN IN HIS ABD INCISION, PRN MEDICATION GIVEN WITH RELIEF OF PAIN. VITALS STABLE WITH BP 150'S SYSTOLIC. HR 80'S IN SINUS RHYTHM. AM LABS SHOWED POTASSIUM OF 2.4, 40MEQ KCL ORDERED. PT HAD A QUIET UNEVENTFUL NIGHT AND STATED HE WAS STARTING TO FEEL BETTER.
--- NOTE | 2021-03-05 18:56 | NUR ---
DR. FITZPATRICK WAS CALLED AT 1530 CONCERNING PT'S PROFUSE BILE DRAINAGE FROM ABD WOUND; MD AWARE; INSTRUCTIONS PROVIDED FOR WOUND MANAGEMENT AND CARE PLANNING
--- NOTE | 2021-03-05 19:24 | NUR ---
PT HAD 2 BM, HAD ABD DRESSING CHANGED 3X, HAD MINIMAL DRAINAGE IN RICCARDO DRAINS, RECEIVED ANALGESIC FOR REPORTED PAIN 1X, RECEIVED RX PER JAN, TOLERATED REPOSITIONING Q2H WELL, AND REPORTS NO ADDITIONAL COMPLAINTS AT THIS TIME.
[2021-03-06 06:17] LABS: Hematocrit 25.9 % (37.0-53.0); Hemoglobin 8.7 g/dL (13.5-17.5); Mean Corpuscular HGB 30.2 pg (26.0-34.0); Mean Corpuscular HGB Conc 33.6 g/dL (31.5-36.5); Mean Corpuscular Volume 90 fL (80-100); Mean Platelet Volume 9.9 fL (9.1-12.4); Platelet Count 571 K/mm3 (150-400); RDW Standard Deviation 45.2 fL (35.1-46.3); Red Blood Cell Count 2.88 M/mm3 (4.30-5.90)
[2021-03-06 06:33] LABS: Anion Gap 6 mmol/L (6-16); Blood Urea Nitrogen 13 mg/dL (8-24); Bun/Creatinine Ratio 23.4 (12.0-20.0); CO2, Blood 29 mmol/L (21-32); Calcium, Blood 7.2 mg/dL (8.5-10.1); Chloride, Blood 98 mmol/L (98-108); Creatinine, Blood 0.56 mg/dL (0.60-1.20); Glomerular Filtration Rate >60 (60-); Glucose, Blood 115 mg/dL (70-99); Potassium, Blood 2.7 mmol/L (3.5-5.5); Sodium, Blood 133 mmol/L (136-145)
--- NOTE | 2021-03-06 07:52 | NUR ---
SHIFT SUMMARY PT HAD LITTLE CHANGE FROM PREVIOUS NOC SHIFT. ABD INCISION DRAINING LARGE AMOUNTS OF GREEN FLUID, TWO DRESSING CHANGHES WITH GAUZ AND ABD PADS FULLY SATURATED. RICCARDO DRAIN 1 DOES NOT HOLD VACCUM. RICCARDO DRAIN 2 HAD NO OUTPUT, RICCARDO 3 HAD MINIMAL OUTPUT. NG TUBE CLEAR/WHITE LIQUID, SMALL AMOUT OF OUTPUT. PT HAD ONE BM THAT WAS LIQUID, MUCUS, GREEN. VITALS WERE STABLE. TEMP UP TO 99.6 THIS AM. PT ON ROOM AIR WITH O2 SATS >90%. PT HAD A QUIET UNEVENTFUL NIGHT.
--- NOTE | 2021-03-06 17:17 | NUR ---
SHIFT ASSESMENT; ASSUMED CARE AT 0700, REPORT FROM CORIE CORONEL. A/A/OX4 DURING SHIFT. WOUND VAC PLACED TODAY BY SURGEON TO ABD. JAVI US DRAINS X3 REMAIN IN PLACE, DRAINING DARK LIQUID FLUID. 2 LOOSE BM TODAY, JAYCOB CARE AND BED CHANGE. MEPILEX TO BUTTOX AND LEFT SHOULDER BLADE I PLACE. PICC LINE TO LEFT UPPER ARM INFUSING. TPN TO RIGHT FA IV AT 85ML/HR CHANGED TODAY. FRIEND VISITING IN AFTERNOON, APPEARS CHEERFUL WITH FRIEND. WILL CONTINUE TO MONITOR AND TREAT UNTIL CHANGE OF SHIFT.
[2021-03-07 04:38] LABS: Anion Gap 6 mmol/L (6-16); Blood Urea Nitrogen 10 mg/dL (8-24); Bun/Creatinine Ratio 18.3 (12.0-20.0); CO2, Blood 28 mmol/L (21-32); Calcium, Blood 6.9 mg/dL (8.5-10.1); Chloride, Blood 99 mmol/L (98-108); Creatinine, Blood 0.55 mg/dL (0.60-1.20); Glomerular Filtration Rate >60 (60-); Glucose, Blood 122 mg/dL (70-99); Magnesium, Blood 1.7 mg/dL (1.6-2.4); Phosphorus, Blood 2.8 mg/dL (2.5-4.9); Potassium, Blood 2.7 mmol/L (3.5-5.5); Sodium, Blood 133 mmol/L (136-145); Triglycerides 154 mg/dL (30-160)
--- NOTE | 2021-03-07 05:51 | NUR ---
CNC SET UP OPERATOR SUMMARY PT'S WOUND VAC HAS CONTINUED TO HAVE GOOD OUTPUT W DARK BILE APPEARING FLUID. RICCARDO DRIANING HAVE HAD GOOD OUTPUT ESPECIALLY DRAIN #1. RICCARDO #3 HAD 60ML OF BLOOD TINGED OUTPUT THIS SHIFT. ALL 3 RICCARDO DRAINS ARE INFLAMED AT SITE OF INSERTION, ALL 3 SITES WERE CLEANED AND TRIPLE ABX OINTMENT WAS APPLIED, COVERED W QUAZE. NG TUBE ON LIS W VERY LITTLE OUTPUT THIS SHIFT. PT DESATURATING MULTPILE TIMES DURING THE SHIFT AND WAS PLACED ON 3L TO MAINTAIN O2 SAT >90%. PT DENIED ANY PAIN OR NAUSEA THIS SHIFT BUT DID REQUEST ATIVAN ONCE FOR ANXIETY. BP ELEVATED W SBP IN THE 150'S. PT HAD LOW GRADE ORAL TEMP AT 100.6 WHICH RESOLVED W 650MG TYLENOL. TPN RUNNIG AT 85ML/HR AND NS AT 150ML HR, BENOIT DRAINING LARGE AMOUNTS OF YELLOW URINE THIS SHIFT. PT HAD 2 SMALL LOOSE BOWEL MOVEMENTS THIS SHIFT. 40 MEQ POTASSIUM ORDER OBTAINED THIS AM FOR K OF 2.7. TELE NSR IN 80-90'S W PVC'S. WCTM.
--- NOTE | 2021-03-07 18:29 | NUR ---
DR. KESSLER WAS CALLED AT 1522 ABOUT LEAKING/LOOSENED WOUND VAC SITE. DR. KESSLER GAVE INSTRUCTION TO REINFORCE LOOSE EDGE WITH TEGADERM AND THAT HE WILL CHANGE THE PROXIMAL DRESSING ON 03/08/2021. DR. KESSLER WAS CALLED AGAIN AT 1626 ABOUT ELEVATED D-DIMER AND THAT ENOXAPARIN HAD NOT BEEN RESTARTED POST SURGERY. ORDERS ENTERED AND ENACTED. PT DENIES ADDITIONAL CONCERNS AT THIS TIME.
--- NOTE | 2021-03-07 18:36 | NUR ---
PT TURNED Q2H AND TOLERATED REPOSITIONING WELL; WOUND VAC SITE LOOSE AND LEAKING; SITE CLEANED AND REINFORCED WITH TEGADERM PER DR. KESSLER; PT HAD 2 MUCILAGENOUS BM VIA BED WHITLEY; ALL DRAINS EMPTIED PER PROTOCOL AND APPEAR INTACT/PATENT; PT HAD CT WITH PE PROTOCOLS; UPDATED TPN HUNG ON FRESH FILTERED LINE; PT ON RA SINCE 0900. PT DENIES ADDITIONAL CONCERNS AT THIS TIME.
--- NOTE | 2021-03-08 06:10 | NUR ---
pt rested well most of the night. refused melatonin but requested ativan for sleep. flat affect. states he is depressed and frustrated with still being in the hospital. minimal output from NG that is to ICS. clear output only. pt taking sips of water and ice chips. x3 ALEXIS drains patent with #1 alexis having minimal serous drainage. wound vac patent to continuous suction with brown output. pt had 1 small loose incontinent stool. urine output good. call light within reach. pt resting with eyes closed. no questions/concerns at this time. bed alarm on
[2021-03-08 06:31] LABS: Magnesium, Blood 1.6 mg/dL (1.6-2.4)
[2021-03-08 07:04] LABS: Anion Gap 6 mmol/L (6-16); Blood Urea Nitrogen 8 mg/dL (8-24); CO2, Blood 26 mmol/L (21-32); Calcium, Blood 6.7 mg/dL (8.5-10.1); Chloride, Blood 101 mmol/L (98-108); Creatinine, Blood 0.54 mg/dL (0.60-1.20); Glomerular Filtration Rate >60 (60-); Glucose, Blood 105 mg/dL (70-99); Potassium, Blood 2.7 mmol/L (3.5-5.5); Sodium, Blood 133 mmol/L (136-145)
--- NOTE | 2021-03-08 20:01 | NUR ---
PT HAD WOUND VAC DRESSING CHANGED BY DR. KESSLER; HAD SBP IN 160'S AND RECEIVED HYDRALAZINE AND HYDROMORPHONE PER MAR; RECEIVED A BED BATH WITH LINENS CHANGE; REPORTED MILD ABDOMINAL PAIN AFTER HYDROMORPHONE ADMINISTRATION; RICCARDO DRAINS PRESENT WITH BILIOUS GREEN DRAINAGE IN 1, [place] DUSKY RED DRAINAGE IN 2, AND CLEAR SEROUS YELLOW DRAINAGE IN 3. PT REPORTS NO ADDITIONAL CONCERNS AT THIS TIME.
[2021-03-09 04:42] LABS: Hematocrit 25.7 % (37.0-53.0); Hemoglobin 8.6 g/dL (13.5-17.5); Mean Corpuscular HGB 29.7 pg (26.0-34.0); Mean Corpuscular HGB Conc 33.5 g/dL (31.5-36.5); Mean Corpuscular Volume 89 fL (80-100); Mean Platelet Volume 9.7 fL (9.1-12.4); Platelet Count 643 K/mm3 (150-400); RDW Coefficient Variation 13.8 % (11.7-14.2); RDW Standard Deviation 44.1 fL (35.1-46.3)
[2021-03-09 05:37] LABS: Anion Gap 6 mmol/L (6-16); Blood Urea Nitrogen 10 mg/dL (8-24); Bun/Creatinine Ratio 17.1 (12.0-20.0); CO2, Blood 25 mmol/L (21-32); Calcium, Blood 7.5 mg/dL (8.5-10.1); Chloride, Blood 102 mmol/L (98-108); Creatinine, Blood 0.58 mg/dL (0.60-1.20); Glomerular Filtration Rate >60 (60-); Glucose, Blood 129 mg/dL (70-99); Magnesium, Blood 1.8 mg/dL (1.6-2.4); Phosphorus, Blood 3.6 mg/dL (2.5-4.9); Potassium, Blood 3.5 mmol/L (3.5-5.5); Sodium, Blood 133 mmol/L (136-145)
--- NOTE | 2021-03-09 06:50 | NUR ---
shift summary pt rested well through night. alert and oriented, abl to make neeeds known. cooperative with plan of care. sats >90% on room air. tele - nsr/stach. uop adequate via johnson - drianing to gravity. no bm. no pain. picc dressing changed. ativan x1 - see emar. call light within reach, bed in lowest position. will continue to monitor.
--- NOTE | 2021-03-09 08:00 | NUR ---
PT LAYING IN BED AWAKE, WATCHING TV, A/OX3, PLEASANT AND COOPERATIVE WITH CARE, FLAT AFFECT, SEEMS DEPRESSED, HE STATES HE FEELS LIKE GIVING UP BECAUSE HE ISN'T GETTING BETTER, HE WAS ASKED IF HE WANTS TO SPEAK WITH SOMEONE, HE DOESN'T AT THIS TIME, LUNGS ARE CLEAR T/O, RESP EVEN AND UNLABORED, NO COUGH NOTED, HRR, TELE IN PLACE RUNNING SR PER MONITOR, SEE STRIP, NO EDEMA NOTED, PPP+1, CAP REFILL <3SEC, VS STABLE, AFEBRILE, IV SITES ARE CLEAR AND PATENT, PICC TO CLARITA AND PIV TO VIKTOR, BT HYPOACTIVE, WOUND VAC DRAIN TO MIDLINE INCISION, THREE RICCARDO DRAINS TO ABD, BENOIT CATH DRAINING CLEAR YELLOW URINE, NG TUBE TO NARE AT DOUGLAS ALMODOVAR, PT IS BED REST, BLADE, CALL LIGHT IN REACH.
--- NOTE | 2021-03-09 14:34 | NUR ---
pt is refusing to participate with therapy today, seems very depressed and shut down but is cooperative with nursing care. call light in reach.
--- NOTE | 2021-03-09 15:16 | NUR ---
pt has been transfered to surgical floor, report given to Anna FONTENOT. left via bed with all belongings.
--- NOTE | 2021-03-09 15:48 | NUR ---
PT ARRIVED TO THE ROOM AT APPROXIMATELY 1510. PT IS ALERT AND ORIENTED AT TIME OF ARRIVAL TO THE ROOM. DRAINS IN PLACE AND TO BULB SUCTION. DRESSINGS AROUND RICCARDO DRAIN CHANGED. WOUND VAC IS DRAINING BUT APPEARS TO HAVE SOME LEAKAGE AROUND THE SPONGE. PT REPORTS PAIN AT 4/10 AND TOLERABLE. WILL CONTINUE TO MONITOR.
--- NOTE | 2021-03-09 18:08 | NUR ---
Met with pt after a request by ROSY Bella. He reports pt has been here since . He was seen by palliative care but was also thought to be leaving, and no one would have foreseen the myriad of issues that would keep the pt here much longer than initially anticipated. Shayne states pt has not been keeping up with therapies, and seems to be "throwing in the towel". Pt did tell me he is discouraged, and the days and nights have all blended together. I offered to trim his mack and wash his hair while we talked and he was agreeable. He talked about his first that left him after joining , and he joined too, but "slipped up". He states he has 2 grown children, but they were small when his asked him to leave, stating "I don't want you around to screw them up". So patient states he left and "never looked back". He then tells me, that first called him out of the blue about a year ago and apologized to him, told him he was the best she had, and she was sorry she was so hard on him. Tears filled his eyes when he talked about this. We continued to talk for a while, with much of the conversation light. He did appear to be feeling better after we had finished our visit, and his lip was again partially visible.
--- NOTE | 2021-03-09 18:32 | NUR ---
SUCTION TO WOUND VAC DRESSING SUCTION TO WOUND VAC DRESSING INCREASED TO 120MMHG. LEAKAGE UNDER WOUND VAC DRESSING APPEARS TO NO LONGER BE AND ISSUE SINCE SUCTION WAS INCREASED.
--- NOTE | 2021-03-09 18:38 | NUR ---
SHIFT SUMMARY PT ARRIVED TO SURGICAL UNIT FROM PCU AT APPROXIMATELY 1510. PT HAS BEEN ALERT AND ORIENTED SINCE ARRIVAL TO THE ROOM. SUCTION TO WOUND VAC DRESSING INCREASED PER DR. KESSLER. NG TUBE TO LOW INTERMITTENT SUCTION. RICCARDO DRAINS INTACT AND DRESSING CHANGED. VSS. WILL MONITOR UNTIL REPORT TO NOC RN.
--- NOTE | 2021-03-10 01:36 | NUR ---
PTS WOUND VAC WAS REPORTED TO BE PREVIOUSLY SX GASTRIC CONTENTS WTIH LOW SX NOTED WITH TRANSFER TO RM 231 FROM PCU.DAY RN REPORTED DR KESSLER AWARE AND DESIRED SX TO BE MAINTAINED AT 120. WOUND VAC WAS MAINTAINING SX,HOWEVER BEGAN LEAKING AND SX OF GASTRIC CONTENTS AGAIN.WITH CHECKING,NOTED LARGE BLOOD CLOT NOTED TO UNDERSIDE OF FOAM.PER ORDERS TO CHANGE, FINISHING TUNNEL OPERATOR AND STAFF RNS GENTLY SEPERATED FOAM FROM CLOT.NOTED TRICKLING AND POOLING OF BLOOD AT LOWER END OF INC.ALSO NOTED R RICCARDO SITES WITH OOZING. TELE NOTED HEART RATE UP TO 130 BUT DID NOT MAINTAIN. PT WITH C/O MILD SOB WHILE WE WERE MOVING HIM SIDE/SIDE FOR LINEN CHANGES AND ABD BINDER.AFTER PT RETURNED TO RESTING, ABD BINDER IN PLACE WITH SALILNE SOAKED GUAZE DIRECTLY TO INC WITH EXTRA FLUFFS AND ABD WITH BINDER FOR PRESSURE.TELE NOTING HEART RATE 100 AND RHYTHMN OF SINUS WITH PACS AND PVCS.BP 118/80 WAS 167/91 AND RATE WAS 86.PT RECEIVED A DOSE OF LOVENOX TONIGHT.NO LABS ORDERED FOR AM. I CALLED DR CASTELLANOS AND ADVISED OF ABOVE. RECEIVED ORDERS FOR LABS AND LOVENOX WAS DCD.DR CASTELLANOS WANTING PT TO WEAR SCDS.
--- NOTE | 2021-03-10 02:02 | NUR ---
LABS DRAWN PER LINE. NO OTHER ACUTE CHANGES.PT ALERT.COOPERATIVE WITH CARE.
[2021-03-10 02:13] LABS: Hematocrit 23.6 % (37.0-53.0); Hemoglobin 7.8 g/dL (13.5-17.5); Mean Corpuscular HGB 29.5 pg (26.0-34.0); Mean Corpuscular HGB Conc 33.1 g/dL (31.5-36.5); Mean Corpuscular Volume 89 fL (80-100); Mean Platelet Volume 9.8 fL (9.1-12.4); Platelet Count 675 K/mm3 (150-400); RDW Coefficient Variation 14.3 % (11.7-14.2); RDW Standard Deviation 45.9 fL (35.1-46.3); Red Blood Cell Count 2.64 M/mm3 (4.30-5.90); White Blood Cell Count 13.72 K/mm3 (4.00-11.30)
[2021-03-10 02:29] LABS: Albumin, Blood 1.4 g/dL (3.4-5.0); Anion Gap 6 mmol/L (6-16); Blood Urea Nitrogen 10 mg/dL (8-24); Bun/Creatinine Ratio 16.8 (12.0-20.0); CO2, Blood 24 mmol/L (21-32); Calcium, Blood 7.2 mg/dL (8.5-10.1); Chloride, Blood 100 mmol/L (98-108); Glomerular Filtration Rate >60 (60-); Glucose, Blood 132 mg/dL (70-99); Magnesium, Blood 1.7 mg/dL (1.6-2.4); Phosphorus, Blood 3.3 mg/dL (2.5-4.9); Potassium, Blood 3.7 mmol/L (3.5-5.5); Sodium, Blood 130 mmol/L (136-145)
[2021-03-10 02:33] LABS: BAND PERCENT MAN 21 % (0-8); BASOPHILS PERCENT MAN 0 % (0-2); EOSINOPHILS ABSOLUTE MAN 0.27 K/mm3 (0.00-0.68); EOSINOPHILS PERCENT MAN 2 % (0-6); LYMPHOCYTES ABSOLUTE MAN 0.54 K/mm3 (0.84-5.20); LYMPHOCYTES PERCENT MAN 4 % (21-46); METAMYELOCYTE ABSOLUTE MAN 0.13 K/mm3 (0.00-0.00); METAMYELOCYTE PERCENT MAN 1 % (0-0); MONOCYTES ABSOLUTE MAN 1.37 K/mm3 (0.16-1.47); MONOCYTES PERCENT MAN 10 % (4-13); MYELOCYTE ABSOLUTE MAN 0.27 K/mm3 (0.00-0.00); MYELOCYTE PERCENT MAN 2 % (0-0); NEUTROPHILS ABSOLUTE MAN 11.11 K/mm3 (1.96-9.15); SEG NEUTROPHILS PERCENT MAN 60 % (41-73); TOTAL CELLS COUNTED 100
--- NOTE | 2021-03-10 02:56 | NUR ---
I CALLED DR CASTELLANOS AND REPORTED LABS. F/U 0800 H/H ORDERED.
[2021-03-10 08:34] LABS: Hematocrit 20.6 % (37.0-53.0); Hemoglobin 6.8 g/dL (13.5-17.5)
--- NOTE | 2021-03-10 08:46 | NUR ---
SUMMARY PENDING 0800 H/H. CONT SOME OOZING AT INC AND R RICCARDO SITE
--- NOTE | 2021-03-10 09:33 | NUR ---
DR. SHARPE IN ROOM AT ABOUT 0900, MADE AWARE OF HGB OF 6.8 WITH 0800 DRAW, ORDER TO TRANSFUSE [address] KESSLER ALSO CALLED AND MADE AWARE OF PT HGB AT ABOUT 0910 WELL NOTIFIED OF EVENTS OF THE NIGHT AND STATUS OF PT MIDLINE WOUND. (SEE NOC RN VANDANA NOTES). NO ACUTE CHANGE IN PT WOUND AT THIS TIME. DR. KESSLER IN ROOM AT ABOUT 0920, SEE NEW ORDERS. PLAN TO REPLACE WOUND VAC WITH BLACK FOAM PER ORDER. PT IS A/O, VSS.. CONTINUING TO MONITOR.
--- NOTE | 2021-03-10 14:41 | NUR ---
1 UNIT PRBC'S INFUSED, COMPLETED AT 1345. PT TOLERATED WELL, VSS. AT ABOUT 1130 WOUND AT MIDLINE ABD DRESSED WITH WOUND VAC USING BLACK FOAM, SET TO CONTINUIOUS SUCTION AT 120 MM MERCURY. SEAL INTACT AND SMALL AMT OF DARK RED DRAINAGE IN TUBING CURRENTLY. WILL CTM.
[2021-03-10 17:40] LABS: Hematocrit 23.5 % (37.0-53.0); Hemoglobin 7.9 g/dL (13.5-17.5)
--- NOTE | 2021-03-10 17:40 | NUR ---
SUMMARY: SEE PREVIOUS NOTES. NO ACUTE CHANGES TODAY. PT HAS HAD LOW GRADE TEMP-OTHERWISE VSS. ABD IS SOFT, TENDER. PT DENIES PASSING GAS. MIDLINE WOUND VAC WNL, PT MEDICATED FOR PAIN AFTER PLACING VAC, HAS OTHERWISE DENIED PAIN. RICCARDO DRAIN AT RLQ APPEARS TO LEAK AROUND SITE AT TIMES, DRAIN SPONGE APPLIED. NO GREEN OUTPUT NOTED IN RICCARDO DRAINS OR WOUND VAC. PT PJ ICE CHIPS, NGT TO LIS AND CLAMPED 1 HR AFTER NUTRITION SERVICES MANAGER. TOTAL OF 150ML DRAINED FROM NGT, DRAINAGE IS REED IN COLOR. PT HAS FLAT AFFECT TODAY AND REFUSED REPOSITIONING AT TIMES, EVEN WITH EDUCATION. PT REPORTS THAT HE "DOESN'T LIKE PILLOWS" AND WOULD RATHER LAY FLAT. AWAITING REPEAT H&H AT THIS TIME. WILL CTM AND REPORT TO ADILIA FONTENOT.
--- NOTE | 2021-03-11 03:56 | NUR ---
SHIFT SUMMARY PT HAS BEEN A/O X4, CALM AND COOPERATIVE, WITH FLAT AFFECT. PT HAS DECLINED MOST REPOSTIONING OVERNIGHT, RESTING WITH HOB ELEVATED. WOUND VAC TO ABD DRAINING DARK RED/BROWN FLUID. RICCARDO DRAINS X3 IN PLACE. NGT TO LIS DRAINING LIGHT BROWN/GREEN FLUID. PICC TO L UPPER ARM WITH CPN AND NS RUNNING OVERNIGHT. BENOIT IN PLACE, PATENT, STAT LOCK ON. PT HAS DENIED PAIN OVERNIGHT. PT RESTING AT THIS TIME, CALL LIGHT IN REACH.
[2021-03-11 05:25] LABS: Hematocrit 21.6 % (37.0-53.0); Hemoglobin 7.1 g/dL (13.5-17.5); Mean Corpuscular HGB 29.6 pg (26.0-34.0); Mean Corpuscular HGB Conc 32.9 g/dL (31.5-36.5); Mean Corpuscular Volume 90 fL (80-100); Mean Platelet Volume 9.8 fL (9.1-12.4); Platelet Count 569 K/mm3 (150-400); RDW Coefficient Variation 14.5 % (11.7-14.2); RDW Standard Deviation 46.9 fL (35.1-46.3); White Blood Cell Count 14.96 K/mm3 (4.00-11.30)
[2021-03-11 06:02] LABS: Anion Gap 6 mmol/L (6-16); Blood Urea Nitrogen 12 mg/dL (8-24); Bun/Creatinine Ratio 18.5 (12.0-20.0); CO2, Blood 24 mmol/L (21-32); Calcium, Blood 7.3 mg/dL (8.5-10.1); Chloride, Blood 101 mmol/L (98-108); Creatinine, Blood 0.65 mg/dL (0.60-1.20); Glomerular Filtration Rate >60 (60-); Glucose, Blood 109 mg/dL (70-99); Potassium, Blood 3.7 mmol/L (3.5-5.5); Sodium, Blood 131 mmol/L (136-145)
[2021-03-11 13:53] LABS: Hematocrit 22.3 % (37.0-53.0); Hemoglobin 7.5 g/dL (13.5-17.5)
--- NOTE | 2021-03-11 16:25 | NUR ---
PT IS A/OX3, PLEASANT AND COOPERATIVE, THE PT APPEARS TO BE BREATHING EASILY AT REST, THE PT TODAY HAD A SMALL BROWN MUCOUSY LIQIUD STOOL, THE PT WAS MEDICATED FOR PAIN AFTER REPOSITIONING AND CHANGING HIS BED, THE PT DECLINED PHYSICAL THERAPY TODAY BECAUSE OF THE TURNIG CAUSING ABD PAIN, THE PT WAS MEDICATED FOR BREAKTHROUGH PAIN, PTS ABD DRAINS AND WOUND VAC REMAIN IN PLACE SECURE AND DRAINING, THE PTS NG TUBE WAS RETAPED, BENOIT CATH COLLECTION BAG REPLACED DUE TO LEAKING, CALL LIGHT IN REACH WILL CONTINUE TO MONITOR AND ASSESS FOR CHANGES
--- NOTE | 2021-03-12 05:05 | NUR ---
SHIFT SUMMARY PT HAS BEEN A/O X4, PLEASANT, AND COOPERATIVE WITH CARE. WOUND VAC TO ABD WNL, FOAM COMPRESSED. RICCARDO DRAINS X3 TO ABD. NGT TO LIS WITH LIGHT BROWN/REED DRAINAGE. BENOIT IN PLACE, STAT LOCK ON, DRAINING YELLOW URINE. PICC TO L ARM WITH CPN INFUSING. PT C/O PAIN X1 AND WAS MED PER ORDERS WITH DILAUDED, WHICH MANAGED PAIN WELL. NO ACUTE CHANGES OVERNIGHT. PT RESTING AT THIS TIME, CALL LIGHT IN REACH.
[2021-03-12 05:43] LABS: Hematocrit 22.9 % (37.0-53.0); Hemoglobin 7.7 g/dL (13.5-17.5); Mean Corpuscular HGB Conc 33.6 g/dL (31.5-36.5); Mean Corpuscular Volume 89 fL (80-100); Mean Platelet Volume 9.6 fL (9.1-12.4); Platelet Count 638 K/mm3 (150-400); RDW Coefficient Variation 14.4 % (11.7-14.2); RDW Standard Deviation 45.5 fL (35.1-46.3); Red Blood Cell Count 2.57 M/mm3 (4.30-5.90); White Blood Cell Count 16.13 K/mm3 (4.00-11.30)
[2021-03-12 06:55] LABS: Anion Gap 7 mmol/L (6-16); Blood Urea Nitrogen 12 mg/dL (8-24); Bun/Creatinine Ratio 20.5 (12.0-20.0); CO2, Blood 26 mmol/L (21-32); Calcium, Blood 7.8 mg/dL (8.5-10.1); Chloride, Blood 102 mmol/L (98-108); Creatinine, Blood 0.59 mg/dL (0.60-1.20); Glomerular Filtration Rate >60 (60-); Glucose, Blood 111 mg/dL (70-99); Potassium, Blood 3.8 mmol/L (3.5-5.5); Sodium, Blood 135 mmol/L (136-145)
--- NOTE | 2021-03-12 12:42 | NUR ---
PT NG TUBE CLAMPED FOR 2 HOURS FOR MEDICATION. TOLERATED WELL. NO REPORT OR NAUSEA OR VOMITING.
--- NOTE | 2021-03-12 16:25 | NUR ---
SHIFT SUMMARY PT AAO X 4. SITTING UP IN BED. PT IS WEAK AND HAS DIFFICULTY MOVING ON HIS OWN. POWERGLIDE IN PLACE IN LEFT UPPER ARM PATENT AND INFUSING. RICCARDO DRAINS X3 ON ABD COMPRESSED AND FUNCTIONING. WOUNDVAC C/D/I AND COMPRESSED AND FUNCTIONG ON MID ABD. CATHETER IS PATENT AND FUNCTIONING. PT USES BEDPAN FOR BOWEL MOVEMENTS. PT NPO AND ON CPN. PT REPORTED SOME PAIN TODAY IN ABD AND TREATED PER EMAR. CALL LIGHT WITHIN REACH.
--- NOTE | 2021-03-13 06:15 | NUR ---
PT IS ALERT, PALE, MEDICATED THIS SHIFT FOR PAIN IN ABD X1. MIDLINE SURGICAL SITE HAS WOUNDVAC ATTATCHED DRAINING DARK RED OUTPUT, RICCARDO DRAINS X3. BENOIT CATH DRAINING GRIFFIN URINE. CPN RUNNING IN CLARITA PICC LINE. NG TUBE TO LIS DRAING YELLOW/GREEN. PT IS NPO WITH THE EXCEPTION OF ICE CHIPS. TELE IN SR WITH PVS AND PAC THIS SHIFT.
--- NOTE | 2021-03-13 17:23 | NUR ---
SUMMARY: NO CHANGE TODAY, VSS, A/O. PT REFUSED OT AND NEEDED MUCH CONVINCING TO REPOSITION IN BED. PT APPEARS DEPRESSED. SURGICAL SITES WNL, WOUND VAC IN PLACE. MINIMAL OUTPUT FROM RICCARDO DRAINS, NOT EMPTIED TODAY. NGT CLAMPED AT 1700, PT ADVANCED TO CLEAR LIQ. DID HAVE SMALL LIQ BROWN BM TODAY. MEDICATED FOR ABD PAIN X2, OTHERWISE NO COMPLAINTS. NO ACUTE EVENTS IN TELE. WILL CTM AND REPORT TO ADILIA FONTENOT.
--- NOTE | 2021-03-13 17:25 | NUR ---
Met with pt for Palliative visit today; he is no longer in PCU, now on the surgica floor, as his condition has been considered stable. He continues to have NG and wound vac in place. His mood is sigificantly improved today. He is more talkative, and is making plans to discharge as soon as the Dr will let him. He states he is in the process of making arrangements for when he discharges. For instance, he is in the processs of hiring a CG to help him in home.
[2021-03-14 04:51] LABS: Triglycerides 173 mg/dL (30-160)
--- NOTE | 2021-03-14 06:42 | NUR ---
SUMMARY PT TOLERATING NG CLAMPED. TAKING SMALL AMNT PO FLUIDS.
--- NOTE | 2021-03-14 15:08 | NUR ---
SWELLING NOTED AT LUE DISTAL TO PICC LINE AT ELBOW. EDEMA IS +4, DR. CARMICHAEL AWARE AND FLUIDS STOPPED. VENOUS DUPLEX SCAN ORDERED FOR LUE. SCAN RULED OUT DVT, PER DR. CARMICHAEL OK TO RESTART FLUIDS/CPN IN PICC LINE. WARM COMPRESS PLACED TO LUE AND ELEVATED. WILL CTM
--- NOTE | 2021-03-14 17:29 | NUR ---
SWELLING NOTED AT LUE DISTAL TO PICC LINE AT ELBOW. EDEMA IS 4+, DR. CARMICHAEL AWARE AND FLUIDS STOPPED. VENOUS DUPLEX SCAN ORDERED FOR LUE. SCAN RULED OUT DVT, PER DR. SMITH DO NOT USE PICC LINE AND OK TO DC AND PLACE POWERGLIDE. WARM COMPRESS PLACED TO LUE AND ELEVATED. WILL CTM.
--- NOTE | 2021-03-14 18:45 | NUR ---
SUMMARY: NO ACUTE CHANGE TODAY. VSS, A/O. SURGICAL SITES WNL. MINIMAL OUT FROM RICCARDO DRAINS, SEE RECORDED OUTPUT. WOUND VAC WNL. NGT IS CLAMPED AT THIS TIME. PT PJ CLEAR LIQ DIET, HAS DENIED N/V. HAS HAD SMALL LIQ BM'S TODAY. CLINAMIX INFUSING THROUGH NEW POWERGLIDE TO VIKTOR. ADILIA FONTENOT TO DC PICC LINE. TELE DC'D AND PT AGREED TO WORK WITH OT TODAY AND SAT AT EDGE OF BED. ALTHOUGH WAS VERY WEAK AND DID GET DIZZY, VSS AND DIZZINESS RESLOVED WHEN PT LAYED BACK DOWN. NO ACUTE SAFETY CONCERNS AT THIS TIME. WILL REPORT TO ADILIA FONTENOT.
--- NOTE | 2021-03-15 06:28 | NUR ---
SHIFT SUMMARY POD14 EX LAP W/ RICCARDO X3 AND MIDLINE [place] PLACEMENT, A/O X4, VSS, TOLERATING DIET, REMAINED IN BED T/O SHIFT DUE TO WEAKNESS, PAIN WELL MANAGED, ONLY C/O PAIN IN ABD AND R NARES R/T NG TUBE WHICH IS CLAMPED SINCE SATURDAY. MINIMAL RICCARDO DRAINAGE DURING SHIFT, NO ACUTE EVENTS THIS SHIFT, PT REPORTS FEELING BETTER TONIGHT COMPARED TO THE LAST FEW DAYS. CALL LIGHT IN REACH, WILL CONTINUE TO MONITOR AND REPORT TO ONCOMING DAY RN.
--- NOTE | 2021-03-15 17:47 | NUR ---
Brief visit made today, Alexandro Ochoa" says he feels "Full of hope" today for the first time in a long time. He has NG tube removed, and is trialing on a liquid diet. He states he feels no nausea, just very hungry. Reminded him to go slow, so he doesn't become nauseated. He agrees, states he's been reminded of that several times already. He is smiling tonight. He states he will likely have CG assistance from [facility] in approximately 1 week. Pt received his dinner tray, so I left him to it. Will make another therapeutic visit tomorrow.
--- NOTE | 2021-03-15 18:39 | NUR ---
SHIFT SUMMARY POD 14 OF AN EXPLORATORY LAPAROTOMY WITH LYSIS OF ADHESION, SMALL BOWEL RESECTION AND SIM-EN-Y GASTROJEJUNOSTOMY. RICCARDO DRAINS X3 AND NG TUBE REMOVED TODAY BY . PT TOLERATED WELL. NO COMPLAINTS OF N/V. WOUNDVAC CHANGED TODAY. PT IS TOLERATING CLEAR LIQUID DIET WELL WITH NO COMPLAINTS OF N/V. PT WAS ABLE TO GET UP TO BEDSIDE COMMODE TODAY WITH 2 PERSON ASSIST AND WALKER. REPORTED SOME DIZZINESS. PT ALSO TOLERATED SITTING IN CHAIR X2 TODAY. PT VERY WILLING TO WORK WITH PHYSICAL THERAPIST AND RN'S TO AMBULATE. VERY MOTIVATED TO GET BETTER.
--- NOTE | 2021-03-16 04:16 | NUR ---
SHIFT SUMMARY PT IS A/O X4. PT RESTING IN BED OVERNIGHT, REPOSITIONING PRN. CLINIMIX INFUSING IN POWERGLIDE OVERNIGHT. PT REQUESTED PAIN MED X1 THIS SHIFT. WOUND VAC IN PLACE TO ABD, FOAM COMPRESSED. PT TOLERATING CLEAR LIQUIDS W/O NAUSEA. BENOIT PATENT, STAT LOCK ON. PT RESTING AT THIS TIME WITH CALL LIGHT IN REACH.
--- NOTE | 2021-03-16 09:55 | NUR ---
assumed care of patient, sitting up in chair, PT in room. Denies needs
--- NOTE | 2021-03-16 19:32 | NUR ---
SHIFT SUMMARY AA0X4, PT WORKED WITH THERAPY TODAY. UP TO CHAIR. PT REPORTS PAIN TOLERABLE DURING SHIFT. REPORTS FEELING MUCH BETTER TODAY, WAS VERY MOTIVATED FOR THERAPY. PASSING GAS AND HAVING LOOSE STOOLS. TOLERATING PO WELL. DENIES N/V. WOUND VAC IN PLACE AND SUCTIONING DURING SHIFT. SPOKE WITH DR. CARMICHAEL THIS AFTERNOON AND RECIEVED ORDERS TO START BLADDER TRAINING. CLAMPED AT 1600 AND UNCLAMMPED AT 1800. PT REPORTS HAVING BLADDER SENSATION DURING THIS TIME. REPORT GIVEN TO ONCOMING SHIFT TO CONTINUE BLADDER TRAINING FOR EVENTUAL REMOVAL OF CATHETER. PT STATES EXCITEMENT AT PROSPECT OF REMOVING CATHETER.
--- NOTE | 2021-03-17 03:52 | NUR ---
SHIFT SUMMARY PT IS A/O X4 OVERNIGHT. REPOSITIONING SELF AND ASSISTED PRN. PT TOLERATING FULL LIQUID DIET W/O NAUSEA OVERNIGHT. BENOIT PATENT, STAT LOCK ON, BLADDER TRAINING OVERNIGHT. WOUND VAC TO ABD INTACT WITH FOAM COMPRESSED. PT MEDICATED FOR PAIN X1 SO FAR THIS SHIFT. PT RESTING AT THIS TIME, CALL LIGHT IN REACH.
[2021-03-17 05:18] LABS: Albumin, Blood 1.8 g/dL (3.4-5.0); Anion Gap 8 mmol/L (6-16); Blood Urea Nitrogen 15 mg/dL (8-24); Bun/Creatinine Ratio 25.1 (12.0-20.0); CO2, Blood 25 mmol/L (21-32); Chloride, Blood 99 mmol/L (98-108); Glomerular Filtration Rate >60 (60-); Glucose, Blood 107 mg/dL (70-99); Phosphorus, Blood 3.7 mg/dL (2.5-4.9); Potassium, Blood 3.5 mmol/L (3.5-5.5); Sodium, Blood 132 mmol/L (136-145)
--- NOTE | 2021-03-17 18:34 | NUR ---
will follow up with patient after discharge and notify [facility]. pt high risk for readmission and failure to thrive.pps scale is 50%
--- NOTE | 2021-03-17 19:11 | NUR ---
SHIFT SUMMARY PT A/O; PLEASANT AND COOPERATIVE WITH CARE. PT CY DC'D TODAY. UP TO THE BSC WITH 1-2 ASSIST. PT AGREED TO NOT USE A BED WHITLEY IN ORDER TO HELP HIM GET UP MORE. PT WANTS TO DC HOME WITH HOME HEALTH AND NOT TO SNF. ADVANCED DIET AND TOLERATING A REGULAR DIET WITH CHOPPED MEATS. MEDICATED FOR PAIN X1 THIS SHIFT. VSS.
--- NOTE | 2021-03-18 07:21 | NUR ---
SUMMARY PT VOIDING WITHOUT DIFF. REQUIRES MINIMAL HELP FOR PLACING URINAL. WOUND VAC CHANGED AND THE BALANCE OF PTS STPLES REMOVED PER ORDER AND PLACED STERI STRIPS.PT REPORTS ADEQUATE PAIN CONTROL.
--- NOTE | 2021-03-18 18:34 | NUR ---
SUMMARY: NO ACUTE CHANGE TODAY. VSS, A/O. PT PJ SMALL AMT REG DIET WITHOUT N/V, SPOKE WITH DIETARY- TO CONTINUE INTRA LIPIDS AT THIS TIME. CONTINUES TO HAVE LIQ BM AND IS PASSING FLATUS. WOUND VAC WNL. PT WALKED IN HALLS WITH THERAPY TODAY AND SAT UP IN CHAIR, IS DECONDITIONED BUT TOLERATES WALKS WELL. PT HAS FLAT AFFECT DESPITE DOING WELL. HAS REPORTED MINIMAL PAIN. NO SAFETY CONCERNS, WILL CTM AND REPORT TO NOC RN
--- NOTE | 2021-03-19 06:32 | NUR ---
SHIFT SUMMARY LYING IN SEMI FOWLERS WITH EYES CLOSED WITH TV ON IN ROOM. PAIN MANAGED PER EMAR. NO FURTHER CHANGES NOTED THIS SHIFT. RIGHT UPPER ARM POWERGLIDE DOES NOT DRAW BACK BLOOD. DENIES FURTHER NEEDS OR WANTS AT THIS TIME. MIDLINE INCISION WITH BRIANA WOUND VAC IN PLACE AT 90MM/HG, SS FLUID NOTED IN LINE. SAFETY MEASURES IN PLACE. WILL CONTINUE TO MONITOR AND ADDRESS CHANGES AND NEEDS THEY OCCUR. WILL GIVE HAND OFF TO ONCOMING SHIFT USING SBAR DURING BEDSIDE REPORT.
--- NOTE | 2021-03-19 17:31 | NUR ---
SUMMARY: NO CHANGE TODAY. VSS, A/O. PT APPETITE SEEMS TO HAVE INCREASED AND IS EATING MORE OF HIS MEALS. PT HAS DENIED N/V. CLINIMIX AND LIPIDS DC'D. SURGICAL SITE AND WOUND VAC WNL. PT HAS DENIED PAIN TODAY. CONTINUES TO BE WEAK, BUT ABLE TO AMBULATE WITH SBA AND FWW. HOME WOUND VAC ORDERED BY [employer], [facility] WHICH WILL NEED TO BE APPLIED TOMORROW AND JACQUELYN'S WOUND VAC REMOVED. FOLLOWING WOUND VAC CHANGE, PT WILL BE ABLE TO DISCHARGE HOME WITH HOME HEALTH PER DR. CARMICHAEL. PT FRIEND "SHINE" HERE TODAY, WHO WILL BE HELPING WITH GORDON'S CARE AND SHE IS AWARE OF PLAN FOR DC HOME TOMORROW AND PLANS TO BE AVALIBLE TO HELP IF NEEDED. SHINE'S NUMBER IS ON PT'S WHITE BOARD. NO ACUTE SAFETY CONCERNS, WILL CTM AND REPORT TO NOC RN.
--- NOTE | 2021-03-20 04:49 | NUR ---
SHIFT SUMMARY LYING IN SEMI FOWLERS WITH EYES OPEN AND TV ON IN ROOM. PAIN MANAGED PER EMAR. BED BATH AND LINEN CHANGE COMPLETED. NO FURTHER CHANGES NOTED THIS SHIFT. RIGHT UPPER ARM POWERGLIDE DOES NOT DRAW BACK BLOOD. DENIES FURTHER NEEDS OR WANTS AT THIS TIME. MIDLINE INCISION WITH BRIANA WOUND VAC IN PLACE AT 90MM/HG, SS FLUID NOTED IN LINE. STATES THAT HE IS READY TO GO HOME TODAY. SAFETY MEASURES IN PLACE. WILL CONTINUE TO MONITOR AND ADDRESS CHANGES AND NEEDS THEY OCCUR. WILL GIVE HAND OFF TO ONCOMING SHIFT USING SBAR DURING BEDSIDE REPORT.
--- NOTE | 2021-03-20 18:36 | NUR ---
SHIFT SUMMARY AAOX4. PT HAS BEEN TOLERATING PO WELL TODAY. DIET CHANGED TO A FINGER FOOD DIET THAT THE PATIENT IS ABLE TO BETTER MANAGE ON HIS OWN. PAIN MANAGED TODAY PER EMAR. PT REPORTS TOLERABLE DURING SHIFT. PASSING GAS VOIDING WELL. WOUND VAC CHANGED TODAY. PLAN IS FOR PATIENT TO DISCHARGE ONCE HE HAS ALL THE EQUIPMENT NECESSARY FOR DISCHARGE.
[2021-03-21 05:16] LABS: Triglycerides 195 mg/dL (30-160)
--- NOTE | 2021-03-21 05:19 | NUR ---
SHIFT SUMMARY: AAOX4. AFEB, RA. PAIN MANAGED W/NORCO. WOUND VAC TO MIDLINE ABD INCISION W/ CONT SUCTION AT 90MMHG. SCANT AMT OF SERO/SANG DRAINAGE. VOIDING IN URINAL. ABD SOFT, TENDER, NON-DISTENDED. BILATEARL ARMS AND HANDS WEAK AND STIFF- SOME DIFFICULTY MOVING OBJECTS TO AND FROM BEDSIDE TABLE. NO ACUTE OVERINGHT EVENTS. WCTM.
[2021-03-21] MEDS ORDERED: Acetaminophen325 M1 PO (16:46)
[2021-03-21] MEDS ORDERED: FENTANYL1 EA10 TOP (16:47)
[2021-03-21] MEDS ORDERED: Norco 5-325 Ta1 EACH PO (16:48)
[2021-03-21] MEDS ORDERED: DOCU100 PO (16:49)
[2021-03-21] MEDS ORDERED: PANT40 PO (16:50)
[2021-03-21] MEDS ORDERED: MIRALAX17 GM PO (16:51)
--- NOTE | 2021-03-21 18:06 | NUR ---
DISCHARGE PT LEFT AT APPROX 1745 VIA WHEELCHAIR WITH FRIEND HSINE. ALL BELONGINGS SENT WITH PATIENT AND CAREGIVER. WOUNDVAC CHANGED TO HOME WOUND VAC PRIOR TO DISCHARGE, ALL WOUND VAC SUPPLIES SENT HOME. LABLED WOUND VAC WITH DATE AND NUMBER OF SPONGES PLACED UNDER DRESSING, PRESSURE SET TO 100. FOAM COMPRESSED. MEDICATIONS ALL FAXED TO [facility] CONFIRMATION OF FAX IN CHART. HARD SCRIPTS SENT WITH PATIENT. EDUCATED PATIENT ON IMPORTANCE OF CONTINUING WITH AMBULATION AND MOVEMENT AND MAINTAINING A SAFE CLUTTER FREE ENVIRONMENT FOR AMBULATION. SPOKE WITH CAREGIVER AND PATIENT REGARDING REDNESS ON COCCYX AND BACK. BOTH ARE AWARE OF THE NEED TO KEEP PRESSURE OFF OF THEM AND MONITOR FOR CHANGES. PT WILL CALL TO SCHEDULE FOLLOW UP APPOINTMENTS. POWERGLIDE REMOVED PRIOR TO DISCHARGE.
[2021-05-12] MEDS ORDERED: CHLO25B PO (17:02)
[2021-05-12] MEDS ORDERED: CREON DR 12,001 EACH PT (17:03)
[2021-05-12] MEDS ORDERED: DOCU LIQUI50 MG/5 ML PO (17:04)
[2021-05-12] MEDS ORDERED: FENTANYL1 EAC7 TOP (17:04)
[2021-05-12] MEDS ORDERED: NAPROXEN250 MG PO (17:05)
[2021-05-12] MEDS ORDERED: HYDHCL25 PO (17:05)
[2021-05-12] MEDS ORDERED: MIRALAX17 GM PO (17:06)
[2021-05-12] MEDS ORDERED: Protonix40 M1 PO (17:06)
[2021-05-12] MEDS ORDERED: SERT20L PO (17:07)
[2021-05-24] MEDS ORDERED: DILAUDID 00.5 MG/0.1 PO (07:51)
[2021-05-24] MEDS ORDERED: Ativan1 MG PO (07:52)
[2021-05-24] MEDS ORDERED: DULCOLAX400 MG/51 PO (07:53)
[2021-05-24] MEDS ORDERED: ONDA4SO PO (07:53)
== END 2021-03-21 17:54 | disposition home or self-care (01) | DRG 853 ==
LOC: ER 09:53 → SURS 15:32 → ICUW 02-09 19:50 → SURS 02-12 13:28 → ICUW 03-01 16:17 → SURS 03-02 17:24 → PCU 03-03 12:05 → ICUE 03-06 17:44 → PCU 03-06 18:14 → SURS 03-09 15:10
PROVIDERS: Anesthesiology; Emergency Medicine; Family Medicine; Internal Medicine; Nurse Practitioner Acute Care; Pharmacist; Surgery; ADMIT Internal Medicine
PROC: 0DU907Z Supplement Duodenum with Autologous Tissue Substitute, Open Approach (ICD-10-PCS; 2021-02-01)
PROC: 02HV33Z Insertion of Infusion Device into Superior Vena Cava, Percutaneous Approach (ICD-10-PCS; 2021-02-01)
PROC: 3E0436Z Introduction of Nutritional Substance into Central Vein, Percutaneous Approach (ICD-10-PCS; 2021-02-01)
PROC: 30233N1 Transfusion of Nonautologous Red Blood Cells into Peripheral Vein, Percutaneous Approach (ICD-10-PCS; principal; 2021-02-26)
PROC: 0D160ZA Bypass Stomach to Jejunum, Open Approach (ICD-10-PCS; 2021-03-01)
PROC: 0W9G0ZZ Drainage of Peritoneal Cavity, Open Approach (ICD-10-PCS; 2021-03-01)
PROC: 0DNW0ZZ Release Peritoneum, Open Approach (ICD-10-PCS; 2021-03-01)
DX: A41.9 Sepsis, unspecified organism (principal); K26.5 Chronic or unspecified duodenal ulcer with perforation; K65.9 Peritonitis, unspecified; R65.21 Severe sepsis with septic shock; K65.1 Peritoneal abscess; J96.01 Acute respiratory failure with hypoxia; R18.8 Other ascites; J93.9 Pneumothorax, unspecified; K56.0 Paralytic ileus; J90 Pleural effusion, not elsewhere classified; E46 Unspecified protein-calorie malnutrition; E87.1 Hypo-osmolality and hyponatremia; J98.11 Atelectasis; K91.840 Postprocedural hemorrhage of a digestive system organ or structure following a digestive system procedure; D62 Acute posthemorrhagic anemia; K91.89 Other postprocedural complications and disorders of digestive system; T81.43XA Infection following a procedure, organ and space surgical site, initial encounter; B37.89 Other sites of candidiasis; D72.825 Bandemia; Z20.822 Contact with and (suspected) exposure to COVID-19; I80.8 Phlebitis and thrombophlebitis of other sites; E87.6 Hypokalemia; K66.0 Peritoneal adhesions (postprocedural) (postinfection); R30.0 Dysuria; I10 Essential (primary) hypertension; I25.10 Atherosclerotic heart disease of native coronary artery without angina pectoris; F31.9 Bipolar disorder, unspecified; F41.9 Anxiety disorder, unspecified; F17.210 Nicotine dependence, cigarettes, uncomplicated; I25.2 Old myocardial infarction; Z88.8 Allergy status to other drugs, medicaments and biological substances; Z79.899 Other long term (current) drug therapy; Z98.890 Other specified postprocedural states
CPT/HCPCS: 0241U; 36415; 36430; 36569; 36600; 49405; 51701; 71045; 71260; 72040; 74018; 74176; 74177; 75989; 80048; 80053; 80069; 80202; 81003; 82042; 82803; 82945; 82947; 83605; 83615; 83690; 83735; 83880; 83986; 84100; 84132; 84157; 84443; 84478; 84484; 85014; 85018; 85025; 85027; 85379; 85610; 86140; 86850; 86900; 86901; 86923; 87040; 87070; 87075; 87102; 87205; 88307; 89051; 93005; 93010; 93971; 94762; 96374-59; 96375-59; 97110; 97116; 97163; 97166; 97530; 97535; 99285-25; A9270; C1751; C9113; J0360; J1100; J1170; J1200; J1450; J1650; J1885; J1940; J2060; J2248; J2250; J2354; J2370; J2405; J2543; J2704; J2765; J3010; J3370; J3411; J3475; J3480; J7030; J7040; J7042; J7050; J7060; J7120; P9016; P9046; Q9967

== ENCOUNTER 2021-03-23 14:37 | Emergency (ER) | payer OTHER ==
[~2021-03-23] VITALS: Ht 180.3 cm; Wt 59.0 kg
[~2021-03-23 14:37] MED LIST changes: +Acetaminophen325 M1 PO; +Adalat/Procardi10 MG; +Atarax10 MG PO; +B-1100 M1 PO; +BACL10 PO; +CHLO25B PO; +DOCU100 PO; +FENTANYL1 EA10 TOP; +Hydroxyzine HCl50 MG PO; +MELATONIN5 M1 PO; +MIRALAX17 GM PO; +NAPROXEN250 M1 PO; +NICO21TP TOP; +NIFE30ER PO; +Norco 5-325 Ta1 EACH PO; +PANT40 PO; +TRAZ100 PO; +TRAZ50 PO
[2021-03-23 15:32] LABS: BASOPHILS ABSOLUTE AUTO 0.02 K/mm3 (0.00-0.23); BASOPHILS PERCENT AUTO 0 % (0-2); EOSINOPHILS ABSOLUTE AUTO 0.03 K/mm3 (0.00-0.68); EOSINOPHILS PERCENT AUTO 0 % (0-6); Hematocrit 30.4 % (37.0-53.0); Hemoglobin 9.5 g/dL (13.5-17.5); IMMATURE GRAN ABSOLUTE AUTO 0.08 K/mm3 (0.00-0.10); IMMATURE GRAN PERCENT AUTO 1 % (0-1); LYMPHOCYTES ABSOLUTE AUTO 2.03 K/mm3 (0.84-5.20); LYMPHOCYTES PERCENT AUTO 18 % (21-46); MONOCYTES PERCENT AUTO 5 % (4-13); Mean Corpuscular HGB 28.9 pg (26.0-34.0); Mean Corpuscular HGB Conc 31.3 g/dL (31.5-36.5); Mean Corpuscular Volume 92 fL (80-100); NEUTROPHILS ABSOLUTE AUTO 8.57 K/mm3 (1.96-9.15); NEUTROPHILS PERCENT AUTO 76 % (41-73); Platelet Count 658 K/mm3 (150-400); RDW Coefficient Variation 15.4 % (11.7-14.2); RDW Standard Deviation 52.7 fL (35.1-46.3); Red Blood Cell Count 3.29 M/mm3 (4.30-5.90); White Blood Cell Count 11.33 K/mm3 (4.00-11.30)
[2021-03-23 15:48] LABS: Alanine Aminotransfer (ALT/SGP 16 U/L (12-78); Albumin, Blood 2.5 g/dL (3.4-5.0); Albumin/Globulin Ratio 0.4 (0.8-1.8); Alk Phos 131 U/L (50-136); Anion Gap 10 mmol/L (6-16); Aspartate Aminotrans (AST/SGOT 16 U/L (12-37); Bilirubin, Total 0.8 mg/dL (0.1-1.0); Blood Urea Nitrogen 8 mg/dL (8-24); Bun/Creatinine Ratio 12.7 (12.0-20.0); CO2, Blood 26 mmol/L (21-32); Calcium, Blood 9.3 mg/dL (8.5-10.1); Chloride, Blood 97 mmol/L (98-108); Creatinine, Blood 0.63 mg/dL (0.60-1.20); Globulin, Blood 5.7 g/dL (2.2-4.0); Glomerular Filtration Rate >60 (60-); Glucose, Blood 98 mg/dL (70-99); Potassium, Blood 3.7 mmol/L (3.5-5.5); Sodium, Blood 133 mmol/L (136-145); Total Protein, Blood 8.2 g/dL (6.4-8.2)
[2021-03-23 16:47] LABS: Source, Urine Voided
[2021-03-23 16:54] LABS: Appearance, Urine Clear (Clear); Bilirubin, Urine Neg (Neg); Blood, Urine Neg (Neg); Color, Urine Yellow (P-Yellow); Glucose Qualitative, Urine Neg (Neg); Ketones, Urine 3+ (Neg); Leukocyte Esterase, Urine Neg (Neg); Nitrite, Urine Neg (Neg); Protein, Urine 1+ (Neg); Urobilinogen, Urine NORM (Normal)
[2021-05-12] MEDS ORDERED: CHLO25B PO (17:02)
[2021-05-12] MEDS ORDERED: CREON DR 12,001 EACH PT (17:03)
[2021-05-12] MEDS ORDERED: FENTANYL1 EAC7 TOP (17:04)
[2021-05-12] MEDS ORDERED: DOCU LIQUI50 MG/5 ML PO (17:04)
[2021-05-12] MEDS ORDERED: NAPROXEN250 MG PO (17:05)
[2021-05-12] MEDS ORDERED: HYDHCL25 PO (17:05)
[2021-05-12] MEDS ORDERED: Protonix40 M1 PO (17:06)
[2021-05-12] MEDS ORDERED: MIRALAX17 GM PO (17:06)
[2021-05-12] MEDS ORDERED: SERT20L PO (17:07)
[2021-05-24] MEDS ORDERED: DILAUDID 00.5 MG/0.1 PO (07:51)
[2021-05-24] MEDS ORDERED: Ativan1 MG PO (07:52)
[2021-05-24] MEDS ORDERED: DULCOLAX400 MG/51 PO (07:53)
[2021-05-24] MEDS ORDERED: ONDA4SO PO (07:53)
== END 2021-03-23 19:04 | disposition home or self-care (01) ==
LOC: ER 14:37
PROVIDERS: Emergency Medicine
DX: E86.0 Dehydration (principal); I10 Essential (primary) hypertension; I25.2 Old myocardial infarction; I25.10 Atherosclerotic heart disease of native coronary artery without angina pectoris; F17.210 Nicotine dependence, cigarettes, uncomplicated; Z79.899 Other long term (current) drug therapy; Z88.8 Allergy status to other drugs, medicaments and biological substances
CPT/HCPCS: 36415; 80053; 84484; 85025; 93005; 93010; 99284-25; J7120

== ENCOUNTER 2021-03-29 15:01 | Inpatient (IN) | payer OTHER ==
[~2021-03-29] VITALS: Ht 180.3 cm; Wt 52.0 kg
[2021-03-29 15:46] LABS: BASOPHILS ABSOLUTE AUTO 0.04 K/mm3 (0.00-0.23); BASOPHILS PERCENT AUTO 0 % (0-2); EOSINOPHILS ABSOLUTE AUTO 0.06 K/mm3 (0.00-0.68); EOSINOPHILS PERCENT AUTO 0 % (0-6); Hemoglobin 10.8 g/dL (13.5-17.5); IMMATURE GRAN ABSOLUTE AUTO 0.08 K/mm3 (0.00-0.10); IMMATURE GRAN PERCENT AUTO 1 % (0-1); LYMPHOCYTES ABSOLUTE AUTO 2.75 K/mm3 (0.84-5.20); LYMPHOCYTES PERCENT AUTO 20 % (21-46); MONOCYTES ABSOLUTE AUTO 0.94 K/mm3 (0.16-1.47); MONOCYTES PERCENT AUTO 7 % (4-13); Mean Corpuscular HGB 29.6 pg (26.0-34.0); Mean Corpuscular HGB Conc 31.8 g/dL (31.5-36.5); Mean Corpuscular Volume 93 fL (80-100); NEUTROPHILS ABSOLUTE AUTO 10.15 K/mm3 (1.96-9.15); NEUTROPHILS PERCENT AUTO 72 % (41-73); Platelet Count 656 K/mm3 (150-400); RDW Coefficient Variation 15.6 % (11.7-14.2); RDW Standard Deviation 53.3 fL (35.1-46.3); Red Blood Cell Count 3.65 M/mm3 (4.30-5.90); White Blood Cell Count 14.02 K/mm3 (4.00-11.30)
[2021-03-29 15:59] LABS: Alanine Aminotransfer (ALT/SGP 15 U/L (12-78); Albumin, Blood 2.7 g/dL (3.4-5.0); Albumin/Globulin Ratio 0.5 (0.8-1.8); Alk Phos 118 U/L (50-136); Anion Gap 12 mmol/L (6-16); Aspartate Aminotrans (AST/SGOT 21 U/L (12-37); Bilirubin, Total 0.9 mg/dL (0.1-1.0); Blood Urea Nitrogen 10 mg/dL (8-24); Bun/Creatinine Ratio 16.9 (12.0-20.0); CO2, Blood 24 mmol/L (21-32); Calcium, Blood 9.8 mg/dL (8.5-10.1); Chloride, Blood 97 mmol/L (98-108); Creatinine, Blood 0.59 mg/dL (0.60-1.20); Globulin, Blood 5.7 g/dL (2.2-4.0); Glomerular Filtration Rate >60 (60-); Glucose, Blood 103 mg/dL (70-99); Potassium, Blood 3.6 mmol/L (3.5-5.5); Sodium, Blood 133 mmol/L (136-145); Total Protein, Blood 8.4 g/dL (6.4-8.2); Troponin I <0.015 ng/mL (0.000-0.040)
[2021-03-29 19:47] LABS: Source, Urine Clean Catch
[2021-03-29 19:57] LABS: Appearance, Urine Clear (Clear); Blood, Urine Neg (Neg); Color, Urine Amber (P-Yellow); Glucose Qualitative, Urine Neg (Neg); Ketones, Urine 4+ (Neg); Leukocyte Esterase, Urine 1+ (Neg); Nitrite, Urine Neg (Neg); Protein, Urine 2+ (Neg); Specific Gravity, Urine 1.015 (1.003-1.022); Urobilinogen, Urine 2+ (Normal)
[2021-03-29 20:06] LABS: Bilirubin, Urine 1+ (Neg)
[2021-03-29 20:08] LABS: Red Blood Cells, Urine Not Seen /hpf (0-2); Squamous Epithelial Cells Not Seen /hpf (Few); WBC Cast Rare /lpf (0)
[2021-03-29 20:09] LABS: Bacteria Many /hpf
[2021-03-30 05:01] LABS: Hematocrit 29.3 % (37.0-53.0); Hemoglobin 9.4 g/dL (13.5-17.5); Mean Corpuscular HGB 29.3 pg (26.0-34.0); Mean Corpuscular HGB Conc 32.1 g/dL (31.5-36.5); Mean Corpuscular Volume 91 fL (80-100); Mean Platelet Volume 9.2 fL (9.1-12.4); Platelet Count 565 K/mm3 (150-400); RDW Coefficient Variation 15.7 % (11.7-14.2); RDW Standard Deviation 51.9 fL (35.1-46.3); Red Blood Cell Count 3.21 M/mm3 (4.30-5.90); White Blood Cell Count 10.96 K/mm3 (4.00-11.30)
[2021-03-30 05:24] LABS: Anion Gap 12 mmol/L (6-16); Blood Urea Nitrogen 11 mg/dL (8-24); Bun/Creatinine Ratio 16.2 (12.0-20.0); CO2, Blood 25 mmol/L (21-32); Calcium, Blood 8.9 mg/dL (8.5-10.1); Chloride, Blood 97 mmol/L (98-108); Creatinine, Blood 0.68 mg/dL (0.60-1.20); Glomerular Filtration Rate >60 (60-); Glucose, Blood 80 mg/dL (70-99); Potassium, Blood 2.9 mmol/L (3.5-5.5); Sodium, Blood 134 mmol/L (136-145)
--- NOTE | 2021-03-30 08:08 | NUR ---
SHIFT SUMMARY: GORDON IS A&OX4. VSS, NO ACUTE EVENTS OVERNIGHT. DRESSING TO ABDOMEN AND MEPILEX PLACED TO COCCYX ON ADMIT. SUCTION PROVIDED AND EDUCATED TO ASSIST GORDON IN CLEARING HIS THROAT AFTER COUGHING. HE USES THE CALL LIGHT APPROPRIATELY. HE STATES THAT HE HAS BEEN HAVING DIFFICULTY SWALLOWING AND THAT HE IS UNABLE TO USE A STRAW. HE IS LYING IN BED WITH THE CALL LIGHT IN REACH. HE HAS BEEN USING THE URINAL WITHOUT DIFFICULTY. ATTENDS IN PLACE, HE STATES THAT HE HAS BEEN HAVING LIQUID STOOL. REPORT GIVEN TO DAY SHIFT RN.
--- NOTE | 2021-03-30 15:48 | NUR ---
REINITIATED WOUND VAC THERAPY PER DR NUNEZ ORDERS. SET TO 120 THIS MACHINE DOES NOT SET TO 125. FOAM COMPRESSED, PT TOLERATED WELL.
--- NOTE | 2021-03-30 17:13 | NUR ---
SHIFT SUMMARY PT VITAL SIGNS STABLE DURING THIS SHIFT. VOIDING WELL, SOME INCONTINENCE NOTED. ABDOMINAL WOUND ASSESSED AND DRESSING CHANGED WITH DR BROOKS IN AM, THEN CHANGED AGAIN WITH Ernesto CASTILLO AND PLACED A WOUND VAC PER DR POON. PT BEING TREATED FOR PAIN PER EMAR. PT WORKED WITH PHYSICAL AND OCCUPATIONAL THERAPY TODAY, PT STATES HE IS UNABLE TO USE HIS HANDS DUE TO NUMBNESS AND TINGLING, BUT WAS ABLE TO FEED HIMSELF SOME AND HOLD THE BEVERAGE TO GIVE HIMSELF FLUID. PT HAS BEEN CRYING ON AN OFF DURING SHIFT, USING POSITIVE COMMUNICATION WITH HIM SEEMS TO HELP. WILL REPORT TO ONCOMING RN.
--- NOTE | 2021-03-30 17:15 | NUR ---
Spiritual care note: Mr. Sahu was tearful throughout our visit. He expresses great remorse for refusing treatment/PT/OT during his last hospitalization. He tells me that "going home was a mistake." His significant other for many years, Edna, is battling lung cancer and other health issues. Edna is unable to care for Gualberto when he goes home. He states that he is afraid he is dying. He does not want to . He told me his life story, including his estrangement from his children. He admits he made many poor choices and hurt "a lot of peole." He was raised Mormonism, and tried LDS. He became disillusioned with all formal yarsanism and beleives he will be punished for abandoning tenriism. We spoke at length about this. Gentle spiritual direction and counseling psychologist was well received. Gualberto will benefit from continued counseling psychologist. I was tasked by admit trigger to speak to Gualberto about his full code status and formalizing Pat as his MPOA. This did not appear to be the right time for this conversation. Gualberto was far too distraught today. That said, he did states that he wants everything done to prevent . Gualberto appears quite frail. Prayer provided at conclusion of visit and Gualberto showed signs of better spirits. Monkey Trainer services will remain available.
--- NOTE | 2021-03-30 18:45 | NUR ---
RECEIVED REPORT AND ASSUMED CARE OF PT. HE IS LYING QUIETLY IN BED WITH HIS EYES CLOSED AND EVEN, UNLABORED RESPIRATIONS. NARENDRA.
[2021-03-31 04:16] LABS: Hematocrit 26.6 % (37.0-53.0); Hemoglobin 8.6 g/dL (13.5-17.5); Mean Corpuscular HGB 29.5 pg (26.0-34.0); Mean Corpuscular HGB Conc 32.3 g/dL (31.5-36.5); Mean Corpuscular Volume 91 fL (80-100); Platelet Count 496 K/mm3 (150-400); RDW Coefficient Variation 15.6 % (11.7-14.2); RDW Standard Deviation 52.3 fL (35.1-46.3); Red Blood Cell Count 2.92 M/mm3 (4.30-5.90); White Blood Cell Count 9.75 K/mm3 (4.00-11.30)
[2021-03-31 04:32] LABS: Magnesium, Blood 1.5 mg/dL (1.6-2.4)
[2021-03-31 04:33] LABS: Anion Gap 7 mmol/L (6-16); Blood Urea Nitrogen 8 mg/dL (8-24); Bun/Creatinine Ratio 13.8 (12.0-20.0); CO2, Blood 26 mmol/L (21-32); Calcium, Blood 8.6 mg/dL (8.5-10.1); Chloride, Blood 101 mmol/L (98-108); Creatinine, Blood 0.58 mg/dL (0.60-1.20); Glomerular Filtration Rate >60 (60-); Glucose, Blood 91 mg/dL (70-99); Potassium, Blood 3.2 mmol/L (3.5-5.5); Sodium, Blood 134 mmol/L (136-145)
--- NOTE | 2021-03-31 06:00 | NUR ---
SHIFT SUMMARY: GORDON AROUSES EASILY AND RESPONDS APPROPRIATELY. HE REPORTED FEELING QUITE TIRED AFTER WORKING WITH PHYSICAL THERAPY YESTERDAY. HE HAS RESTED QUIETLY WITH HIS EYES CLOSED FOR THE MAJORITY OF THE SHIFT. ATTENDS IN PLACE, HE DID HAVE AN EPISODE OF LOOSE STOOL. HE IS USING THE URINAL WITH MINIMIAL ASSISTANCE. HE IS LYING IN BED WITH THE CALL LIGHT IN REACH. WILL REPORT TO DAY SHIFT RN.
--- NOTE | 2021-03-31 11:19 | NUR ---
TODAY 03/31/21 PATIENT HAD A SMALL LEAK IN HIS WOUND VAC. THIS WOUND VAC WAS REPLACED BY THIS RN AND SYMONE FONTENOT ON UNIT. FOAM IS NOW COMPRESSED AND HAS A TIGHT SEAL AROUND IT. CHANGED PATIENTS GOWN AND REPOSITIONED HIM. CALL LIGHT WITHIN REACH.
--- NOTE | 2021-03-31 14:48 | NUR ---
TRIED CALLING DR. LOFTON TO CHANGE THE ROUTE OF MEDICATION ADMINISTRATION FOR THIS PATIENT AT AROUND 12 TODAY. THIS NURSE HAS NOT RECIEVED A CALL BACK. THIS NURSE TRIED AGAIN AT 14:40 AND STILL HAS NOT CALLED BACK. WILL CONTINUE TO TRY AND GET AHOLD OF HIM.
--- NOTE | 2021-03-31 15:00 | NUR ---
SHIFT SUMMARY: WOUND VAC MALFUNCTION PATIENT IS ALERT AND ORIENTED X4. VS ARE WNL AND IS ON RA. PATIENT DENIES PAIN AT THIS TIME BUT IS AWARE HE HAS PRN PAIN MEDICATIONS. PATIENT MIDLINE ABD WOUND VAC WAS CHANGED DURING THIS SHIFT SINCE IT LEAKED. IT IS NOW C/D/I AND FOAM IS COMPRESSED. PATIENT WAS EVALUATED BY SPEECH THERAPY AND IS NOW ON FULL LIQUID DIET. HE IS TOLERATING PO INTAKE AND IS VOIDING. HE HAS HAD TWO BM'S TODAY THAT WERE UNFORMED AND REED COLORED. PATIENT ALSO WORKED WITH PT/OT TODAY. HIS PILLS ARE TO BE CRUSHED IN APPLESAUCE OR BE LIQUID. STILL WAITING TO HEAR BACK FROM DR. LOFTON TO HAVE THE MEDICATION ROUTE CHANGED. MEPLIEX IS PLACED ON HIS BOTTOM TO PREVENT BREAKDOWN. CALL LIGHT IS WITHIN REACH. HE IS CURRENTLY LAYING IN BED WATCHING TV. CALLS APPROPRIATELY. THE PLAN IS TO BE DISCHARGED TO A SNF WHEN AVAILABLE AND TO CONTINUE RECIEVING ABX IV.
--- NOTE | 2021-03-31 15:27 | NUR ---
JUST NOW WAS ABLE TO TALK TO DR. LOFTON APYS-VB-OWPI AND WAS OKAY WITH CHANGING HIS MEDICATIONS TO LIQUIDS.
--- NOTE | 2021-04-01 08:20 | NUR ---
SUMMARY PT WOUND VAC CONTINUED SX INTACT.PT REQUESTED BENADRYL FOR SLEEP LAST NIGHT AND REPORTS SLEPT WELL.
[2021-04-01 08:59] LABS: Anion Gap 6 mmol/L (6-16); Blood Urea Nitrogen 5 mg/dL (8-24); Bun/Creatinine Ratio 8.5 (12.0-20.0); CO2, Blood 28 mmol/L (21-32); Calcium, Blood 8.3 mg/dL (8.5-10.1); Chloride, Blood 102 mmol/L (98-108); Creatinine, Blood 0.59 mg/dL (0.60-1.20); Glomerular Filtration Rate >60 (60-); Glucose, Blood 93 mg/dL (70-99); Magnesium, Blood 1.6 mg/dL (1.6-2.4); Potassium, Blood 3.3 mmol/L (3.5-5.5); Sodium, Blood 136 mmol/L (136-145)
--- NOTE | 2021-04-01 16:12 | NUR ---
PT REPORTED HAVING DIFFICULTY SLEEPING AT NIGHT. STATED BENADRYL DOES NOT HELP. HAS TAKEN MELATONIN IN PAST. DISCUSSED W/DR LOFTON, STATED WILL REVIEW.
--- NOTE | 2021-04-01 18:06 | NUR ---
SHIFT SUMMARY A&OX4. PT WORKED WITH PHYSICAL THERAPY THIS AM. [place] [facility] [place], FWW AND GAITBELT. TOLERATING FULL LIQUID DIET. PT TAKING PILLS WHOLE IN APPLESAUCE. WOUND VAC C/D/I AND COMPRESSED DRAINING SEROSANGUINOUS FLUID. NO ACUTE CHANGES. PT RESTING IN HOSPITAL BED. CALL LIGHT IN REACH.
--- NOTE | 2021-04-01 23:05 | NUR ---
WOND VAC WITH THICK BROWN DRNG AROUND EDGES OF FOAM.REMOVED WOUND VAC AND NOTED NECROTIC APPEARING STRANDS OF TISSUE INSIDE CAVERN OF WOUND.CLEANSED WOUND AND PLACED WET/DRY DRESSING.WILL REQUEST TO BE CHECKED BY SURGERY TOMORROW WITH ROUNDS.
[2021-04-02 05:12] LABS: Anion Gap 4 mmol/L (6-16); Blood Urea Nitrogen 5 mg/dL (8-24); CO2, Blood 27 mmol/L (21-32); Calcium, Blood 8.4 mg/dL (8.5-10.1); Chloride, Blood 102 mmol/L (98-108); Creatinine, Blood 0.56 mg/dL (0.60-1.20); Glomerular Filtration Rate >60 (60-); Glucose, Blood 84 mg/dL (70-99); Magnesium, Blood 1.8 mg/dL (1.6-2.4); Potassium, Blood 3.8 mmol/L (3.5-5.5); Sodium, Blood 133 mmol/L (136-145)
--- NOTE | 2021-04-02 07:26 | NUR ---
SUMMARY PT REQUESTED SLEEPER AND WAS GIVEN PER ORDER RECEIVED.PT REPORTS SLEPT WELL. PLEASED.
--- NOTE | 2021-04-02 11:35 | NUR ---
DR FITZPATRICK IN TO SEE PT. EXAMINED WOUND AND CLEANED OUT. PLACED WET TO DRY DRESSING. PT TOLERATED WELL.
--- NOTE | 2021-04-02 14:00 | NUR ---
Initial palliative care consult: Grant is well known to the palliative care team from a recent lengthy hospital stay. He recently had a perforated ulcer with a repair, leak, abcess formation and a second surgery. He was discharged home on 03/21/21. He doesn't have any assistance from his roommate at home and was readmitted on 03/29/21 with a wound infection. Grant has a history of HTN, W[place] x 2, depression with SI, bipolar disorder, CAD and anxiety. He was recently discharged from [facility] on 03/21/21. Grant is tearful off and on during our coversation. He states that he has a roommate, Edna, who is not willing or able to assist him with any personal care or web production assistant. He is thinking of asking the roommate Edna to leave as they have not been getting along. He has a friend Racheal who helps out when she can. He appears quite down during our conversation. He feels hopeless because there isn't a current plan in place for discharge. He is a however the [facility] did not have any rehab beds available as of 03/31/21. He states his income is $1000/month and he tells me that "I make too much to qualify for help." ROMULO and Racheal have been trying to help with making discharge arrangements. Grant reports he is overwhelmed by the steps he must take to make sure he has the financial means in place to get to rehab and ultimately get home. He is also worried about the "$500,000 bill I'm going to have from this hospital." Emotional support provided. Reassured him that the hospital has options available for those who would have a difficult time paying their large hosptial bills. He states that he knows he needs to work with PT/OT but he has been resistant to it as he feels so weak. We discussed how weak someone can become with a hosptialization and how to gain back that strength. Encouraged him to focus on a goal. He states his goal is to be able to go back home to live with his three cats. Encouraged him to focus on that goal when he isn't wanting to get OOB with PT. He does admit that each time he gets up out of bed it does become a little easier. Encouraged taking small steps to get to his goal. He voices worry over income, discharge plan, his uncertainty of his razia, estrangement from his family and the problems with his roommate. Offered to have the laundrette owner come visit him. He declined a laundrette owner visit today. PC will continue to follow for therapeutic visits and symptom management prn. Chart reviewed. CM and his friend Racheal are helping to assist with a discharge plan. Nursing updated.
--- NOTE | 2021-04-02 18:29 | NUR ---
SHIFT SUMMARY A&OX4. [place] [facility] [place], 1 PERSON ASSIST AND GAIT BELT. PT WALKED HALLS ONCE DURING SHIFT. DR FITZPATRICK SAW PT IN AM, PERFORMED WOUND DEBRIDEMENT. WET TO DRY WOUND CARE. NYSTATIN ADMINISTERED PRN PER EMAR FOR ORAL THRUSH. IV ABX ADMINISTERED. TOLERATING LIQUID DIET. TAKING PILLS WHOLE IN APPLESAUCE. PT RESTING IN BED. CALL LIGHT IN REACH.
--- NOTE | 2021-04-03 06:54 | NUR ---
SHIFT SUMMARY LYING IN SEMI FOWLERS WITH EYES CLOSED, HAS RESTED OFF AND ON THIS SHIFT. AAO X4, MCCRARY, FOLLOWS ALL COMMANDS. GIVEN PRN PAIN MEDS PER EMAR. RIGHT AC SL PIV IS PATENT, FLUSHES WITH EASE. RIGHT FA 22G SL PIV IS PATENT, FLUSHES WITH EASE. DRESSING CHANGE TO MIDLINE ABD WOULD COMPLETED PER MD ORDERS, THICK, FOUL SMELLING, PURULENT, DARK MORRIS/BROWN FLUID NOTED. NO SIGNIFICANT CHANGES NOTED THIS SHIFT. DENIES PAIN, DISCOMFORT, OR FURTHER NEEDS AT THIS TIME. SAFETY MEASURES IN PLACE. WILL CONTINUE TO MONITOR AND ADDRESS CHANGES AND NEEDS THEY ARISE. WILL GIVE HAND OFF TO ONCOMING SHIFT USING SBAR DURING BEDSIDE REPORT.
--- NOTE | 2021-04-03 10:05 | NUR ---
[id number]- received report from previous shift CORIE Evans, pt sleeping in bed, bed in lowest position, bed rails up, call light within reach. 0994-Dr Fernandes roundheather on pt. pt has expressed his wish to change code status to DNR, that he does not want heroic measures. Pt states understanding and orders received for code status change
--- NOTE | 2021-04-03 13:26 | NUR ---
INSPECTOR BOILER CALLED AND REPORTED PER PROTOCOL THE PATIENT CAN BE REMOVED FROM TELE FOR NO EVENTS IN [address] LOFTON WHO GAVE ORDERS TO DC TELE.
--- NOTE | 2021-04-03 15:25 | NUR ---
per pt's request, updated next and kin and person to notify in pt's chart with admitting assistance. person to notify, Laurence Alford, called for update on pt's condition. She related to this RN pt has been treated for depression before; due to his recent hospital stays, he has not been able to get in to see [facility] provider. WIll notify hospitalist.
--- NOTE | 2021-04-03 18:16 | NUR ---
SHIFT SUMMARY: VSS, NO ACUTE CHANGES, DC'D TELEMETRY PER ORDERS. PT AMBULATED IN HALWAYS X 4 THIS SHIFT, BED BATH THIS SHIFT. PT HAD LIQUID STOOL X 3 THIS SHIFT, BROWN TO SEEDY YELLOW/BROWN. ATTENDS REMAINED IN PLACE. PT REPORTS FEELING DEPRESSED THIS AM. FOLLOWING THERAPEUTIC CONVERSATION WITH THIS RN, DR LOFTON, AND FRIEND OVER THE PHONE, PT REPORTS HE "HAS A LITTLE MORE HOPE". PT TOLERATING SMALL AMOUNT OF FULL LIQUID DIET. WOUND DRESSING CHANGED WITH WET TO DRY SALINE INFUSED GAUZE DRESSING UNDER KERLEX AND TAPE. MALODOROUS GREEN/BROWN PURULENT DRAINAGE FROM WOUND.
--- NOTE | 2021-04-04 03:24 | NUR ---
SHIFT SUMMARY PT RESTED WELL THIS NOC SHIFT. AAOX4. PT REPORTING MINIMAL DISCOMFORT WHILE RESTING IN BED. DENIES NAUSEA/EMESIS. ABD DRESSING CHANGED YESTARDAY EVENING, NO DRAINAGE NOTED, DRESSING D/C/I THIS AM. NO ACUTE CHANGES OVER NIGHT. IV ABX PER ORDERS. SMALL AMOUNT OF PO INTAKE. PT RESTING WELL THIS AM WITH CALL LIGHT IN REACH.
[2021-04-04 04:58] LABS: Hematocrit 29.2 % (37.0-53.0); Hemoglobin 9.3 g/dL (13.5-17.5); Mean Corpuscular HGB 28.8 pg (26.0-34.0); Mean Corpuscular HGB Conc 31.8 g/dL (31.5-36.5); Mean Corpuscular Volume 90 fL (80-100); Mean Platelet Volume 8.9 fL (9.1-12.4); Platelet Count 545 K/mm3 (150-400); RDW Coefficient Variation 15.8 % (11.7-14.2); RDW Standard Deviation 51.6 fL (35.1-46.3); Red Blood Cell Count 3.23 M/mm3 (4.30-5.90); White Blood Cell Count 8.83 K/mm3 (4.00-11.30)
[2021-04-04 05:24] LABS: Albumin, Blood 2.3 g/dL (3.4-5.0); Anion Gap 6 mmol/L (6-16); Blood Urea Nitrogen 5 mg/dL (8-24); Bun/Creatinine Ratio 7.7 (12.0-20.0); CO2, Blood 26 mmol/L (21-32); Calcium, Blood 8.8 mg/dL (8.5-10.1); Chloride, Blood 102 mmol/L (98-108); Creatinine, Blood 0.65 mg/dL (0.60-1.20); Glomerular Filtration Rate >60 (60-); Glucose, Blood 95 mg/dL (70-99); Magnesium, Blood 1.7 mg/dL (1.6-2.4); Phosphorus, Blood 3.7 mg/dL (2.5-4.9); Potassium, Blood 3.4 mmol/L (3.5-5.5); Sodium, Blood 134 mmol/L (136-145)
--- NOTE | 2021-04-04 18:21 | NUR ---
SHIFT SUMMARY S/P I&D OF NECTROTIC FAT IN ABD, WET TO DRY DRSG W/TD Vaughan SURG TAPE MIDLINE ABD. PT IS A/O, VSS, NO N/V, DENIES PAIN. MEPILEX TO COCYX, AMBULATED IN HALLS VERY WELL TODAY. CONT TO HAVE LOOSE STOOL. MOOD AND AFFECT HAS IMPROVED, COOPERATIVE W/ STAFF. CALL LIGHT IN REACH, WILL CONTINUE TO MONITOR.
--- NOTE | 2021-04-05 05:36 | NUR ---
SHIFT SUMMARY: GORDON IS A&OX4. VSS, NO ACUTE EVENTS OVERNIGHT. HE STATES THAT HE SLEPT WELL. IV TO R FOREARM PATENT. HE IS USING THE URINAL WITHOUT DIFFICULTY. HE IS LYING IN BED WITH THE CALL LIGHT IN REACH. WILL REPORT TO DAY SHIFT RN.
--- NOTE | 2021-04-05 17:12 | NUR ---
SHIFT CANDELARIO S/P I&D OF NECTROTIC FAT OF ABD X3 DAYS AGO. WET TO DRY DRSG IN PLACE & CAHNGED THIS SHIFT W/ GAUZE AND SURG TAPE COVERING. DRNG IMPROVED FROM YEST. A/O, DENIES PAIN, NO N/V, VSS. IMPROVED APPETITE, URINITAING WELL W/ URINAL, CONT TO HAVE LOOSE STOOL. MEPILIEX IN PLACE TO COCCYX. AMBULATED IN HALLWAYS WELL. VERY COOPERATIVE W/STAFF AND CONT TO HAVE IMPROVED & MOTIVATION. CALL LIGHT IN REACH, WILL CONTINUE TO MONITOR.
[2021-04-06 04:36] LABS: Anion Gap 6 mmol/L (6-16); Blood Urea Nitrogen 7 mg/dL (8-24); Bun/Creatinine Ratio 12.3 (12.0-20.0); CO2, Blood 24 mmol/L (21-32); Calcium, Blood 8.7 mg/dL (8.5-10.1); Chloride, Blood 104 mmol/L (98-108); Creatinine, Blood 0.57 mg/dL (0.60-1.20); Glomerular Filtration Rate >60 (60-); Glucose, Blood 94 mg/dL (70-99); Potassium, Blood 2.8 mmol/L (3.5-5.5); Sodium, Blood 134 mmol/L (136-145)
--- NOTE | 2021-04-06 13:52 | NUR ---
PT STRICT NPO, LUNCH HELD. UNABLE TO GIVE PO POTASSIUM AT THIS TIME. DR. SHARPE MADE AWARE.
--- NOTE | 2021-04-06 17:25 | NUR ---
WOUND DRESSING CHANGE: PAPER TAPE AND GAUZE REMOVED FROM ABDOMINAL WOUND. UPON ASSESSMENT SMALL AMT OF PURULENT DRAINAGE AT WOUND BED. WOUND CLEANSED AND WET TO DRY DRESSING APPLIED. PT MEDICATED WITH 0.5 DILAUDID FOLLOWING DRESSING CHANGE PER PT REQUEST. PT TOLERATED WELL, WILL CTM.
--- NOTE | 2021-04-06 18:36 | NUR ---
SUMMARY: NO ACUTE CHANGE TODAY, VSS, A/O. SURGICAL SITE WNL, DRESSING CDI. PT CONTINUES TO BE WEAK BUT ABLE TO AMBULATE WITH THERAPY IN THE ROOM. IV ABX INFUSED, IV POTASSIUM INFUSING NOW. MODIFIED BARIUM SWALLOW PERFORMED TODAY WITH SPEACH THERAPY PRESENT. PT IS NOW STRICT NPO DUE TO SILENT ASPIRATION, SEE ORDERS. PER DR. SHARPE PLAN IS TO SWITCH PO MEDS TO IV IF POSSIBLE AND PLACE NGT, AWAITING ORDERS AT THIS TIME. DIETARY IS CONSULTED. WILL CTM AND REPORT TO ADILIA FONTENOT.
--- NOTE | 2021-04-07 04:44 | NUR ---
SHIFT SUMMARY POD4 I&D AMD SURGICAL SITE, A/O X4, VSS, STRICT NPO, NEW ORDER FOR NG TUBE JUST BEFORE SHIFT CHANGE BUT PT IS ADAMANTLY REFUSING AND WOULD LIKE TO TALK W/ ATTENDING IN REGARD TO ANY OTHER AVAILABLE OPTIONS W/ ANY ASSOCIATED RISK FACTORS, VOIDING WELL, PASSING FLATUS BUT NO BM THIS SHIFT, PAIN WELL MANAGED, NO ACUTE EVENTS THIS SHIFT. CALL LIGHT IN REACH, WILL CTM AND REPORT TO ONCOMING DAY RN.
[2021-04-07 05:42] LABS: Anion Gap 6 mmol/L (6-16); Blood Urea Nitrogen 10 mg/dL (8-24); Bun/Creatinine Ratio 15.3 (12.0-20.0); CO2, Blood 25 mmol/L (21-32); Calcium, Blood 8.4 mg/dL (8.5-10.1); Chloride, Blood 105 mmol/L (98-108); Creatinine, Blood 0.65 mg/dL (0.60-1.20); Glomerular Filtration Rate >60 (60-); Glucose, Blood 78 mg/dL (70-99); Magnesium, Blood 1.5 mg/dL (1.6-2.4); Potassium, Blood 3.1 mmol/L (3.5-5.5); Sodium, Blood 136 mmol/L (136-145)
--- NOTE | 2021-04-07 09:04 | NUR ---
DR. SHARPE ROUNDED ON PT. PLAN FOR ATTEMPT X1 TO PLACE NG TUBE, PT REPORTS HE IS OK WITH NG TUBE AT THIS TIME. ALSO PLAN FOR PALLIATIVE CARE TO SEE PT AND DISCUSS OPTIONS R/T COMFORT CARE/HOSPICE. WILL CONTINUE TO MONITOR.
--- NOTE | 2021-04-07 11:22 | NUR ---
Met with patient to review his options of care. He is truggling with choices and his mortality and fear of because of his life mistakes. Mostly active listening and aknolwging his fears. Tried hard to make him feel heard and understood. He is willing to try the dobhoff again and build some strenth. We spoke about prognosis and a life plan. He wants to get home with caregivers and has a goal to walk. Pt kps score is 40%. Best strategy is to have home health continue to follow him and have a hospice consult when he gets home. He fears that is is comfort only he may not get home to see his cats. Will have chaplians see him regularly or his spiritual grief and fear.
--- NOTE | 2021-04-07 13:00 | NUR ---
OK TO USE DOBHOFF. PRASANNA KIRKLAND REPORTED OK FROM RADIOLOGY TO USE DOBHOFF FOR FEEDINGS. GUIDE WIRE REMOVED AFTER PLACEMENT WAS CONFIRMED.
--- NOTE | 2021-04-07 16:20 | NUR ---
DOBHOFF TUBE ASSESS WITH AUSCULTATION PRIOR TO STARTING FEEDING AND GIVING DARLEEN.
--- NOTE | 2021-04-07 17:50 | NUR ---
TUBE FEEDING STARTED AT 45ML/HOUR PER ORDER AND FLUSH WITH 65ML Q2 HOURS PER ORDER. WILL CONTINUE TO MONITOR.
--- NOTE | 2021-04-07 17:51 | NUR ---
SHIFT SUMMARY PT ALLOWED DOBHOFF TUBE TO BE PLACED FOR FEEDINGS TODAY. PT WAS EDUCATED THAT ALL HIS NEEDED NUTRITION CAN BE PROVIDED THROUGH THE DOBHOFF TUBE. PT EXPRESSED FRUSTRATION THAT TUBE FEEDINGS HAD BEEN ATTEMPTED BEFORE, THIS RN EDUCATED THE PT THAT THE TUBE FEEDING WAS DIFFERENT FROM TPN OR PARENTERAL NUTRITION THAT HAD BEEN GIVEN PREVIOUSLY. ONCE PT UNDERSTOOD THE DIFFERENCE HIS MOOD IMPROVED AND WAS WILLING TO PARTICIPATE IN CARE. PT OFTEN BECOMES FRUSTRATED AND CONFUSED ABOUT MEDICAL CARE/ADVICE, PT HAS REQUIRED RE-EDUCATION. PT WORKED WITH THERAPY TODAY, HE IS A 1 ASSIST TO GET TO THE BATHROOM BUT QUICKLY WEAKENS. VSS. WILL MONITOR UNTIL REPORT TO NOC RN.
--- NOTE | 2021-04-07 19:00 | NUR ---
RECEIVED REPORT AND ASSUMED CARE OF PT. HE WAS UP TO THE BATHROOM, ONE PERSON ASSIST BACK TO BED. BLANCHABLE REDNESS NOTED TO BACK JUST UNDER LEFT SCAPULA, MEPILEX APPLIED. CONTINUOUS FEED THROUGH DOBHOFF. HE DENIES ANY NEEDS AT THIS TIME. CALL LIGHT IN REACH. WCTM.
--- NOTE | 2021-04-08 05:13 | NUR ---
SHIFT SUMMARY: GORDON IS A&OX4. VSS, NO ACUTE EVENTS OVERNIGHT. CONTINOUS FEEDS DELIVERED THROUGH THE DOBHOFF, TOLERATING WELL. HE IS USING THE URINAL WITHOUT DIFFICULTY AND REPORTS ADEQUATE PAIN CONTROL WITH THE DILAUDID. HE IS ABLE TO MAKE HIS NEEDS KNOWN. DRESSING TO ABDOMEN C/D&I. IF TO R FOREARM PATENT. HE IS LYING IN BED WITH THE CALL LIGHT IN REACH. WILL REPORT TO DAY SHIFT RN.
[2021-04-08 05:29] LABS: Anion Gap 7 mmol/L (6-16); Blood Urea Nitrogen 17 mg/dL (8-24); Bun/Creatinine Ratio 28.7 (12.0-20.0); CO2, Blood 24 mmol/L (21-32); Calcium, Blood 8.6 mg/dL (8.5-10.1); Chloride, Blood 102 mmol/L (98-108); Creatinine, Blood 0.59 mg/dL (0.60-1.20); Glomerular Filtration Rate >60 (60-); Glucose, Blood 92 mg/dL (70-99); Magnesium, Blood 1.6 mg/dL (1.6-2.4); Phosphorus, Blood 2.8 mg/dL (2.5-4.9); Potassium, Blood 3.5 mmol/L (3.5-5.5); Sodium, Blood 133 mmol/L (136-145)
--- NOTE | 2021-04-08 09:52 | NUR ---
WET TO DRY ON ADBDOMEN CHANGED AT THIS TIME. BROWN DRAINAGE IN DRESSINGS. PT DENIED PAIN WITH CHANGE. MARGINS ON WOUND APPEAR TO BE MOVING INWARDS.
--- NOTE | 2021-04-08 15:28 | NUR ---
FEED RATE ADJUSTED TO 60ML/HR PER ORDERS. PT HAS BEEN TOLERATING WELL. DENIES ANY NAUSEA.
--- NOTE | 2021-04-08 17:35 | NUR ---
SHIFT SUMMARY PT AAOX4. DRESSING CHANGED WITH WET TO DRY. BROWN DRAINAGE STILL. PT TOLERATED WELL WITH MINIMAL INCREASE IN PAIN. REPORTS PAIN IN LEFT SHOULDER/NECK REPORTS INCREASING SINCE HIS NECK SURGERY. DOBHOFF IN PLACE INFUSING AT 60ML/HR PER ORDERS. PT TOLERATING WELL WITH NO NAUSEA. PT REPORTS FEELING DOWN AND "GIVING UP" AT TIMES. HE STATES HE STILL HAS A FEW GOOD YEARS LEFT AND IS NOT READY TO QUIT. PLAN IS TO CONTINUE THE DOBHOFF FEEDING UNTIL ABDOMEN IS HEALED AND THEN CONSIDER PEG TUBE PLACEMENT R/T SWALLOWING ISSUES.
[2021-04-09 04:24] LABS: Magnesium, Blood 1.6 mg/dL (1.6-2.4); Phosphorus, Blood 3.1 mg/dL (2.5-4.9)
--- NOTE | 2021-04-09 04:54 | NUR ---
SHIFT SUMMARY: GORDON IS A&OX4. VSS, NO ACUTE EVENTS OVERNIGHT. HE REPORTS ADEQUATE PAIN CONTROL WITH DILAUDID AND NORCO. HE IS TOLERATING THE FEEDS VIA DOBHOFF WELL, DENIES ANY INCREASED COUGH OR FEELING OF FULLNESS. DRESSING TO ABDOMEN C/D&I. HIS COUGH EFFORT IS IMPROVING AND IS ABLE TO CLEAR MODERATE AMOUNTS OF THICK SPUTUM. ATTENDS IN PLACE, USING THE URINAL WITHOUT DIFFICULTY. IF TO R FOREARM PATENT. HE IS LYING IN BED WITH THE CALL LIGHT IN REACH. WILL REPORT TO DAY SHIFT RN.
--- NOTE | 2021-04-09 13:45 | NUR ---
DRESSING CHANGED. NEW WET TO DRY PLACED ON. BROWN DRAINAGE PRESENT DENIED PAIN AT THIS TIME.
--- NOTE | 2021-04-09 16:13 | NUR ---
SHIFT SUMMARY AA0X4, WOUND DRESSING CHANGED, BROWN DRAINAGE IN WOUND. INCREASED GRANULATION TISSUE IN WOUND. PT TOLERATES DRESSING CHANGE WELL, NO PAIN REPORTED IN ABDOMEN. PAIN LOCATED IN LEFT SHOULDER AND ARM. MEDICATED PER EMAR. PT UP AND AMBULATES WELL TO RESTROOM. HAVING LOOSE STOOLS TODAY AND PASSING GAS. DOBHOFF DRAIN INTACT, CONTINOUS FEEDING DURING SHIFT. PLAN IS TO CONTINUE FEEDINGS AND DRESSING CHANGES.
--- NOTE | 2021-04-09 19:45 | NUR ---
RECEIVED REPORT AND ASSUMED CARE OF PT. HE IS SITTING UP IN BED, AWAKE AND ALERT. HE DENIES ANY NEEDS AT THIS TIME. HIS ONLY COMPLAINT IS THE DOBHOFF CAUSING IRRITATION TO HIS NOSE. WCTRENT.
--- NOTE | 2021-04-09 21:51 | NUR ---
DRESSING TO ABDOMEN CHANGED. PT REPORTED DRY SKIN ON FEET, SOCKS REMOVED AND LOTION APPLIED TO BILATERAL FEET. SOCKS LEFT OFF PER PT REQUEST. EDUCATED ON IMPORTANCE OF REPLACING SOCKS PRIOR TO AMBULATION. PT REPORTED UNDERSTANDING AND STATES WILL COMPLY.
--- NOTE | 2021-04-09 22:56 | NUR ---
PT REPORTS FEELING FULL. CONTINUOUS FEEDING PLACED ON HOLD FOR HALF AN HOUR. LUNG SOUNDS UNCHANGED, CLEAR & DIMINISHED IN THE BASES. WILL REASSESS.
--- NOTE | 2021-04-09 23:45 | NUR ---
FEED RESTARTED. PT DENIES FEELING FULL, NO SOB OR CHANGES IN LUNG SOUNDS.
[2021-04-10 04:41] LABS: Hematocrit 28.6 % (37.0-53.0); Hemoglobin 9.3 g/dL (13.5-17.5); Mean Corpuscular HGB 29.4 pg (26.0-34.0); Mean Corpuscular HGB Conc 32.5 g/dL (31.5-36.5); Mean Corpuscular Volume 91 fL (80-100); Mean Platelet Volume 9.1 fL (9.1-12.4); Platelet Count 424 K/mm3 (150-400); RDW Coefficient Variation 16.3 % (11.7-14.2); RDW Standard Deviation 54.4 fL (35.1-46.3); Red Blood Cell Count 3.16 M/mm3 (4.30-5.90); White Blood Cell Count 10.67 K/mm3 (4.00-11.30)
--- NOTE | 2021-04-10 05:00 | NUR ---
SHIFT SUMMARY: GORDON IS A&OX4. VSS, NO ACUTE EVENTS OVERNIGHT. HE IS TOLERATING THE CONTINUOUS FEED AND REPORTS ADEQUATE PAIN CONTROL WITH DILAUDID. IV TO R FA PATENT. HE IS USING THE URINAL WITHOUT DIFFICULTY, ATTENDS IN PLACE, AMBULATES TO THE BATHROOM WITH A ONE PERSON ASSIST. DOBHOFF IN PLACE. DRESSING TO ABDOMEN C/D&I. HE IS LYING IN BED WITH THE CALL LIGHT IN REACH. WILL REPORT TO DAY SHIFT RN.
[2021-04-10 05:11] LABS: Anion Gap 7 mmol/L (6-16); Blood Urea Nitrogen 19 mg/dL (8-24); Bun/Creatinine Ratio 35.5 (12.0-20.0); CO2, Blood 26 mmol/L (21-32); Calcium, Blood 8.2 mg/dL (8.5-10.1); Chloride, Blood 102 mmol/L (98-108); Creatinine, Blood 0.54 mg/dL (0.60-1.20); Glomerular Filtration Rate >60 (60-); Glucose, Blood 106 mg/dL (70-99); Magnesium, Blood 1.6 mg/dL (1.6-2.4); Phosphorus, Blood 3.1 mg/dL (2.5-4.9); Potassium, Blood 3.3 mmol/L (3.5-5.5); Sodium, Blood 135 mmol/L (136-145)
--- NOTE | 2021-04-10 17:47 | NUR ---
Made a visit to patient today. This patient is known to me from previous hospitalizations and visits. He smiles, says sean when I arrive at his room. He doesn't appear to understand that he is not an option for a feeding tube. He currently has a dobhoff in place, but this is not a permanent solution. He speaks of returning home with a PEG tube, and having "2 girls there to help him 20 hours a week. Pt also talked about his kids today, and thinks he might get in touch with his exwife to let her know he has been in the hospital for an extensive amount of time. He also talked again today about his 2 grown children, and the guilt he feels for not getting to know them. However, he does state he has pictures of them and knows about their lives. He states he and his ex have a deal that the kids know how to reach him. Pt does not appear to have a realistic view of the seriousness of this illness, but plan to discuss the issue further with him tomorrow.
--- NOTE | 2021-04-10 19:26 | NUR ---
SHIFT SUMMARY PATIENT ALERT AND ORIENTED THROUGHOUT SHIFT. TOLERTING CONTINUOUS FEEDING THROUGH DOBHOFF. PAUSING FREQUENTLY WHEN PATIENT FEELS FULL. POWERGLIDE IV PLACED TODAY IN R UPPER ARM. DRESSING TO ABD WOUND CHANGED THIS SHIFT. WORKED WELL WITH PHYSICAL THERAPY. TAKES MEDS CRUSHED THROUGH DOBHOFF. MEPILEX PLACED TO BACK SHOULDER BLADE AND COCCYX. REPORT GIVEN TO SUPERVISOR SOAKERS RN.
--- NOTE | 2021-04-11 06:15 | NUR ---
PT VSS T/O NIGHT. PT HAS OCC PROD COUGH, IS USING I/S AND FLUTTER VALVE PRN. DRESSING INTACT, NO VISIBLE DRNG NOTED. TUBE FEEDINGS CONT T/O NIGHT, PT DENIED FULLNESS OR ABD DISCOMFORT, NO C/O N/V. PT VOIDING URINE W/O DIFFICULTY, HAD 1 BM THIS SHIFT. PT CONT TO C/O DISCOMFORT R/T DOBHOFF TUBE IN NOSE; PAIN MGD W/IV DILAUDUD W/REP RELIEF. PT ASSISTING W/REPOSITIONING IN BED. REP HE FEELS HIS STRENGTH IS IMPROVING SINCE STARTING TUBE FEEDS. SUPPORT AND EDUCATION PROVIDED PRN T/O NIGHT.
--- NOTE | 2021-04-11 07:05 | NUR ---
recvd report from previous RN Destiney, pt awake in bed, a/o x 4, pleasant/cooperative, bed in lowest position, call light within reach, bed rails up x2, adjusted temp in room per pt request
--- NOTE | 2021-04-11 09:55 | NUR ---
DR HARRELL ROUNDING ON PT
--- NOTE | 2021-04-11 10:15 | NUR ---
PT IN WORKING WITH PATIENT
--- NOTE | 2021-04-11 16:38 | NUR ---
PT working with patient
--- NOTE | 2021-04-11 16:53 | NUR ---
shift summary: vss, no acute changes. pt has voided, no bm this shift. pt denies n/v, has received continuous feeds via kangaroo pump; requested to be unhooked from feed for approx 2 hrs mid shift as he felt "bloated". this was accomplished with readmission of feeds successfully. pt up to bathroom x 3 this shift, has worked with PT this shift. pt remained a/o x 4, pleasant/cooperative. pt rates pain in narea from Dobhoff at 7-8/10 before analgesia per jan; 5/10 following. pt received speech treatment, enhanced oral care with suction/moisture this shift. wet/dry dressing changed this shift.
[2021-04-12 04:25] LABS: BASOPHILS ABSOLUTE AUTO 0.03 K/mm3 (0.00-0.23); BASOPHILS PERCENT AUTO 0 % (0-2); EOSINOPHILS ABSOLUTE AUTO 0.32 K/mm3 (0.00-0.68); EOSINOPHILS PERCENT AUTO 3 % (0-6); Hematocrit 29.9 % (37.0-53.0); Hemoglobin 9.6 g/dL (13.5-17.5); IMMATURE GRAN ABSOLUTE AUTO 0.06 K/mm3 (0.00-0.10); IMMATURE GRAN PERCENT AUTO 1 % (0-1); LYMPHOCYTES ABSOLUTE AUTO 2.36 K/mm3 (0.84-5.20); LYMPHOCYTES PERCENT AUTO 22 % (21-46); MONOCYTES ABSOLUTE AUTO 0.73 K/mm3 (0.16-1.47); MONOCYTES PERCENT AUTO 7 % (4-13); Mean Corpuscular HGB 29.4 pg (26.0-34.0); Mean Corpuscular HGB Conc 32.1 g/dL (31.5-36.5); Mean Corpuscular Volume 92 fL (80-100); Mean Platelet Volume 9.2 fL (9.1-12.4); NEUTROPHILS PERCENT AUTO 68 % (41-73); Platelet Count 393 K/mm3 (150-400); RDW Coefficient Variation 16.5 % (11.7-14.2); RDW Standard Deviation 55.5 fL (35.1-46.3); Red Blood Cell Count 3.26 M/mm3 (4.30-5.90)
[2021-04-12 04:50] LABS: Anion Gap 5 mmol/L (6-16); Blood Urea Nitrogen 22 mg/dL (8-24); Bun/Creatinine Ratio 40.2 (12.0-20.0); CO2, Blood 28 mmol/L (21-32); Calcium, Blood 8.7 mg/dL (8.5-10.1); Chloride, Blood 103 mmol/L (98-108); Creatinine, Blood 0.55 mg/dL (0.60-1.20); Glomerular Filtration Rate >60 (60-); Glucose, Blood 97 mg/dL (70-99); Phosphorus, Blood 3.2 mg/dL (2.5-4.9); Potassium, Blood 3.4 mmol/L (3.5-5.5); Sodium, Blood 136 mmol/L (136-145)
--- NOTE | 2021-04-12 05:53 | NUR ---
PT VSS, IS TOLERATING FEEDS WELL, DENIED ANY ABD DISCOMFORT/N/V/BLOATING. PT HAD 1 LIQ BM THIS AM, IS VOIDING URINE W/O DIFFICULY. DRESSING CDI. PT CONT TO REP PAIN IN NARE R/T DOBHOFF TUBE, MED W/IV DILAUDID PER PT REQ. PT UP OOB W/FWW+SBA, PJ WELL. PT IN GOOD SPIRITS, IS EAGERLY AWAITING [facility] TF PLANNING.
--- NOTE | 2021-04-12 07:40 | NUR ---
pt worried that id dr will not allow peg tube placement and that he will not be able to go home discussed at length
--- NOTE | 2021-04-12 10:55 | NUR ---
dressing changed wet to dry dr andres by to see pt new tape placed to tube restarted tube feeding at 45 ml hr held for 1 hr due to abd pain dilaudid 0.5mg ivp given for nose pain abd pain better weighed pt using the scale
--- NOTE | 2021-04-12 17:58 | NUR ---
UNABLE TO UNPLUG THE FEEDING TUBE REMOVED AND REPLACED AWAITING XRAY FOR PLACEMENT
--- NOTE | 2021-04-13 03:31 | NUR ---
SHIFT SUMMARY PT RESTING WELL THIS NOC SHIFT. AAOX4/ANXIOUS. DISCOMFORT DECREASED WITH 0.5MG IV DILAUDID X2. DENIES NAUSEA/EMESIS. ABD WOUND WITH DRESSING, WET TO DRY DRESSING CHANGES QSHIFT. NEW DOBHOFF TUBE PLACED YESTARDAY + XRAY VERIFIED PLACEMENT IN STOMACH, REPEAT CHEST XRAY TODAY TO CONFIRM PLACEMENT. PT UP TO RESTROOM, 1 PERSON MODERATE ASSIST. IV ABX PER ORDERS. PT CURRENTLY RESTING IN BED WITH CALL LIGHT IN REACH.
--- NOTE | 2021-04-13 06:38 | NUR ---
DOBHOFF PT CONTINUES TO REFUSE REPOSITIONING OF DOBHOFF THIS AM. THIS RN SAT DOWN WITH PT AND DISCUSSED HIS WISHES WHICH CONSISTED OF GETTING A PEG TUBE AND GOING HOME TO SEE HIS CATS. PT REQUESTED TO SEE WHAT DR KELLER AND DR KESSLER DECIDE TODAY BEFORE ALLOWING REPOSITIONING OF DOBHOFF. PT RESTING IN BED WITH EYES CLOSED AT THIS TIME WITH CALL LIGHT IN REACH.
--- NOTE | 2021-04-13 13:58 | NUR ---
ADVANCED DOBHOFF AFTER IT WAS CONFIRMED BY XRAY THAT IT CAME DISLODGED. CONFIRMED WITH XRAY A SECOND TIME AFTER ADVANCING AND DOBHOFF STILL NOT IN STOMACH. WILL ADVANCE AGAIN.
[2021-04-13 14:52] LABS: C DIFFICILE DNA NEGATIVE (Negative)
--- NOTE | 2021-04-13 17:01 | NUR ---
MIDLINE ABD DRESSING CHANGED AT THIS TIME. BROWN DRAINAGE ON GAUZE WHEN REMOVED. PT TOLERATED WELL WITH NO PAIN. ATTEMPTED TO REINSERT DOBHOFF, PT TOLERATED WELL. AWAITING X-RAY CONFIRMATION OF LOCATION. PT CURRENTLY RESTING IN BED CALL LIGHT IN REACH.
--- NOTE | 2021-04-13 18:23 | NUR ---
UNABLE TO READVANCE PREVIOUS DOBHOFF. SPOKE WITH DR THOMAS. ORDERS RECIEVED TO INSERT NEW DOBHOFF WITH XRAY CONFIRMATION. SPOKE TO PATIENT AT LENGTH ABOUT NEED TO REINSERT NEW TUBE, ALSO SPOKE ABOUT SWITCHING NOSTRILS IF THIS IS TO BE A [facility] SOLUTION. HE WAS AGREEABLE TO SWITCHING NOSTRILS AND INSERTING NEW TUBE. PT TOLERATED WELL AND DENIED PAIN, CURRENTLY AWAITING RESULTS FROM X RAY CONFIRMING LOCATION.
--- NOTE | 2021-04-13 19:39 | NUR ---
SHIFT SUMMARY PT A/O X4; PLEASANT AND COOPERATIVE WITH CARE. PT RECEIVED SOME HARD NEWS ABOUT NOT BEING A CANDIDATE FOR PEG TUBE PLACEMENT AND IS DOWN BUT OVERALL STILL IN GOOD SPIRITS. DOBHOFF DISLODGED EARLIER THIS SHIFT. DOBHOFF READVACED 2 TIMES WITH NO SUCCESS. NEW DOBHOFF PLACED IN OPPOSITE NARE DUE TO CURRENT NARE BEING EXTREMELY PAINFUL. NEW DOBHOFF CONFIRMED ON X-RAY. VSS.
--- NOTE | 2021-04-14 06:00 | NUR ---
SHIFT SUMMARY PT RESTED WELL THIS AM. AAOX4/ANXIOUS. DISCOMFORT DECREASED WITH 0.5MG IV DILAUDID FOR BREAKTHROUGH, NO NAUSEA/EMESIS. ABD WOUND DRESSING CHANGED, WET TO DRY 4X4 GAUZE, TO BE CHANGED Q SHIFT. CONTINUOUS TUBE FEEDING RESTARTED YESTARDAY EVENING POST DOBHOFF ADVANCEMENT AND TUBE PLACEMENT X-RAY WITH DR HIDALGO ORDER TO CONTINUE FEEDS. PT UP TO RESTROOM, SBA WITH FWW, LIQUID STOOL. PT NOW RESTING WELL IN BED WITH CALL LIGHT IN REACH.
--- NOTE | 2021-04-14 18:47 | NUR ---
SHIFT SUMMARY NO ACUTE CHANGES THIS SHIFT. PT TOLERATED DOBHOFF WELL THIS SHIFT AND IT REMAINS PATENT AND IN PLACE. PT WORKED WITH THERAPY AND DID WELL; THERAPY EXPRESSES THAT HE IS MUCH STRONGER AND READY TO GO HOME. WOUND DRESSING ON . PT WILL POSSIBLY DISCHARGE HOME ON SATURDAY. VSS.
--- NOTE | 2021-04-15 08:25 | NUR ---
SUMMARY WET TO DRY DRSNG CHANGED.INCISION CONT WITH CREAMY REED DRNG.
--- NOTE | 2021-04-15 18:33 | NUR ---
SUMMARY: NO ACUTE CHANGE TODAY, VSS, A/O. DRESSING CHANGED AT ABD TONIGHT, PT PJ WELL. NEW WET TO DRY DRESSING IN PLACE. CONTINUIOUS FEEDINGS THROUGH DOBHOFF INFUSING. PT GIVEN PAIN MEDS PRN, NEW FENTANYAL PATCH PLACED L UPPER ARM. ABX INFUSED. PT ABLE TO WORK WITH THERAPY. PLAN IS HH ON SATURDAY NO CONCERNS.
--- NOTE | 2021-04-16 06:21 | NUR ---
SHIFT SUMMARY LYING IN SEMI FOWLERS WITH EYES OPEN WHILE WATCHING TV HAS RESTED WELL THIS SHIFT. AAO X4, MCCRARY, FOLLOWS ALL COMMANDS. GIVEN PRN PAIN MEDS PER EMAR. LEFT FA PIV IS PATENT, FLUSHES WITH EASE WHILE INFUSING TKO NS. WET TO DRY DRESSING CHANGE TO MIDLINE ABD WOULD COMPLETED PER MD ORDERS. THICK, PURULENT, LIGHT MORRIS FLUID NOTED EXITING THE WOUND. AFTER WOUND CARE COMPLETED NURSING NOTED STAIN ON SHEET. WHEN CHANGING NOTED WHE PT HAD A LARGE LOOSE BM. PT CLEANED, GOWN AND PARTIAL USAMA CHANGE COMPLETED. NO FURTHER SIGNIFICANT CHANGES NOTED THIS SHIFT. DENIES PAIN, DISCOMFORT, OR FURTHER NEEDS AT THIS TIME. SAFETY MEASURES IN PLACE. WILL CONTINUE TO MONITOR AND ADDRESS CHANGES AND NEEDS THEY ARISE. WILL GIVE HAND OFF TO ONCOMING SHIFT USING SBAR DURING BEDSIDE REPORT.
--- NOTE | 2021-04-16 18:17 | NUR ---
SUMMARY: NO CHANGE TODAY. VSS, A/O. FEEDING INFUSING WELL THROUGH DOBHOFF. NEW WET TO DRY DRESSING PLACE TO ABD. FENTANYAL PATCH DOSE INCREASED TO 50 MCG, THE 25 MCG PATCH WAS REMOVED. ATTEMPTING TO WEAN FROM IV DILAUDID. PT CONTINUES TO C/O PAIN AT NARES AND REQUESTS DILAUDID. NO ACUTE SAFETY CONCERN.
--- NOTE | 2021-04-16 18:47 | NUR ---
PT FALL: THIS RN DID NOT OBSERVE FALL. PER REPORT OF MARIAN ORMAN: PT WAS ON THE TOLIET WITH A RISER COMMODE AND PT LEANED TO WIPE AND THE COMMODE TIPPED AND FELL TO THE SIDE WITH THE COMMODE AND LANDED IN THE SHOWER. PT DENIED HITTING HEAD. PT ABLE TO SIT UP AND VS TAKEN. VSS AND NO ABRASIONS NOTED, SKIN IS INTACT. PT THEN ABLE TO STAND AND AMBULATE TO A CHAIR. PT DENIES ANY PAIN AT THIS TIME. NEURO IS INTACT. DR SAHNI PAGED, AWAITING CALL BACK AT THIS TIME.
--- NOTE | 2021-04-16 18:57 | NUR ---
SPOKE WITH DR. THOMAS AT THIS TIME CONCERNING PT FALL. WILL CTM PT STATUS
--- NOTE | 2021-04-17 05:14 | NUR ---
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 PT CONTINUES TO HAVE C/O SEVERE PAIN MOSTLY IN NARES ALSO IN ABDOMEN REQUIRING PAIN MEDICATION Q4H. PT HAS REMAINED AFEBRILE W PEAK TEMP 98.7. DOBHOFF RUNNING W NO S/S OF OCCLUSION. ABD WOUND CLEANED AND DRESSING APPLIED PER ORDER. WOUND HAD SMALL AMOUNT OF REED MILKY FLUID DISCHARGE ON OLD DRESSING. PT DENIED ANY PAIN AROUND WOUND. O2 SATS REMAIN >92% ON RM AIR. PT HAD ONE LIQUID BM THIS SHIFT. VSS, WILL REPORT TO DAYSHIFT RN.
[2021-04-17] MEDS ORDERED: FENTANYL1 EAC7 TOP (11:08)
[2021-04-17] MEDS ORDERED: ACET325UDC PO (14:23)
[2021-04-17] MEDS ORDERED: JUVEN PACKET1 EAC3 PT (14:24)
[2021-04-17] MEDS ORDERED: SERT25 PT (14:25)
[2021-04-17] MEDS ORDERED: HURRICAINE ONE1 EACH (14:27)
[2021-04-17] MEDS ORDERED: Protonix40 M1 PT (14:28)
--- NOTE | 2021-04-17 17:11 | NUR ---
DISCHARGE PT LEFT AT 1645 WITH FAMILY FRIEND. EXTENSIVELY WENT OVER PUMP WITH PATIENT AND FRIEND. THEY DENIED FURTHER QUESTIONS REGARDING ITS USE AND EXPRESSED RELIEF OVER HOW USER FRIENDLY PUMP WAS. SENT ALL BELONGINGS WITH PATIENT AND FRIEND, SCRIPT FAXED IN AND FENTANYL PATCH SCRIPT SENT IN DISCHARGE PACKET. WOUND DRESSING CHANGED WITH DISCHARGE. PT TOLERATED WELL. PT REPORTS PAIN MANAGED PER EMAR CURRENTLY. DOBHOFF WAS PATENT AND FUNCTIONING, FLUSHED WHEN DISCONNECTED. EXTRA FEED AND TUBE SUPPLIES SENT WITH PT.
[2021-05-12] MEDS ORDERED: CHLO25B PO (17:02)
[2021-05-12] MEDS ORDERED: CREON DR 12,001 EACH PT (17:03)
[2021-05-12] MEDS ORDERED: FENTANYL1 EAC7 TOP (17:04)
[2021-05-12] MEDS ORDERED: DOCU LIQUI50 MG/5 ML PO (17:04)
[2021-05-12] MEDS ORDERED: HYDHCL25 PO (17:05)
[2021-05-12] MEDS ORDERED: NAPROXEN250 MG PO (17:05)
[2021-05-12] MEDS ORDERED: Protonix40 M1 PO (17:06)
[2021-05-12] MEDS ORDERED: MIRALAX17 GM PO (17:06)
[2021-05-12] MEDS ORDERED: SERT20L PO (17:07)
[2021-05-24] MEDS ORDERED: DILAUDID 00.5 MG/0.1 PO (07:51)
[2021-05-24] MEDS ORDERED: Ativan1 MG PO (07:52)
[2021-05-24] MEDS ORDERED: DULCOLAX400 MG/51 PO (07:53)
[2021-05-24] MEDS ORDERED: ONDA4SO PO (07:53)
== END 2021-04-17 16:59 | disposition home or self-care (01) | DRG 856 ==
LOC: ER 15:01 → SURS 15:02 → ER 20:54 → SURS 20:54
PROVIDERS: Emergency Medicine; Internal Medicine; Physician Assistant; ADMIT Internal Medicine
PROC: 0JB80ZZ Excision of Abdomen Subcutaneous Tissue and Fascia, Open Approach (ICD-10-PCS; 2021-04-02)
PROC: 3E0G76Z Introduction of Nutritional Substance into Upper GI, Via Natural or Artificial Opening (ICD-10-PCS; principal; 2021-04-07)
DX: T81.41XA Infection following a procedure, superficial incisional surgical site, initial encounter (principal); E43 Unspecified severe protein-calorie malnutrition; A41.59 Other Gram-negative sepsis; A41.81 Sepsis due to Enterococcus; Z68.1 Body mass index [BMI] 19.9 or less, adult; E22.2 Syndrome of inappropriate secretion of antidiuretic hormone; T81.44XA Sepsis following a procedure, initial encounter; I25.10 Atherosclerotic heart disease of native coronary artery without angina pectoris; F31.9 Bipolar disorder, unspecified; Z66 Do not resuscitate; F41.9 Anxiety disorder, unspecified; E87.6 Hypokalemia; E83.42 Hypomagnesemia; R13.10 Dysphagia, unspecified; Y83.8 Other surgical procedures as the cause of abnormal reaction of the patient, or of later complication, without mention of misadventure at the time of the procedure; I10 Essential (primary) hypertension; I25.2 Old myocardial infarction; Z88.8 Allergy status to other drugs, medicaments and biological substances; Z98.890 Other specified postprocedural states; Z90.49 Acquired absence of other specified parts of digestive tract; Z87.891 Personal history of nicotine dependence; Z93.4 Other artificial openings of gastrointestinal tract status; Z79.899 Other long term (current) drug therapy; Z87.11 Personal history of peptic ulcer disease
CPT/HCPCS: 36415; 71045; 71046; 74018; 74177; 74230; 80048; 80053; 80069; 81001; 82947; 83605; 83690; 83735; 84100; 84484; 85025; 85027; 87040; 87070; 87075; 87076; 87077; 87086; 87185; 87186; 87205; 87493; 92526; 92610; 92611; 93005; 93010; 94667; 94668; 94760; 96365-59; 96366; 96367; 96372; 96376; 97110; 97110-CO; 97112; 97116; 97163; 97166; 97530; 97535; 97535-CO; 99285-25; A9270; C1751; C9113; G0378; J0295; J1170; J1650; J2543; J3475; J3480; J7030; J7050; Q9967

== ENCOUNTER 2021-04-20 16:29 | Emergency (ER) | payer OTHER ==
[~2021-04-20] VITALS: Ht 180.3 cm; Wt 52.6 kg
[~2021-04-20 16:29] MED LIST changes: +ACET325UDC PO; +FENTANYL1 EAC7 TOP; +HURRICAINE ONE1 EACH; +JUVEN PACKET1 EAC3 PT; +Protonix40 M1 PT; +SERT25 PT
[2021-05-12] MEDS ORDERED: CHLO25B PO (17:02)
[2021-05-12] MEDS ORDERED: CREON DR 12,001 EACH PT (17:03)
[2021-05-12] MEDS ORDERED: FENTANYL1 EAC7 TOP (17:04)
[2021-05-12] MEDS ORDERED: DOCU LIQUI50 MG/5 ML PO (17:04)
[2021-05-12] MEDS ORDERED: NAPROXEN250 MG PO (17:05)
[2021-05-12] MEDS ORDERED: HYDHCL25 PO (17:05)
[2021-05-12] MEDS ORDERED: MIRALAX17 GM PO (17:06)
[2021-05-12] MEDS ORDERED: Protonix40 M1 PO (17:06)
[2021-05-12] MEDS ORDERED: SERT20L PO (17:07)
[2021-05-24] MEDS ORDERED: DILAUDID 00.5 MG/0.1 PO (07:51)
[2021-05-24] MEDS ORDERED: Ativan1 MG PO (07:52)
[2021-05-24] MEDS ORDERED: ONDA4SO PO (07:53)
[2021-05-24] MEDS ORDERED: DULCOLAX400 MG/51 PO (07:53)
== END 2021-04-20 21:08 | disposition home or self-care (01) ==
LOC: ER 16:29
DX: Z46.59 Encounter for fitting and adjustment of other gastrointestinal appliance and device (principal); Z88.4 Allergy status to anesthetic agent; Z88.6 Allergy status to analgesic agent; Z79.899 Other long term (current) drug therapy
CPT/HCPCS: 43752; 74018; 99283-25

== ENCOUNTER 2021-04-25 21:06 | Emergency (ER) | payer OTHER ==
[~2021-04-25] VITALS: Ht 180.3 cm; Wt 52.6 kg
[2021-05-12] MEDS ORDERED: CHLO25B PO (17:02)
[2021-05-12] MEDS ORDERED: CREON DR 12,001 EACH PT (17:03)
[2021-05-12] MEDS ORDERED: FENTANYL1 EAC7 TOP (17:04)
[2021-05-12] MEDS ORDERED: DOCU LIQUI50 MG/5 ML PO (17:04)
[2021-05-12] MEDS ORDERED: HYDHCL25 PO (17:05)
[2021-05-12] MEDS ORDERED: NAPROXEN250 MG PO (17:05)
[2021-05-12] MEDS ORDERED: Protonix40 M1 PO (17:06)
[2021-05-12] MEDS ORDERED: MIRALAX17 GM PO (17:06)
[2021-05-12] MEDS ORDERED: SERT20L PO (17:07)
[2021-05-24] MEDS ORDERED: DILAUDID 00.5 MG/0.1 PO (07:51)
[2021-05-24] MEDS ORDERED: Ativan1 MG PO (07:52)
[2021-05-24] MEDS ORDERED: DULCOLAX400 MG/51 PO (07:53)
[2021-05-24] MEDS ORDERED: ONDA4SO PO (07:53)
== END 2021-04-26 01:17 | disposition home or self-care (01) ==
LOC: ER 21:06
DX: T85.598A Other mechanical complication of other gastrointestinal prosthetic devices, implants and grafts, initial encounter (principal); I10 Essential (primary) hypertension; I25.2 Old myocardial infarction; Z87.891 Personal history of nicotine dependence
CPT/HCPCS: 99283

== ENCOUNTER 2021-04-26 04:28 | Day surgery (SDC) | payer OTHER ==
[2021-05-12] MEDS ORDERED: CHLO25B PO (17:02)
[2021-05-12] MEDS ORDERED: CREON DR 12,001 EACH PT (17:03)
[2021-05-12] MEDS ORDERED: FENTANYL1 EAC7 TOP (17:04)
[2021-05-12] MEDS ORDERED: DOCU LIQUI50 MG/5 ML PO (17:04)
[2021-05-12] MEDS ORDERED: NAPROXEN250 MG PO (17:05)
[2021-05-12] MEDS ORDERED: HYDHCL25 PO (17:05)
[2021-05-12] MEDS ORDERED: Protonix40 M1 PO (17:06)
[2021-05-12] MEDS ORDERED: MIRALAX17 GM PO (17:06)
[2021-05-12] MEDS ORDERED: SERT20L PO (17:07)
[2021-05-24] MEDS ORDERED: DILAUDID 00.5 MG/0.1 PO (07:51)
[2021-05-24] MEDS ORDERED: Ativan1 MG PO (07:52)
[2021-05-24] MEDS ORDERED: DULCOLAX400 MG/51 PO (07:53)
[2021-05-24] MEDS ORDERED: ONDA4SO PO (07:53)
== END 2021-04-26 23:00 | disposition home or self-care (01) ==
LOC: WOUND 04:28
DX: T81.31XA Disruption of external operation (surgical) wound, not elsewhere classified, initial encounter (principal); S31.105S Unspecified open wound of abdominal wall, periumbilic region without penetration into peritoneal cavity, sequela; X58.XXXS Exposure to other specified factors, sequela; K65.1 Peritoneal abscess
CPT/HCPCS: G0463

== ENCOUNTER 2021-05-03 02:58 | Day surgery (SDC) | payer OTHER ==
[2021-05-12] MEDS ORDERED: CHLO25B PO (17:02)
[2021-05-12] MEDS ORDERED: CREON DR 12,001 EACH PT (17:03)
[2021-05-12] MEDS ORDERED: DOCU LIQUI50 MG/5 ML PO (17:04)
[2021-05-12] MEDS ORDERED: FENTANYL1 EAC7 TOP (17:04)
[2021-05-12] MEDS ORDERED: HYDHCL25 PO (17:05)
[2021-05-12] MEDS ORDERED: NAPROXEN250 MG PO (17:05)
[2021-05-12] MEDS ORDERED: Protonix40 M1 PO (17:06)
[2021-05-12] MEDS ORDERED: MIRALAX17 GM PO (17:06)
[2021-05-12] MEDS ORDERED: SERT20L PO (17:07)
[2021-05-24] MEDS ORDERED: DILAUDID 00.5 MG/0.1 PO (07:51)
[2021-05-24] MEDS ORDERED: Ativan1 MG PO (07:52)
[2021-05-24] MEDS ORDERED: ONDA4SO PO (07:53)
[2021-05-24] MEDS ORDERED: DULCOLAX400 MG/51 PO (07:53)
== END 2021-05-03 23:31 | disposition home or self-care (01) ==
LOC: WOUND 02:58
DX: T81.89XD Other complications of procedures, not elsewhere classified, subsequent encounter (principal); K65.1 Peritoneal abscess; K26.5 Chronic or unspecified duodenal ulcer with perforation
CPT/HCPCS: 87070; 87075; 87077; 87186; 87205; A9270; G0463

== ENCOUNTER 2021-05-04 09:56 | Emergency (ER) | payer OTHER ==
[~2021-05-04] VITALS: Ht 180.3 cm; Wt 52.6 kg
[2021-05-12] MEDS ORDERED: CHLO25B PO (17:02)
[2021-05-12] MEDS ORDERED: CREON DR 12,001 EACH PT (17:03)
[2021-05-12] MEDS ORDERED: FENTANYL1 EAC7 TOP (17:04)
[2021-05-12] MEDS ORDERED: DOCU LIQUI50 MG/5 ML PO (17:04)
[2021-05-12] MEDS ORDERED: NAPROXEN250 MG PO (17:05)
[2021-05-12] MEDS ORDERED: HYDHCL25 PO (17:05)
[2021-05-12] MEDS ORDERED: MIRALAX17 GM PO (17:06)
[2021-05-12] MEDS ORDERED: Protonix40 M1 PO (17:06)
[2021-05-12] MEDS ORDERED: SERT20L PO (17:07)
[2021-05-24] MEDS ORDERED: DILAUDID 00.5 MG/0.1 PO (07:51)
[2021-05-24] MEDS ORDERED: Ativan1 MG PO (07:52)
[2021-05-24] MEDS ORDERED: ONDA4SO PO (07:53)
[2021-05-24] MEDS ORDERED: DULCOLAX400 MG/51 PO (07:53)
== END 2021-05-04 17:36 | disposition home or self-care (01) ==
LOC: ER 09:56
DX: T85.598A Other mechanical complication of other gastrointestinal prosthetic devices, implants and grafts, initial encounter (principal); I10 Essential (primary) hypertension; I25.2 Old myocardial infarction; Z88.8 Allergy status to other drugs, medicaments and biological substances; Z79.899 Other long term (current) drug therapy; Z87.891 Personal history of nicotine dependence
CPT/HCPCS: 43752; 74018; 76000; 99283-25; J2001

== ENCOUNTER 2021-05-10 01:19 | Day surgery (SDC) | payer OTHER ==
[2021-05-12] MEDS ORDERED: CHLO25B PO (17:02)
[2021-05-12] MEDS ORDERED: CREON DR 12,001 EACH PT (17:03)
[2021-05-12] MEDS ORDERED: FENTANYL1 EAC7 TOP (17:04)
[2021-05-12] MEDS ORDERED: DOCU LIQUI50 MG/5 ML PO (17:04)
[2021-05-12] MEDS ORDERED: HYDHCL25 PO (17:05)
[2021-05-12] MEDS ORDERED: NAPROXEN250 MG PO (17:05)
[2021-05-12] MEDS ORDERED: Protonix40 M1 PO (17:06)
[2021-05-12] MEDS ORDERED: MIRALAX17 GM PO (17:06)
[2021-05-12] MEDS ORDERED: SERT20L PO (17:07)
[2021-05-24] MEDS ORDERED: DILAUDID 00.5 MG/0.1 PO (07:51)
[2021-05-24] MEDS ORDERED: Ativan1 MG PO (07:52)
[2021-05-24] MEDS ORDERED: ONDA4SO PO (07:53)
[2021-05-24] MEDS ORDERED: DULCOLAX400 MG/51 PO (07:53)
== END 2021-05-10 23:42 | disposition home or self-care (01) ==
LOC: WOUND 01:19
DX: T81.89XD Other complications of procedures, not elsewhere classified, subsequent encounter (principal); K65.1 Peritoneal abscess; K26.5 Chronic or unspecified duodenal ulcer with perforation
CPT/HCPCS: A9270; G0463